=== PATIENT | male | born 1950 | race Caucasian/White ===

== ENCOUNTER 2017-02-26 17:46 | Emergency (ER) | payer MEDICARE, MEDICAID, SELFPAY ==
[2017-02-26 17:47] VITALS: BP 137/77; PULSE 64; RESP 18; TEMP 37.3; O2SAT 95; BMI 20.9
[2017-02-26 18:05] VITALS: BP 155/89; PULSE 78; RESP 18; TEMP 37.6; O2SAT 96; BMI 21.1
[2017-02-26 19:26] VITALS: BP 147/88; PULSE 85; RESP 20; TEMP 37.1; O2SAT 96; BMI 22.2
--- NOTE | 2017-02-26 19:31 | XR_ITS ---
XR chest 2V Ordering Physician: Cristhian Thacker Patient Age: 66 years: Male HISTORY: ITS.REASON: CHEST CONGESTIONcough 2 days. Smoker TECHNIQUE: PA and lateral chest COMPARISON :Previous PA and lateral chest 02/21/2016 FINDINGS A suspect there is a subtle patchy infiltrate towards the left base on today's study involving the left lower lobe. There are some chronic changes which is been seen here previously but the density in this region is more pronounced than on previous studies. Upper normal markings at the right infrahilar region. Upper lung marin appear stable. The heart annie and mediastinal structures unchanged. Postsurgical changes lower C-spine. T-spine appears unchanged again noting the mild inferior endplate irregularity inferior L1 vertebral IMPRESSION: ------- Low-density patchy left lower lobe pneumonia.
[2017-02-26 19:48] LABS: UTC Influenza A Antigen Negative (Negative); UTC Influenza B Antigen Negative (Negative)
--- NOTE | 2017-02-26 20:44 | PC.NURSE ---
Just went in to see pt. C/o cough x 1 week that has progressed to dizziness, diaphoresis, weakness, no appetite, SOA last 2-3 days. CXR final before I saw pt and indicates LLL PNA. Discussed with PCP and ER MD, Dr. Vance. Aware I feel pt would benefit from full PNA workup given symptoms. Dr. Vance agreeable to transfer to ER. Pt taken over in w/c by DENISSE Boucher.
--- NOTE | 2017-02-26 23:40 | HMH.EDSOB ---
ED Disposition Clinical Impression: CAP (community acquired pneumonia) Qualifiers: Laterality: right Lung location: lower lobe of lung Qualified Code(s): J18.1 - Lobar pneumonia, unspecified organism Disposition: Home, Self-Care Condition on Discharge: Good Instructions: Pneumonia-Adult Additional Instructions: fluids and use meds and see pcp for follow up Prescriptions: Azithromycin [Zithromax 250mg tab] 250 mg PO DIRECTED #6 tab Benzonatate [Tessalon Perle 100mg Cap] 100 mg PO TID #30 cap predniSONE [Prednisone 20mg Tab] 20 mg PO DAILY #10 tab Referrals: John Vance MD [Primary Care Provider] - - Critical Care Critical Care Time: No Attestation: On 02/26/17, the high probability of a clinically significant, sudden or life threatening deterioration of the following system(s) required my full and direct attention, intervention and personal management. The time I documented below is in addition to time spent performing reported procedures but includes the following listed in this critical care notation. Medical Decision Making - Medical Records Medical records reviewed: Yes: I reviewed the patient's medical records. Vital Signs: 02/26/17 17:47 02/26/17 18:05 02/26/17 19:26 Temperature 99.1 F 99.6 F 98.7 F Temperature Source Oral Oral Temporal Artery Scan Pulse Rate [Right Brachial] 64 78 85 Respiratory Rate 18 18 20 Blood Pressure [Right Arm] 137/77 155/89 147/88 Blood Pressure Mean [Right Arm] 97 111 107 Blood Pressure Source [Right Arm] Automatic Cuff Automatic Cuff Blood Pressure Position [Right Arm] Sitting Sitting 02 Sat by Pulse Oximetry 95 96 96 Oxygen Delivery Method Room Air Room Air - Lab Data Lab results reviewed: Yes: I reviewed the patient's lab results. Lab Results 02/26/17 19:29: Influenza Type A Ag Negative, Influenza Type B Ag Negative 02/26/17 23:20: WBC 11.2 H, RBC 4.87, Hgb 14.0 L, Hct 42.0, MCV 86.3, MCH 28.8, MCHC 33.4, RDW 12.3, Plt Count 327, MPV 7.1 L, Neut % (Auto) 76.0, Lymph % (Auto) 18.4, Clinch % (Auto) 4.1, Eos % (Auto) 1.2, Baso % (Auto) 0.3, Neut # (Auto) 8.5 H, Lymph # (Auto) 2.1, Clinch # (Auto) 0.5, Eos # (Auto) 0.1, Baso # (Auto) 0.0 02/26/17 23:20: Sodium 135 L, Potassium 3.9, Chloride 99, Carbon Dioxide 30, Anion Gap 9.9, BUN 18, Creatinine 0.94, Estimated Creat Clear 65, Estimated GFR 81, Est GFR ( Amer) 97, Glucose 99, Calcium 9.0, Total Bilirubin 0.4, AST 12 L, ALT 12, Alkaline Phosphatase 72, Total Protein 7.3, Albumin 2.9 L, Globulin 4.4 H, Albumin/Globulin Ratio 0.7 L 02/26/17 23:20: Lactic Acid 0.9 Result diagrams: 02/26/17 23:20 02/26/17 23:20 Orders (Tests/Meds): ED MEDICATIONS Discontinued Medications Generic Name Dose Route Start Last Admin Trade Name Benjaminq PRN Reason Stop Dose Admin Methylprednisolone Sodium Succinate 125 mg 02/26/17 23:51 02/26/17 23:59 Solu-Medrol 125mg/2ml Vial IV 02/26/17 23:52 125 mg ONCE ONE Administration ORDERS Category Date Time Status Upper Respiratory Panel, PCR Stat Lab 02/26/17 23:40 Received Blood Culture Stat Micro 02/26/17 23:20 Received - Radiology Data #1 Image(s): Chest Image Reviewed: Yes I reviewed the patient's radiology image Preliminary Findings: Abnormal (lll changes) - Salvador Inquiry Pt receiving controlled substance: No Resp/SOB HPI - General Chief Complaint: Upper Respiratory Infection Stated Complaint: weak, headache, body aches Time Seen by Provider: 02/26/17 23:40 Mode of Arrival: Ambulatory Source of Information: Patient Limitations: No Limitations Description of Symptoms (Recalled from ER Triage Doc. by RN): FEELS LIKE I HAVE THE FLU. SICK FOR 1 WEEK - History of Present Illness pt with sob and prod cough w/o hemoptysis over the last week - MD Complaint: shortness of breath, cough Onset (ago): day(s) Severity: moderate Exacerbating factors: coughing Treatment prior to arrival: none - Related Data Home oxyge
[2017-02-26 23:51] LABS: Basophils % 0.3 % (0.1-2.0); Eosinophils # 0.1 K/mm3 (0.0-0.4); Eosinophils % 1.2 % (0.1-12.0); Lymphocytes # 2.1 K/mm3 (0.7-4.5); Lymphocytes % 18.4 K/mm3 (10-50); Mean Corpuscular HGB Conc 33.4 g/dL (31.8-35.4); Mean Corpuscular Hemoglobin 28.8 pg (27.0-31.2); Mean Corpuscular Volume 86.3 fl (80-94); Mean Platelet Volume 7.1 fl (7.4-10.4); Monocytes # 0.5 K/mm3 (0.1-1.0); Monocytes % 4.1 % (1.7-9.3); Neutrophils # 8.5 K/mm3 (1.8-7.8); Platelet Count 327 K/mm3 (142-424); Red Blood Count 4.87 M/mm3 (4.60-6.20); Red Cell Distribution Width 12.3 % (11.5-17.5); White Blood Count 11.2 K/mm3 (4.8-10.8)
[2017-02-26 23:56] LABS: Adenovirus,PCR Not Detected (NotDetected); Bordetella Pertussis Not Detected (NotDetected); Chlamydophila Pneumoniae, PCR Not Detected (NotDetected); Coronavirus 229E Not Detected (NotDetected); Coronavirus NL63 Not Detected (NotDetected); Coronavirus OC43 Not Detected (NotDetected); Coronovirus HKU1,PCR Not Detected (NotDetected); Human Metapneumovirus Not Detected (NotDetected); Influenza A, PCR Not Detected (NotDetected); Influenza AH1, 2009 Not Detected (NotDetected); Influenza AH1, PCR Not Detected (NotDetected); Influenza AH3,PCR Not Detected (NotDetected); Influenza B, PCR Not Detected (NotDetected); Mycoplasma Pneumoniae, PCR Not Detected (NotDected); Parainfluenza 1, PCR Not Detected (NotDetected); Parainfluenza 2, PCR Not Detected (NotDetected); Parainfluenza 3, PCR Not Detected (NotDetected); Parainfluenza 4, PCR Not Detected (NotDetected); Respiratory Syncytial Virus Not Detected (NotDetected); Rhinovirus/Enterovirus Not Detected (NotDetected)
[2017-02-27 00:03] LABS: Lactic Acid 0.9 mmol/L (0.4-2.0)
[2017-02-27 00:05] LABS: Alanine Aminotransferase 12 U/L (12-78); Albumin Level 2.9 gm/dL (3.4-5.0); Albumin/Globulin Ratio 0.7 (1.1-1.8); Alkaline Phosphatase 72 U/L (46-116); Anion Gap 9.9 mEq/L (5-15); Aspartate Amino Transferase 12 U/L (15-37); Bilirubin,Total 0.4 mg/dL (0.2-1.0); Blood Urea Nitrogen 18 mg/dL (7-18); Carbon Dioxide 30 mmol/L (21.0-32.0); Chloride 99 mmol/L (98-107); Creatinine Clearance Estimated 65 mL/min (0-300); Creatinine,Serum 0.94 mg/dL (0.70-1.30); Estimated Glomerular Filt Rate 81 ml/min (>60); GFR (African American) 97 ML/MIN (>60); Globulin 4.4 gm/dl (1.3-3.2); Glucose 99 mg/dL (74-106); Potassium 3.9 mmoL/L (3.5-5.1); Sodium 135 mmol/L (136-145); Total Protein,Serum 7.3 gm/dL (6.4-8.2)
== END 2017-02-27 01:39 | disposition home or self-care (01) ==
LOC: UTC 19:08 → ER 20:46
PROVIDERS: Emergency Provider Nurse Practitioner Family; PCP Emergency Medicine
DX: J18.9 Pneumonia, unspecified organism (principal); Z79.891 Long term (current) use of opiate analgesic; Z79.899 Other long term (current) drug therapy; F17.210 Nicotine dependence, cigarettes, uncomplicated
CPT/HCPCS: 71046; 80053; 83605; 85025; 87040; 87486; 87581; 87633; 87798; 87804; 99283

== ENCOUNTER → 2017-03-23 08:48 | Outpatient (CLI) | payer MEDICARE, MEDICAID, SELFPAY ==
--- NOTE | 2017-03-23 09:06 | MR_ITS ---
MR lumbar spine wo con, MR 3-d myelogram/MRCP HISTORY: Low back pain with tingling and numbness down both legs ITS.REASON: LUMBAR RADICULOPATHY ORDERING PHYSICIAN: Adali Browne MD PATIENT AGE: 67 years COMPARISON: 07/21/2010 TECHNIQUE: Standard multiplanar multiecho sequences are performed without contrast. 3-D MIP and myelographic images are also rendered and reviewed FINDINGS: Spinal cord ends at the T12-L1 level. T12-L1: Unremarkable. L1-L2: Mild degenerative disc disease with minimal bulging disc with a Schmorl's node along the inferior endplate of L1 anteriorly. Mild facet ligamentum flavum hypertrophy. L2-L3: Mild concentric bulging disc with mild retrolisthesis of L2 of 3 mm. Mild facet ligamentum hypertrophy. Mild left foraminal narrowing. L3-L4: Mild concentric bulging disc along facet ligamentum flavum hypertrophy with mild to moderate bilateral foraminal narrowing. L4-L5: Mild concentric bulging disc with facet and ligamentum hypertrophy with bilateral lateral recess narrowing and [id number] bilateral foraminal narrowing slightly greater on the left. Small T2 hyperintensity is present along the medial aspect of the facet joint and may represent the beginning of a small synovial cyst measuring approximately 3 to 4 mm AP and 15 mm cephalad to caudad causing mild left lateral recess narrowing. Mild narrowing of the canal at L4-L5 L5-S1: Minimal bulging disc. No canal stenosis or extruded herniated disc evident. IMPRESSION: 1. Mild lumbar spondylosis with mild multilevel degenerative disc disease with bulging disc along the facet ligamentum flavum hypertrophy with varying areas of foraminal lateral recess narrowing. Please see above for detailed description at each level. 2. Mild concentric bulging disc with facet and ligamentum hypertrophy with bilateral lateral recess narrowing and [id number] bilateral foraminal narrowing slightly greater on the left. Small T2 hyperintensity is present along the medial aspect of the facet joint and may represent the beginning of a small synovial cyst measuring approximately 3 to 4 mm AP and 15 mm cephalad to caudad causing mild left lateral recess narrowing. Mild narrowing of the canal at L4-L5
--- NOTE | 2017-03-23 09:06 | MR_ITS ---
MR lumbar spine wo con, MR 3-d myelogram/MRCP HISTORY: Low back pain with tingling and numbness down both legs ITS.REASON: LUMBAR RADICULOPATHY ORDERING PHYSICIAN: Adali Browne MD PATIENT AGE: 67 years COMPARISON: 07/21/2010 TECHNIQUE: Standard multiplanar multiecho sequences are performed without contrast. 3-D MIP and myelographic images are also rendered and reviewed FINDINGS: Spinal cord ends at the T12-L1 level. T12-L1: Unremarkable. L1-L2: Mild degenerative disc disease with minimal bulging disc with a Schmorl's node along the inferior endplate of L1 anteriorly. Mild facet ligamentum flavum hypertrophy. L2-L3: Mild concentric bulging disc with mild retrolisthesis of L2 of 3 mm. Mild facet ligamentum hypertrophy. Mild left foraminal narrowing. L3-L4: Mild concentric bulging disc along facet ligamentum flavum hypertrophy with mild to moderate bilateral foraminal narrowing. L4-L5: Mild concentric bulging disc with facet and ligamentum hypertrophy with bilateral lateral recess narrowing and [id number]-rh-[id number] bilateral foraminal narrowing slightly greater on the left. Small T2 hyperintensity is present along the medial aspect of the facet joint and may represent the beginning of a small synovial cyst measuring approximately 3 to 4 mm AP and 15 mm cephalad to caudad causing mild left lateral recess narrowing. Mild narrowing of the canal at L4-L5 L5-S1: Minimal bulging disc. No canal stenosis or extruded herniated disc evident. IMPRESSION: 1. Mild lumbar spondylosis with mild multilevel degenerative disc disease with bulging disc along the facet ligamentum flavum hypertrophy with varying areas of foraminal lateral recess narrowing. Please see above for detailed description at each level. 2. Mild concentric bulging disc with facet and ligamentum hypertrophy with bilateral lateral recess narrowing and [id number] bilateral foraminal narrowing slightly greater on the left. Small T2 hyperintensity is present along the medial aspect of the facet joint and may represent the beginning of a small synovial cyst measuring approximately 3 to 4 mm AP and 15 mm cephalad to caudad causing mild left lateral recess narrowing. Mild narrowing of the canal at L4-L5
== END ==
PROVIDERS: PCP Emergency Medicine; Visit Provider Physical Medicine & Rehabilitation
DX: M54.5 Low back pain (principal)
CPT/HCPCS: 72148; 76376

== ENCOUNTER → 2017-03-30 13:17 | Outpatient (CLI) | payer MEDICARE, MEDICAID, SELFPAY ==
--- NOTE | 2017-03-30 13:27 | MR_ITS ---
MR cervical spine wo/w con, MR 3-d myelogram/MRCP HISTORY: ITS.REASON: CERVICAL POST LAMINECTOMY SYNDROME ORDERING PHYSICIAN: Adali Browne MD PATIENT AGE: 67 years COMPARISON: 06/20/2010 TECHNIQUE: Standard multiplanar multiecho sequences are performed without and with gadolinium enhancement . 3-D MIP and myelographic images are also rendered and reviewed FINDINGS: There has been prior cervical fusion with fusion of the C5-C6 vertebral bodies. Posterior fixator device is present with interpedicular screws at C4, C5, and C6 and C7. The craniocervical junction has an unremarkable appearance. C2-C3: Unremarkable. C3-C4: Extensive artifact is present on axial images. No obvious disc herniation. There is mild narrowing of the canal at 9 mm C4-C5: Degenerative disc disease. Prior laminectomy at C4 with posterior fixation. Extensive artifact noted from interpedicular screws C5-C6: Prior fusion with extensive artifact from interpedicular screws. C6-C7: Degenerative disc disease extensive artifact from interpedicular screws. C7-T1: Unremarkable. No enhancing epidural fibrosis IMPRESSION: Postsurgical changes with extensive artifact as described above and multilevel degenerative disc disease. Interpedicular screws at C4, C5, C6, and C7. Borderline canal stenosis at C3-C4. No enhancing epidural fibrosis No disc herniation evident.
[2017-03-30 13:33] LABS: Blood Urea Nitrogen 16 mg/dL (7-18); Creatinine,Serum 1.13 mg/dL (0.70-1.30); Estimated Glomerular Filt Rate 65 ml/min (>60); GFR (African American) 79 ML/MIN (>60)
== END ==
PROVIDERS: PCP Emergency Medicine; Visit Provider Physical Medicine & Rehabilitation
DX: M96.1 Postlaminectomy syndrome, not elsewhere classified (principal); M54.12 Radiculopathy, cervical region
CPT/HCPCS: 36415; 72156; 76376; 82565; 84520; A9576

== ENCOUNTER → 2017-11-19 14:27 | Outpatient (POV) | payer MEDICARE, MEDICAID, SELFPAY ==
[2017-11-19 14:44] VITALS: BP 160/80; PULSE 88; RESP 18; O2SAT 98
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
== END ==
PROVIDERS: PCP Emergency Medicine; Visit Provider Clinical Nurse Specialist Family Health
DX: M54.41 Lumbago with sciatica, right side (principal); M54.42 Lumbago with sciatica, left side
CPT/HCPCS: 99202

== ENCOUNTER → 2018-01-16 18:13 | Outpatient (CLI) | payer MEDICARE, MEDICAID, SELFPAY ==
[2018-01-16 22:42] LABS: Amphetamine/Metha Screen,Urine Negative ng/mL (<1000); Barbiturates Screen,Urine Negative ng/mL (<200); Benzodiazepines Screen,Urine Negative ng/mL (<200); Cannabinoid Screen,Urine Negative ng/mL (<50); Cocaine Screen,Urine Negative ng/mL (<300); Methadone Screen,Urine Negative ng/mL (<300); Opiate Screen,Urine Negative ng/mL (<300); Phencyclidine Screen,Urine Negative ng/mL (<25)
== END ==
PROVIDERS: Visit Provider Emergency Medicine
DX: M54.2 Cervicalgia (principal)
CPT/HCPCS: 80305

== ENCOUNTER → 2018-12-05 14:41 | Outpatient (CLI) | payer MEDICARE, MEDICAID, SELFPAY ==
--- NOTE | 2018-12-05 14:46 | MR_ITS ---
PROCEDURE: MR CERVICAL SPINE WO CON CLINICAL INDICATION: CERVICAL RADICULOPATHY Bilateral shoulder and arm pain with bilateral hand tingling. Prior neck surgery, COMPARISON: CSWO CT CERVICAL SPINE W/O CONT from 07/11/2012 [facility] MR cervical spine wo/w con from 03/30/2017 TECHNIQUE: Standard multiplanar multiecho sequences are performed without contrast. 3-D MIP and myelographic images are also rendered and reviewed FINDINGS: There is normal alignment. The cranial cervical junction has an unremarkable appearance. C2-C3: Unremarkable. C3-C4: Unremarkable. C4-C5: Degenerate disc disease with minimal anterolisthesis of C4 of 3 mm. Postsurgical change with inter pedicular screws as C4 C5-C6: Prior fusion with extensive artifact. There artifact obscures fine detail. There is good alignment at the fusion. The vertebral bodies are fused. C6-C7: Degenerate disc disease with some mild bulging disc slightly eccentric toward the right with mild right-sided foraminal narrowing. There is some increased T1 and T2 signal along the superior endplate of C7.. Inter pedicular screws are present at C7. The right inter pedicular screws directed downward and extends into the C7-T1 interspace. This is better demonstrated on the CT scan and unchanged from 07/11/2012. Artifact is present at this level. No malalignment. There is mild reversal of the cervical lordosis at the C4-C5 level. There is canal stenosis at C3-C4 a 10 mm but no cord impingement apparent. There is overall no significant change from the previous MRI of 03/30/2017. IMPRESSION: Degenerative changes and postsurgical changes as described above with canal stenosis at C3-C4. Please see above for detailed description at each level. Overall no significant change compared to the previous exam Dictated by: Stewart Nguyen MD 12/06/2018 12:12 Electronically signed by Stewart Nguyen MD in [place] 12/07/2018 10:13
== END ==
PROVIDERS: PCP Emergency Medicine; Visit Provider Anesthesiology Pain Medicine
DX: M54.12 Radiculopathy, cervical region (principal); M47.812 Spondylosis without myelopathy or radiculopathy, cervical region; M96.1 Postlaminectomy syndrome, not elsewhere classified
CPT/HCPCS: 72141; 76376

== ENCOUNTER 2020-03-18 07:56 | Observation (INO) | payer MEDICARE, MEDICAID, SELFPAY ==
[2020-03-18] VITALS (13 sets, daily range): BP systolic 130–178; BP diastolic 66–106; PULSE 62–91; RESP 17–22; TEMP 36.8–37.1; O2SAT 95–99; BMI 21.6
--- NOTE | 2020-03-18 07:53 | ECG_ITS ---
APPROVED REPORT Exam: Resting ECG HR:70 bpm ECG Measurements Heart Rate 70 AXES PA 138 P 79 QRSd 100 QRS 75 QT 386 T 55 QTc 416 Conclusion Normal sinus rhythm with sinus arrhythmia Normal ECG Electronically signed by : Mendez Romano, 03/19/2020 06:39:12
--- NOTE | 2020-03-18 07:59 | XR_ITS ---
PROCEDURE: XR CHEST PORTABLE CLINICAL HISTORY: SOA COMPARISON: CR CXR CHEST(2 VIEWS-NOT PORTABLE) from 02/03/2016 CR CXR CHEST(2 VIEWS-NOT PORTABLE) from 02/21/2016 CR CXR2V XR chest 2V from 02/26/2017 FINDINGS: The cardiomediastinal silhouette and pulmonary vascularity are within normal limits. Vague increased density is present in the right midlung laterally overlying the 4th rib anteriorly and may be related to an area of patchy ground-glass infiltrate versus summation artifact. Follow-up may confirm. Postsurgical changes of the lower cervical spine IMPRESSION: Possible right midlung infiltrate Dictated by: Stewart Nguyen MD 03/18/2020 09:02 Stewart Nguyen MD in [place] 03/18/2020 09:02
--- NOTE | 2020-03-18 08:05 | HMH.EDSOB ---
ED Disposition Clinical Impression: Acute exacerbation of chronic obstructive airways disease, Renal insufficiency CAP (community acquired pneumonia) Qualifiers: Laterality: right Lung location: upper lobe of lung Qualified Code(s): J18.9 - Pneumonia, unspecified organism Disposition: Admitted As Inpatient Condition on Discharge: Good Referrals: PCP,No [Primary Care Provider] - - Critical Care Critical Care Time: No Attestation: On , the high probability of a clinically significant, sudden or life threatening deterioration of the following system(s) required my full and direct attention, intervention and personal management. The time I documented below is in addition to time spent performing reported procedures but includes the following listed in this critical care notation. Medical Decision Making - Medical Records Medical records reviewed: Yes: I reviewed the patient's medical records. - [place] Inquiry Pt receiving controlled substance: No Vital Signs: 03/18/20 08:01 03/18/20 08:40 03/18/20 09:10 Pulse Rate [Right Brachial] 77 64 62 Respiratory Rate 22 Blood Pressure [Right Arm] 178/106 H 154/90 H 146/94 H Blood Pressure Mean [Right Arm] 130 111 111 Blood Pressure Source [Right Arm] Automatic Cuff Automatic Cuff Automatic Cuff Blood Pressure Position [Right Arm] Sitting Sitting Sitting 02 Sat by Pulse Oximetry 97 97 98 Oxygen Delivery Method Room Air Room Air Room Air Oxygen Flow Rate (LPM) 2 - Lab Data Lab results reviewed: Yes: I reviewed the patient's lab results. Lab Results 03/18/20 07:58: WBC 9.1, RBC 4.99, Hgb 14.6, Hct 45.2, MCV 90.7, MCH 29.2, MCHC 32.2, RDW 13.7, Plt Count 248, MPV 7.2 L, Neut % (Auto) 43.2, Lymph % (Auto) 43.8, [place] % (Auto) 4.4, Eos % (Auto) 7.7, Baso % (Auto) 0.9, Neut # (Auto) 3.9, Lymph # (Auto) 4.0, [place] # (Auto) 0.4, Eos # (Auto) 0.7 H, Baso # (Auto) 0.1 03/18/20 07:58: Sodium 139, Potassium 3.9, Chloride 104, Carbon Dioxide 32 H, Anion Gap 6.9, BUN 21 H, Creatinine 1.30 H, Estimated Creat Clear 45, Estimated GFR 55 L, Est GFR ( Amer) 66, Glucose 97, Calcium 9.1, Total Bilirubin 0.3, AST 25, ALT 17, Alkaline Phosphatase 74, Troponin I < 0.01, Total Protein 7.2, Albumin 4.0, Globulin 3.2, Albumin/Globulin Ratio 1.3 03/18/20 07:58: Lactate 1.3 03/18/20 : Specimen Source Right radial, O2 % 2lpm nc, ABG pH 7.39, ABG pCO2 40.2, ABG pO2 177.8 H, ABG HCO3 23.8, ABG Total CO2 25.1, ABG O2 Saturation 99, ABG Base Excess -1.1, Stewart Test Acceptable Result diagrams: 03/18/20 07:58 03/18/20 07:58 Orders (Tests/Meds): ED MEDICATIONS Generic Name Dose Route Start Last Admin Trade Name Freq PRN Reason Stop Dose Admin Sodium Chloride 1,000 mls @ 999 mls/hr 03/18/20 09:30 03/18/20 09:26 Sod Chlor 0.9% 1000ml Bag IV 03/18/20 10:30 999 mls/hr .Q1H1M GERALDO Administration Discontinued Medications Generic Name Dose Route Start Last Admin Trade Name Freq PRN Reason Stop Dose Admin Dexamethasone Sodium Phosphate 10 mg 03/18/20 09:35 03/18/20 09:36 Dexamethasone 4mg/Ml 1ml Vial IV 03/18/20 09:36 10 mg ONCE ONE Administration ORDERS Category Date Time Status Full Resp Panel w/COVID ([facility]) Routine Lab 03/18/20 07:58 Received Troponin I Q3H Lab 03/18/20 11:00 Ordered Troponin I Q3H Lab 03/18/20 14:00 Ordered Blood Culture Stat Micro 03/18/20 07:58 Received - Radiology Data #1 Image(s): Chest Image Reviewed: Yes I reviewed the patient's radiology image Preliminary Findings: Abnormal (possible inflitrate ) - ECG Data Tracing #1 Normal Sinus Rhythm: Yes Ischemic changes: non-specific ST-T wave changes Medical Decision Narrative: acute sob with abn cxr and abg as he wason 100 % in ems - pt will need treatment with abx and steroids and resp treatment and determine covid-19 status Resp/SOB HPI - General Chief Complaint: Shortness of Breath/Dyspnea Stated Complaint: Soa Time Seen by Provider: 03/18/20 08:05 Mod
[2020-03-18 08:07] LABS: ABG Base Excess -1.1 mmol/L (-2.4-2.3); ABG HCO3 23.8 mmhg (22.0-26.0); ABG Oxygen Saturation 99 % (90-100); ABG PCO2 40.2 mmhg (35.0-45.0); ABG PH 7.39 mmol/L (7.35-7.45); ABG PO2 177.8 mmhg (80-100); ABG TCO2 25.1 mmhg (23-27); Allen's Test Acceptable; Oxygen 2LPM NC %; Source Right Radial
[2020-03-18 08:14] LABS: Basophils # 0.1 K/mm3 (0-0.2); Basophils % 0.9 % (0.1-2.0); Eosinophils # 0.7 K/mm3 (0.0-0.4); Eosinophils % 7.7 % (0.1-12.0); Hematocrit 45.2 % (42.0-52.0); Hemoglobin 14.6 g/dL (14.1-18.0); Lymphocytes % 43.8 % (10-50); Mean Corpuscular HGB Conc 32.2 g/dL (31.8-35.4); Mean Corpuscular Hemoglobin 29.2 pg (27.0-31.2); Mean Corpuscular Volume 90.7 fl (80-94); Mean Platelet Volume 7.2 fl (7.4-10.4); Monocytes # 0.4 K/mm3 (0.1-1.0); Monocytes % 4.4 % (1.7-9.3); Neutrophils # 3.9 K/mm3 (1.8-7.8); Neutrophils % 43.2 % (37.0-80.0); Platelet Count 248 K/mm3 (142-424); Red Blood Count 4.99 M/mm3 (4.60-6.20); Red Cell Distribution Width 13.7 % (11.5-17.5); White Blood Count 9.1 K/mm3 (4.8-10.8)
[2020-03-18 08:17] LABS: Chloride 104 mmol/L (98-107)
[2020-03-18 08:18] LABS: Potassium 3.9 mmoL/L (3.5-5.1); Sodium 139 mmol/L (136-145)
[2020-03-18 08:20] LABS: Alanine Aminotransferase 17 U/L (12-78); Alkaline Phosphatase 74 U/L (38-126); Anion Gap 6.9 mEq/L (5-15); Aspartate Amino Transferase 25 U/L (17-59); Bilirubin,Total 0.3 mg/dl (0.2-1.3); Blood Urea Nitrogen 21 mg/dl (9-20); Carbon Dioxide 32 mmol/L (22.0-30.0); Creatinine Clearance Estimated 45 mL/min (50-200); Estimated Glomerular Filt Rate 55 ml/min (>60); GFR (African American) 66 ML/MIN (>60)
[2020-03-18 08:21] LABS: Albumin/Globulin Ratio 1.3 (1.1-1.8); Calcium 9.1 mg/dl (8.4-10.2); Globulin 3.2 g/dL (1.3-3.2); Glucose 97 mg/dl (74-100); Total Protein,Serum 7.2 g/dl (6.3-8.2)
[2020-03-18 08:24] LABS: Lactic Acid 1.3 mmol/L (0.7-2.1)
[2020-03-18 08:39] LABS: Troponin I < 0.01 ng/ml (0.00-0.034)
[2020-03-18 09:46] LABS: Adenovirus,PCR Not Detected (NotDetected); Bordetella Pertussis Not Detected (NotDetected); Chlamydophila Pneumoniae, PCR Not Detected (NotDetected); Coronavirus 19, PCR Not Detected (NotDetected); Coronavirus 229E Not Detected (NotDetected); Coronavirus NL63 Not Detected (NotDetected); Coronavirus OC43 Not Detected (NotDetected); Coronovirus HKU1,PCR Not Detected (NotDetected); Human Metapneumovirus Not Detected (NotDetected); Influenza A, PCR Not Detected (NotDetected); Influenza AH1, 2009 Not Detected (NotDetected); Influenza AH1, PCR Not Detected (NotDetected); Influenza AH3,PCR Not Detected (NotDetected); Influenza B, PCR Not Detected (NotDetected); Mycoplasma Pneumoniae, PCR Not Detected (NotDetected); Parainfluenza 1, PCR Not Detected (NotDetected); Parainfluenza 2, PCR Not Detected (NotDetected); Parainfluenza 3, PCR Not Detected (NotDetected); Parainfluenza 4, PCR Not Detected (NotDetected); Respiratory Syncytial Virus Not Detected (NotDetected); Rhinovirus/Enterovirus Not Detected (NotDetected)
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
--- NOTE | 2020-03-18 10:39 | CA_ITS ---
APPROVED REPORT EXAM: Comprehensive 2D, Doppler, and color-flow Echocardiogram [employer] Sales: Joycelyn Villaseñor RCS, RVS Ht: 5 ft 5 in Wt: 130lbs BSA: 1.65 BP: 151/89 mmHg Indications: COPD, SMOKER, CAD-w/coronary stent/s, SOB, Murmur, HTN 2D Dimensions LA Volume 34.40 mL LA Volume Index 20.80 mL/m2 (M/F) 16-34 M-Mode Dimensions RVDd 3.79 cm (0.9-2.6) LA Diam 3.44 cm (1.9-4.0) LVDd 3.79 cm (3.5-5.7) Ao Diam 3.05 cm (2.0-3.7) LVDs 2.59 cm (3.5-5.7) IVSd 1.11 cm (0.6-1.1) PWd 0.82 cm (0.6-1.1) EF (Teich) 49.30% EPSs 0.32 cm FS 24.30% EDV (Teich) 48.10 mL TAPSE 1.88 (<1.7) ESV (Teich) 24.40 mL LV Diastology E Decel Time 233.00 (160-240 msec) E/A Ratio 1.07 MED E' 7.50 (< 7 cm/sec) MED A' 11.20 cm/s E'/MED E' Ratio 10.13 (>14) LAT E' 10.00 (<10 cm/sec) LAT A' 8.90 cm/s E/LAT E' Ratio 7.60 (>14) Pulm Vein s 40.00 cm/sec Pulm Vein d 30.00 cm/sec Ar-A Duration 177.00 msec Aortic Valve LVOT Max 96.00 (70-110 cm/s) LVOT VTI 19.38 cm AO Peak GR. 4.20 mmHg Mitral Valve MV A Velocity 71.00 (40-130 cm/s) E/A Ratio 1.07 MV Decel. Time 233.00 (160-240 ms) Pulmonary Valve PV Peak Velocity 65.00 (50-150 cm/s) Tricuspid Valve TR P. Velocity 231.00 cm/s RAP Estimate 10.00 mmHg RVSP 31.30 mmHg Left Ventricle Left atrium is mildly enlarged, left ventricle is normal size, mild concentric left ventricular hypertrophy, visually estimated ejection fraction 50%, there is marked hypokinesis involving the inferior basal and posterolateral wall. Grade 1 diastolic dysfunction seen without tissue Doppler evidence of raise left atrial pressure. Right Ventricle Right atrium and right ventricle are mildly enlarged with normal contractility. Aortic Valve Aortic valve is minimally thickened and fibrosed, there is no aortic stenosis or aortic insufficiency. Mitral Valve Mitral valve is grossly normal, there is mild mitral regurgitation. Tricuspid Valve Tricuspid valve is grossly normal, there is mild tricuspid regurgitation, tricuspid regurgitation jet velocity is inadequate for calculation of the right ventricular systolic pressure. Pulmonic Valve Pulmonic valve is poorly visualized. Great Vessels Aortic root is normal size. Pericardium No significant pericardial effusion noted. Conclusion 1. Mild biatrial enlargement, normal left ventricular size, mild concentric left ventricular hypertrophy, visually estimated ejection fraction 50% with segmental wall motion abnormality described above, grade 1 diastolic dysfunction seen without tissue Doppler evidence of raise left atrial pressure. 2. Mildly enlarged right ventricle with normal contractility. 3. Mild mitral and tricuspid regurgitation. 4. No significant pericardial effusion noted. Electronically signed by : Sj Adkins, 03/19/2020 13:18:19
--- NOTE | 2020-03-18 10:47 | PC.NURSE ---
Per Ashli in lab swab has about 15 minutes left
[2020-03-18 11:25] LABS: Troponin I < 0.01 ng/ml (0.00-0.034)
--- NOTE | 2020-03-18 11:53 | PC.NURSE ---
This nurse went down @ 1120 to get pt. Echo @ bedside, pt not brought up to floor d/t this. Left message for ED staff to call when pt ready for transport.
--- NOTE | 2020-03-18 12:27 | PC.NURSE ---
patient came to floor by stretcher
--- NOTE | 2020-03-18 13:47 | PC.NURSE ---
pt given cup and instructed on cough. Given treatment with no results at this time.
[2020-03-18 14:42] LABS: Troponin I < 0.01 ng/ml (0.00-0.034)
--- NOTE | 2020-03-18 15:15 | PC.NURSE ---
Room air sat @ admission = 97%
--- NOTE | 2020-03-18 18:57 | PC.NURSE ---
Pt on 2 L O2 per nasal cannula for SOA. Medicated per MAR for chronic neck/back pain. Is independent w/ ADL's. Pt did get up and shower w/o issue, tolerated activity well. VSS. No needs voiced.
--- NOTE | 2020-03-18 21:51 | HMH.PHAVTE ---
[facility] Pharmacy VTE Monitoring - Patient Demographics Admission date: 03/18/20 Report Date: 03/18/20 Time: 21:51 Allergies/Adverse Reactions: Patient Allergies acetaminophen [From Tylenol-Codeine #3] Allergy (Verified 03/18/20 08:07) codeine [From Tylenol-Codeine #3] Allergy (Verified 03/18/20 08:07) gabapentin Allergy (Verified 03/18/20 08:07) Height: 1.73 m Weight: 59.874 kg Patient Problems: Current Active Problems Acute exacerbation of chronic obstructive airways disease (Acute) Renal insufficiency (Acute) CAP (community acquired pneumonia) (Acute) - VTE Risk Labs: VTE Related Lab Results Hgb 14.6 g/dL (14.1-18.0) 03/18/20 07:58 Hct 45.2 % (42.0-52.0) 03/18/20 07:58 Plt Count 248 K/mm3 (142-424) 03/18/20 07:58 BUN 21 mg/dl (9-20) H 03/18/20 07:58 Creatinine 1.30 mg/dl (0.66-1.25) H 03/18/20 07:58 Estimated Creat Clear 45 mL/min (50-200) 03/18/20 07:58 Was VTE Risk Assessment Performed: Yes VTE Score: 5 VTE Risk Level: Low Risk Clinical Trial Participant: No - Prophylaxis VTE Prophylaxis Ordered?: Yes Types of VTE Prophylaxis: TEDS Knee High
[2020-03-19] VITALS (8 sets, daily range): BP systolic 124–142; BP diastolic 65–78; PULSE 66–81; RESP 18–19; TEMP 36.7–36.8; O2SAT 95–98
--- NOTE | 2020-03-19 04:58 | PC.NURSE ---
Pt has been pleasant and cooperative this shift. A&O X4. Pt has had frequent complaints of pain and has received Oxycodone per MAR with favorable results. No complaints of SOA. Room air saturation noted to be 97%. O2 in place @ 1 LPM via NC per pt request for comfort. Lung sounds reveal wheezing. Skin is C/D/I with no edema noted. Pt ambulates independently to/from the bathroom and throughout the room. 20 G peripheral IV in the LT AC is patent and infusing NS @ 75 ML/HR. VSS. Call light within reach. Will continue to monitor.
--- NOTE | 2020-03-19 07:24 | HMH.PHAINT ---
MEDICATION RECONCILIATION COMPLETED ON PATIENT USING EXTERNAL FILL HISTORY FROM PHARMACY AND PATIENT INTERVIEW.
[2020-03-19 07:38] LABS: Eosinophils % 0.2 % (0.1-12.0); Monocytes # 0.3 K/mm3 (0.1-1.0); Monocytes % 1.9 % (1.7-9.3); Neutrophils # 12.2 K/mm3 (1.8-7.8); White Blood Count 13.8 K/mm3 (4.8-10.8)
[2020-03-19 07:41] LABS: Chloride 103 mmol/L (98-107); Potassium 4.1 mmoL/L (3.5-5.1); Sodium 133 mmol/L (136-145)
[2020-03-19 07:44] LABS: Anion Gap 11.1 mEq/L (5-15); Blood Urea Nitrogen 22 mg/dl (9-20); Calcium 8.7 mg/dl (8.4-10.2); Carbon Dioxide 23 mmol/L (22.0-30.0); Creatinine Clearance Estimated 60 mL/min (50-200); Estimated Glomerular Filt Rate 74 ml/min (>60); GFR (African American) 90 ML/MIN (>60); Glucose 202 mg/dl (74-100)
[2020-03-19 07:45] LABS: Magnesium 1.8 mg/dl (1.6-2.3)
[2020-03-19 07:51] LABS: Basophils % 0.1 % (0.1-2.0); Hematocrit 38.9 % (42.0-52.0); Lymphocytes # 1.3 K/mm3 (0.7-4.5); Lymphocytes % 9.6 % (10-50); Mean Corpuscular HGB Conc 33.1 g/dL (31.8-35.4); Mean Corpuscular Hemoglobin 29.2 pg (27.0-31.2); Mean Corpuscular Volume 88.1 fl (80-94); Mean Platelet Volume 7.8 fl (7.4-10.4); Neutrophils % 88.2 % (37.0-80.0); Platelet Count 238 K/mm3 (142-424); Red Blood Count 4.41 M/mm3 (4.60-6.20); Red Cell Distribution Width 13.8 % (11.5-17.5)
[2020-03-19 07:59] LABS: Hemoglobin 12.9 g/dL (14.1-18.0)
[2020-03-19 08:01] LABS: MANUAL DIFFERENTIAL MANUAL DIFFERENTIAL (MANUAL DIFF)
[2020-03-19 09:28] LABS: Lymphocytes % 9 % (10-50); Monocytes % 2 % (2-9); Neutrophils % 89 % (42-76); RBC Morphology Normal; Total Cells Counted 100
[2020-03-19 09:29] LABS: Platelet Estimate Normal
--- NOTE | 2020-03-19 09:55 | HMH.ACPN2 ---
Internal Medicine - PN: Subj *Date: 03/19/20 *Time: 08:15 Interval history: pt sitting up in bed states he is doing better, o2 in place. pt states he does not wear o2 at home, Exam Vital signs and Labs for Last 24 Hours: Temp Pulse Resp BP Pulse Ox 98.3 F 72 18 142/78 H 95 03/19/20 08:00 03/19/20 08:00 03/19/20 08:00 03/19/20 08:00 03/19/20 08:00 Laboratory Results - last 24 hr 03/18/20 07:58: Chlamy pneumoniae PCR Not detected, Adenovirus (PCR) Not detected, B. pertussis DNA (PCR) Not detected, Coronavirus OC43 (PCR) Not detected, Coronavirus HKU1 (PCR) Not detected, Coronavirus 229E (PCR) Not detected, SARS-CoV-2 (PCR) Not detected, Coronavirus NL63 (PCR) Not detected, Human Metapneumovir PCR Not detected, Influenza A (H1) PCR Not detected, Influ A (H1N1/09) PCR Not detected, Influenza A (H3) PCR Not detected, Influenza Type A (PCR) Not detected, Influenza Type B (PCR) Not detected, M. pneumoniae (PCR) Not detected, Parainfluenza 1 (PCR) Not detected, Parainfluenza 2 (PCR) Not detected, Parainfluenza 3 (PCR) Not detected, Parainfluenza 4 (PCR) Not detected, RSV (PCR) Not detected, Entero/Rhino (PCR) Not detected 03/18/20 10:56: Troponin I < 0.01 03/18/20 14:00: Troponin I < 0.01 03/19/20 07:20: WBC 13.8 H D, RBC 4.41 L, Hgb 12.9 L D, Hct 38.9 L, MCV 88.1, MCH 29.2, MCHC 33.1, RDW 13.8, Plt Count 238, MPV 7.8, Neut % (Auto) 88.2 H, Lymph % (Auto) 9.6 L, [place] % (Auto) 1.9, Eos % (Auto) 0.2, Baso % (Auto) 0.1, Neut # (Auto) 12.2 H, Lymph # (Auto) 1.3, [place] # (Auto) 0.3, Eos # (Auto) 0.0, Baso # (Auto) 0.0, Total Counted 100, Neutrophils % (Manual) 89 H, Lymphocytes % (Manual) 9 L, Monocytes % (Manual) 2, Platelet Estimate Normal, RBC Morphology Normal 03/19/20 07:20: Sodium 133 L, Potassium 4.1, Chloride 103, Carbon Dioxide 23 D, Anion Gap 11.1, BUN 22 H, Creatinine 1.00 D, Estimated Creat Clear 60, Estimated GFR 74, Est GFR ( Amer) 90 D, Glucose 202 H D, Calcium 8.7, Magnesium 1.8 I & O for Last 24 hours: Intake & Output 03/16/20 03/17/20 03/18/20 03/19/20 11:59 11:59 11:59 11:59 Intake Total 2174 / 2174 Output Total 1450 / 1450 Balance 724 / 724 Weight 132 lb 132 lb Microbiology Reports for the Last 24 Hours: Microbiology 03/18/20 14:00 Sputum - Expectorated Sputum Gram Stain - Final 03/18/20 14:00 Sputum - Expectorated Sputum Sputum Culture - Preliminary - Constitutional no acute distress - *Routine HEENT Exam Head: Present: normocephalic Eye: Present: PERRL ENT: Present: mucous membranes moist - *Routine Neck Exam Present: supple. Absent: lymphadenopathy - *Routine Respiratory Exam Present: wheezes, diminished air movement - *Routine Cardiovascular Exam Present: RRR - *Routine Abdominal Exam Present: soft, normoactive bowel sounds. Absent: tenderness - *Routine Extremities Exam Present: normal capillary refill. Absent: cyanosis, clubbing, edema - *Routine Skin Exam Present: warm. Absent: rash - *Routine Neurological Exam Present: alert, oriented X3 - Routine Psychiatric Exam Present: normal affect Assessment and Plan (1) HTN (hypertension) Status: Acute Qualifiers: Hypertension type: essential hypertension Qualified Code(s): I10 - Essential (primary) hypertension Category: Medical Code(s): I10 - Essential (primary) hypertension (2) Acute exacerbation of chronic obstructive airways disease Status: Acute Category: Medical Code(s): J44.1 - Chronic obstructive pulmonary disease with (acute) exacerbation (3) CAP (community acquired pneumonia) Status: Acute Qualifiers: Laterality: right Lung location: upper lobe of lung Qualified Code(s): J18.9 - Pneumonia, unspecified organism Category: Medical Code(s): J18.9 - Pneumonia, unspecified organism (4) Renal insufficiency Status: Acute Category: Medical Code(s): N28.9 - Disorder of kidney and ureter, unspecified (5) COPD (chronic obstructive pu
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
--- NOTE | 2020-03-19 12:00 | SW/DCPLANNER ---
This patient does not qualify for home O2: per nursing (Deb) patients RA is 95-96%. This patient could discharge home later today.
--- NOTE | 2020-03-19 17:34 | PC.NURSE ---
PATIENT IS A&O X4, LUNGS ARE DIMINISHED, PULSES EQUAL. PATIENT HAS BEEN ON RA STATING AT 94-96%. PATIENT AMBULATES IN ROOM, STEADY GAIT. PATIENT TOLERATES MEALS. NO CONCERNS.
[2020-03-20 04:00] VITALS: BP 122/74; PULSE 75; RESP 18; TEMP 36.6; O2SAT 95
--- NOTE | 2020-03-20 06:00 | PC.NURSE ---
PT HAS RESTED WELL TONIGHT,AUDIBLE WHEEZING NOTED,NON PRODUCTIVE COUGH,DENIES ANY SOB,SAT.LEVEL THIS MORNING 95% ON RA,AFIBRILE MEDICATED A COUPLE TIMES FOR CHRONIC NECK PAIN,IV PATENT AND INFUSING NS AT 75ML/HR,WILL CONTINUE TO MONITOR
[2020-03-20 06:54] VITALS: PULSE 74; O2SAT 95
[2020-03-20 06:54] LABS: Hematocrit 36.1 % (42.0-52.0); Lymphocytes # 1.4 K/mm3 (0.7-4.5); Lymphocytes % 8.4 % (10-50); Mean Corpuscular HGB Conc 33.3 g/dL (31.8-35.4); Mean Corpuscular Hemoglobin 29.6 pg (27.0-31.2); Mean Corpuscular Volume 88.7 fl (80-94); Mean Platelet Volume 7.4 fl (7.4-10.4); Monocytes # 0.5 K/mm3 (0.1-1.0); Monocytes % 2.9 % (1.7-9.3); Neutrophils # 14.4 K/mm3 (1.8-7.8); Neutrophils % 88.7 % (37.0-80.0); Platelet Count 245 K/mm3 (142-424); Red Blood Count 4.06 M/mm3 (4.60-6.20); White Blood Count 16.3 K/mm3 (4.8-10.8)
[2020-03-20 06:59] LABS: Chloride 107 mmol/L (98-107); MANUAL DIFFERENTIAL MANUAL DIFFERENTIAL (MANUAL DIFF); Sodium 137 mmol/L (136-145)
[2020-03-20 07:02] LABS: Blood Urea Nitrogen 22 mg/dl (9-20); Creatinine Clearance Estimated 59 mL/min (50-200); Estimated Glomerular Filt Rate 74 ml/min (>60); GFR (African American) 90 ML/MIN (>60)
[2020-03-20 07:03] LABS: Calcium 8.4 mg/dl (8.4-10.2); Carbon Dioxide 26 mmol/L (22.0-30.0); Glucose 140 mg/dl (74-100)
[2020-03-20 07:17] LABS: Lymphocytes % 13 % (10-50); Monocytes % 1 % (2-9); Neutrophils % 86 % (42-76); Platelet Estimate Normal; RBC Morphology Normal; Total Cells Counted 100
[2020-03-20 08:00] VITALS: BP 149/74; PULSE 84; RESP 20; TEMP 36.6; O2SAT 94
--- NOTE | 2020-03-20 11:54 | HMH.DCSUM ---
General - General Admission date:: 03/18/20 Discharge date: 03/20/20 HPI HPI: this pt presented to the ed per ems with acute sob with hx of copd-pt was seen in the ed with abn cxr and was admitted for eval and treatment - pt with increased resp rate and requiring o2 - Hospital Course Hospital Course: Admitted for cough/dyspnea/excessive sputum production. Placed on azithromycin, ceftriaxone, solumedrol, and duoneb. Upward clinical trajectory with uptitration of steroids. Initially required 02, weaned to room air and maintained good saturations. BC negative Sputum culture grew out respiratory sh[place]ana. CXR showed process in right midlung. Echo showed ef 50 percent with grade 1 diastolic dysfunction. Pulmonary consult obtained while in house. Initial creatinine elevated at 1.30 yielding lower than normal gfr. Renal function improved via subsequent serial measurements. Objective Vital signs: Temp Pulse Resp BP Pulse Ox 97.9 F 84 20 149/74 H 94 L 03/20/20 08:00 03/20/20 08:00 03/20/20 08:00 03/20/20 08:00 03/20/20 08:00 no acute distress, average body habitus, cooperative - *Routine HEENT Exam Head: Present: normocephalic Eye: Present: EOMI, PERRL ENT: Present: mucous membranes moist - *Routine Neck Exam Present: supple - *Routine Respiratory Exam Present: rhonchi. Absent: accessory muscle use, respiratory distress, wheezes - *Routine Cardiovascular Exam Present: RRR - *Routine Abdominal Exam Present: soft, normoactive bowel sounds. Absent: tenderness - *Routine Extremities Exam Absent: cyanosis, clubbing, edema - *Routine Skin Exam Present: warm. Absent: rash Results Labs on day of discharge: Labs from last 24 hours 03/20/20 03/20/20 06:30 06:30 WBC 16.3 H RBC 4.06 L Hgb 12.0 L Hct 36.1 L MCV 88.7 MCH 29.6 MCHC 33.3 RDW 14.0 Plt Count 245 MPV 7.4 Neut % (Auto) 88.7 H Lymph % (Auto) 8.4 L [place] % (Auto) 2.9 Eos % (Auto) 0.0 L Baso % (Auto) 0.0 L Neut # (Auto) 14.4 H Lymph # (Auto) 1.4 [place] # (Auto) 0.5 Eos # (Auto) 0.0 Baso # (Auto) 0.0 Total Counted 100 Neutrophils % (Manual) 86 H Lymphocytes % (Manual) 13 Monocytes % (Manual) 1 L Platelet Estimate Normal RBC Morphology Normal Sodium 137 Potassium 4.0 Chloride 107 Carbon Dioxide 26 Anion Gap 8.0 BUN 22 H Creatinine 1.00 Estimated Creat Clear 59 Estimated GFR 74 Est GFR ( Amer) 90 Glucose 140 H D Calcium 8.4 Preliminary micro results at discharge 03/18/20 07:58 Blood Culture - Preliminary Blood NO GROWTH AFTER 48 HOURS 03/18/20 07:58 Blood Culture - Preliminary Blood NO GROWTH AFTER 48 HOURS DS: Diagnosis - Discharge Diagnosis (1) Acute exacerbation of chronic obstructive airways disease Status: Acute (2) CAP (community acquired pneumonia) Status: Acute (3) Renal insufficiency Status: Resolved (4) COPD (chronic obstructive pulmonary disease) Status: Acute (5) HTN (hypertension) Status: Acute Discharge Plan - Patient Discharge Instructions ACTIVITY: Continue current activity, Ambulate as tolerated DIET: continue same diet - Follow up Plan Follow up with: Ana Rollins MD [Physician] - 05/04/20 10:30 am John Vance MD [Emergency Provider] - 1 week Disposition: Home, Self-Residential Medications: Home Medications Medication Instructions Recorded Confirmed Type Albuterol Sulfate [Proventil Hfa] 1 puff IH Q6HP PRN 03/18/20 03/19/20 History Budesonide/Formoterol Fumarate 1 puff IH BID 03/18/20 03/19/20 History [Symbicort] Oxycodone HCl 10 mg PO TID 03/18/20 03/18/20 History Lidocaine [Lidoderm 5% transdermal 1 each TD DAILY 03/19/20 03/19/20 History patch] Meloxicam [Mobic 7.5mg Tab] 7.5 mg PO BID 03/19/20 03/19/20 History levoFLOXacin [Levaquin 500mg 500 mg PO DAILY #7 tab 03/20/20 Rx tab] predniSONE [Prednisone
--- NOTE | 2020-03-20 13:34 | PC.NURSE ---
THIS RN PROVIDED D/C TEACHING IN REGARDS TO COPD BREATHING, DIET AND WHEN TO CALL THE MD. THIS RN NOTIFIED PATIENT THAT HE WILL HAVE AN OUTPATIENT PFT. PATIENT AND DAUGHTER VERBALIZED AN UNDERSTANDING. THIS RN WALKED INTO ROOM AND PATIENT ALONG WITH HIS DAUGHTER WERE VAPING. THIS RN EXPLAINED THAT WE DO NOT ALLOW SMOKING IN THE FACILITY. PATIENT AND DAUGHTER VERBALIZED AN UNDERSTANDING.
== END 2020-03-20 13:32 | disposition home or self-care (01) ==
LOC: ER 09:54 → 2ND 11:05
PROVIDERS: Nurse Practitioner Family; Admitting Provider Emergency Medicine; Emergency Provider Emergency Medicine; Visit Provider Emergency Medicine
DX: J44.1 Chronic obstructive pulmonary disease with (acute) exacerbation (principal); J18.9 Pneumonia, unspecified organism; I10 Essential (primary) hypertension; Z95.0 Presence of cardiac pacemaker; Z72.0 Tobacco use; N28.9 Disorder of kidney and ureter, unspecified; Z88.8 Allergy status to other drugs, medicaments and biological substances; Z88.5 Allergy status to narcotic agent; Z79.51 Long term (current) use of inhaled steroids; Z79.899 Other long term (current) drug therapy
CPT/HCPCS: 36415; 71045; 80048; 80053; 82803; 83605; 83735; 84484; 85007; 85025; 87040; 87070; 87205; 87581; 87633; 87798; 93005; 93306; 94640; 96365; 96366; 96375; 99284; G0378; J0456

== ENCOUNTER → 2020-04-27 16:43 | Outpatient (CLI) | payer MEDICARE, MEDICAID, SELFPAY ==
--- NOTE | 2020-04-27 16:48 | XR_ITS ---
PROCEDURE: XR CHEST 2V CLINICAL HISTORY: shortness of breath Shortness of air, COPD COMPARISON: CR CXR CHEST(2 VIEWS-NOT PORTABLE) from 02/21/2016 CR CXR2V XR chest 2V from 02/26/2017 CR XR CHEST PORTABLE from 03/18/2020 FINDINGS: The cardiomediastinal silhouette and pulmonary vascularity are within normal limits. COPD changes. No lobar consolidation or collapse. There is some faint increased density in the anterior clear space not readily apparent previously and may be related to a faint area of infiltrate or atelectatic/fibrotic change. Postsurgical changes lower cervical spine. IMPRESSION: COPD. Faint increased density in the anterior clear space suggesting an area of atelectasis or infiltrate or fibrotic change Dictated by: Stewart Nguyen MD 04/27/2020 18:18 Stewart Nguyen MD in [place] 04/27/2020 18:18
[2020-04-27 17:38] LABS: Basophils # 0.1 K/mm3 (0-0.2); Basophils % 0.9 % (0.1-2.0); Eosinophils # 0.2 K/mm3 (0.0-0.4); Eosinophils % 3.1 % (0.1-12.0); Hematocrit 40.4 % (42.0-52.0); Hemoglobin 13.6 g/dL (14.1-18.0); Lymphocytes # 2.1 K/mm3 (0.7-4.5); Mean Corpuscular HGB Conc 33.6 g/dL (31.8-35.4); Mean Corpuscular Hemoglobin 29.6 pg (27.0-31.2); Mean Platelet Volume 7.1 fl (7.4-10.4); Monocytes # 0.3 K/mm3 (0.1-1.0); Monocytes % 4.9 % (1.7-9.3); Neutrophils % 60.2 % (37.0-80.0); Platelet Count 322 K/mm3 (142-424); Red Blood Count 4.59 M/mm3 (4.60-6.20); Red Cell Distribution Width 13.9 % (11.5-17.5); White Blood Count 6.7 K/mm3 (4.8-10.8)
[2020-04-27 18:23] LABS: Alanine Aminotransferase 10 U/L (12-78); Albumin Level 3.9 g/dl (3.5-5.0); Albumin/Globulin Ratio 1.6 (1.1-1.8); Alkaline Phosphatase 81 U/L (38-126); Anion Gap 8.6 mEq/L (5-15); Aspartate Amino Transferase 21 U/L (17-59); Bilirubin,Total 0.2 mg/dl (0.2-1.3); Blood Urea Nitrogen 19 mg/dl (9-20); Calcium 9.2 mg/dl (8.4-10.2); Carbon Dioxide 32 mmol/L (22.0-30.0); Chloride 101 mmol/L (98-107); Chol/HDL Ratio 6.3 (1-3.5); Cholesterol 246 mg/dl (140-200); Estimated Glomerular Filt Rate 66 ml/min (>60); GFR (African American) 80 ML/MIN (>60); Globulin 2.5 g/dL (1.3-3.2); Glucose 111 mg/dl (74-100); HDL Cholesterol 39 mg/dl (40-60); Potassium 4.6 mmoL/L (3.5-5.1); Sodium 137 mmol/L (136-145); Total Protein,Serum 6.4 g/dl (6.3-8.2); Triglycerides 366 mg/dl (30-150); VLDL Cholesterol 73 mg/dL (0-40)
[2020-04-27 18:26] LABS: Erythrocyte Sedimentation Rate 58 mm/hr (0-20)
[2020-04-27 18:34] LABS: NT Pro Brain Natriuretic Pep. 281 pg/mL (0-125)
[2020-04-27 18:35] LABS: Direct LDL Cholesterol 142.56 mg/dL (100-129)
[2020-04-27 18:42] LABS: Free T4 (Free Thyroxine) 1.04 ng/dl (0.78-2.19)
[2020-04-27 18:55] LABS: Thyroid Stimulating Hormone 1.29 uIU/mL (0.465-4.68)
== END ==
PROVIDERS: PCP Emergency Medicine; Visit Provider Emergency Medicine
DX: J44.1 Chronic obstructive pulmonary disease with (acute) exacerbation (principal); J44.9 Chronic obstructive pulmonary disease, unspecified; N28.9 Disorder of kidney and ureter, unspecified; I10 Essential (primary) hypertension; R06.02 Shortness of breath
CPT/HCPCS: 36415; 71046; 80053; 80061; 83880; 84439; 84443; 85025; 85651

== ENCOUNTER 2020-05-09 19:34 | Emergency (ER) | payer MEDICARE, MEDICAID, SELFPAY ==
[2020-05-09 19:36] VITALS: BP 168/95; PULSE 62; RESP 16; TEMP 36.5; O2SAT 95
--- NOTE | 2020-05-09 19:50 | CT_ITS ---
PROCEDURE: CT ABDOMEN PELVIS W CON CLINICAL INDICATION: abd pain Abdominal pain and vomiting COMPARISON: No exams were available for comparison TECHNIQUE: IV Contrast: 75ML Isovue 370 Oral Contrast None Axial images obtained with sagittal and coronal reformats. All CT scans at the facility use one or more dose reduction, viz: automated exposure control, ma/kV adjustment per patient size (including targeted exams where dose is matched to indication, i.e. head), or iterative reconstruction technique. FINDINGS: LOWER THORAX: Mild dependent changes in the lung bases. ABDOMEN & PELVIS: There are several hypoattenuating hepatic lesions the largest in the right hepatic lobe anterior segment measuring 12 mm. These are nonspecific possibly due to hepatic cysts. The spleen, gallbladder, adrenal glands, and pancreas have an unremarkable appearance. There is some fullness of the renal collecting systems left greater than right. No obvious renal or ureteral calculi. No intestinal obstruction or free air. No evidence of appendicitis. There is a mild amount of retained colonic feces. No evidence of diverticulitis. Prostate is slightly enlarged at 5 cm with coarse central calcifications. No pelvic mass. There is mild fusiform dilatation of the infrarenal abdominal aorta measuring up to 2.7 cm with soft and calcific plaque there are mild degenerative changes in the lumbar spine. Postsurgical changes are present involving the anterior abdominal wall. IMPRESSION: 1. No acute finding. 2. Mild fusiform dilatation of the abdominal aorta at 2.7 cm with soft and calcific plaque 3. Multiple hepatic hypodensities which are nonspecific. Dictated by: Stewart Nguyen MD 05/10/2020 06:29 Stewart Nguyen MD in [facility] 05/10/2020 06:29
[2020-05-09 20:09] LABS: Basophils # 0.1 K/mm3 (0-0.2); Basophils % 0.6 % (0.1-2.0); Eosinophils # 0.3 K/mm3 (0.0-0.4); Eosinophils % 3.3 % (0.1-12.0); Hematocrit 41.7 % (42.0-52.0); Hemoglobin 13.5 g/dL (14.1-18.0); Lymphocytes # 2.3 K/mm3 (0.7-4.5); Lymphocytes % 28.2 % (10-50); Mean Corpuscular HGB Conc 32.4 g/dL (31.8-35.4); Mean Corpuscular Hemoglobin 29.1 pg (27.0-31.2); Mean Corpuscular Volume 89.8 fl (80-94); Monocytes # 0.6 K/mm3 (0.1-1.0); Monocytes % 7.1 % (1.7-9.3); Neutrophils # 4.8 K/mm3 (1.8-7.8); Neutrophils % 60.8 % (37.0-80.0); Platelet Count 247 K/mm3 (142-424); Red Blood Count 4.64 M/mm3 (4.60-6.20)
[2020-05-09 20:19] LABS: Alanine Aminotransferase 18 U/L (12-78); Albumin Level 4.2 g/dl (3.5-5.0); Albumin/Globulin Ratio 1.4 (1.1-1.8); Alkaline Phosphatase 68 U/L (38-126); Amylase 121 U/L (30-110); Anion Gap 7.9 mEq/L (5-15); Aspartate Amino Transferase 29 U/L (17-59); Bilirubin,Total 0.4 mg/dl (0.2-1.3); Blood Urea Nitrogen 21 mg/dl (9-20); Calcium 10.3 mg/dl (8.4-10.2); Carbon Dioxide 34 mmol/L (22.0-30.0); Chloride 94 mmol/L (98-107); Creatinine Clearance Estimated 45 mL/min (50-200); Estimated Glomerular Filt Rate 60 ml/min (>60); GFR (African American) 73 ML/MIN (>60); Globulin 2.9 g/dL (1.3-3.2); Glucose 104 mg/dl (74-100); Lipase 50 U/L (23-300); Potassium 3.9 mmoL/L (3.5-5.1); Sodium 132 mmol/L (136-145); Total Protein,Serum 7.1 g/dl (6.3-8.2)
[2020-05-09 20:24] LABS: C-Reactive Protein 7.5 mg/L (0-4)
[2020-05-09 20:36] LABS: Erythrocyte Sedimentation Rate 28 mm/hr (0-20)
[2020-05-09 20:38] LABS: Procalcitonin 0.057 ng/mL (0.0-2.0)
--- NOTE | 2020-05-09 21:21 | HMH.EDNVD ---
ED Disposition Clinical Impression: AAA (abdominal aortic aneurysm) without rupture Abdominal pain Qualifiers: Abdominal location: periumbilical Qualified Code(s): R10.33 - Periumbilical pain Disposition: Home, Self-Care Condition on Discharge: Good Instructions: DI for Acute Abdominal Pain Additional Instructions: see pcp for follow up Referrals: John Vance MD [Primary Care Provider] - - Critical Care Critical Care Time: No Attestation: On 05/09/20, the high probability of a clinically significant, sudden or life threatening deterioration of the following system(s) required my full and direct attention, intervention and personal management. The time I documented below is in addition to time spent performing reported procedures but includes the following listed in this critical care notation. Medical Decision Making - Medical Records Medical records reviewed: Yes: I reviewed the patient's medical records. - [place] Inquiry Pt receiving controlled substance: No Vital Signs: 05/09/20 19:36 Temperature 97.7 F Temperature Source Oral Pulse Rate [Right] 62 Respiratory Rate 16 Blood Pressure [Right Arm] 168/95 H Blood Pressure Mean [Right Arm] 119 02 Sat by Pulse Oximetry 95 - Lab Data Lab results reviewed: Yes: I reviewed the patient's lab results. Lab Results 05/09/20 20:03: WBC 8.0, RBC 4.64, Hgb 13.5 L, Hct 41.7 L, MCV 89.8, MCH 29.1, MCHC 32.4, RDW 14.0, Plt Count 247, MPV 7.0 L, Neut % (Auto) 60.8, Lymph % (Auto) 28.2, [place] % (Auto) 7.1, Eos % (Auto) 3.3, Baso % (Auto) 0.6, Neut # (Auto) 4.8, Lymph # (Auto) 2.3, [place] # (Auto) 0.6, Eos # (Auto) 0.3, Baso # (Auto) 0.1, ESR 28 H 05/09/20 20:03: Sodium 132 L, Potassium 3.9, Chloride 94 L, Carbon Dioxide 34 H, Anion Gap 7.9, BUN 21 H, Creatinine 1.20, Estimated Creat Clear 45, Estimated GFR 60, Est GFR ( Amer) 73, Glucose 104 H, Calcium 10.3 H, Total Bilirubin 0.4, AST 29, ALT 18, Alkaline Phosphatase 68, C-Reactive Protein 7.5 H, Total Protein 7.1, Albumin 4.2, Globulin 2.9, Albumin/Globulin Ratio 1.4, Amylase 121 H, Lipase 50, Procalcitonin 0.057 05/09/20 22:16: Urine Color Yellow, Urine Appearance Clear, Urine pH 6.5, Ur Specific [place] <= 1.005, Urine Protein Negative, Urine Glucose (UA) Negative, Urine Ketones Negative, Urine Blood Trace-i, Urine Nitrate Negative, Urine Bilirubin Negative, Urine Urobilinogen 0.2, Ur Leukocyte Esterase Negative Result diagrams: 05/09/20 20:03 05/09/20 20:03 Orders (Tests/Meds): ED MEDICATIONS Generic Name Dose Route Start Last Admin Trade Name Freq PRN Reason Stop Dose Admin Sodium Chloride 1,000 mls @ 999 mls/hr 05/09/20 20:00 05/09/20 20:09 Sod Chlor 0.9% 1000ml Bag IV 05/09/20 21:00 999 mls/hr .Q1H1M GERALDO Administration Sodium Chloride 8 ml 05/09/20 19:51 Sodium Chloride 0.9% 10ml Vial IV 06/08/20 19:50 NEEDED PRN dilute pepcid Discontinued Medications Generic Name Dose Route Start Last Admin Trade Name Freq PRN Reason Stop Dose Admin Famotidine 20 mg 05/09/20 19:51 05/09/20 20:09 Famotidine 20mg/2ml Vial IV 05/09/20 19:52 20 mg ONCE ONE Administration Iopamidol 75 ml 05/09/20 21:21 05/09/20 21:21 Iopamidol-370 (76%);100ml Bottle IV 05/09/20 21:22 75 ml ONCE ONE Administration Ketorolac Tromethamine 30 mg 05/09/20 19:51 05/09/20 20:09 Ketorolac 30mg/Ml Vial IV 05/09/20 19:52 30 mg ONCE ONE Administration Metoclopramide HCl 10 mg 05/09/20 19:51 05/09/20 20:09 Metoclopramide Hcl 10mg/2ml Vial IVP 05/09/20 19:52 10 mg ONCE ONE Administration Ondansetron HCl 4 mg 05/09/20 19:51 04/04/21 20:09 Ondansetron 4mg/2ml Vial IV 05/09/20 19:52 4 mg ONCE ONE Administration Sodium Chloride 10 ml 05/09/20 21:21 05/09/20 21:21 Sodium Chloride 0.9% 10ml Syr (Rad Only) IV 05/09/20 21:22 10 ml ONCE ONE Administration ORDERS Category Date Time Status CT abdomen pelvis w con Stat Cat Scan
[2020-05-09 22:23] LABS: Microscopic, Urine URINE MICROSCOPIC (MICROSCOPIC)
[2020-05-09 22:39] LABS: Appearance,Urine CLEAR (Clear); Bilirubin,Urine Negative (Negative); Blood, Urine TRACE-I (Negative); Color,Urine YELLOW (Yellow); Glucose,Urine (UA) Negative (Negative); Ketones,Urine Negative (Negative); Leukocyte Esterase,Urine Negative (Negative); Nitrate,Urine Negative (Negative); PH,Urine 6.5 (5.0-8.5); Protein,Urine Negative (Negative); Specific Gravity, Urine <= 1.005 (1.005-1.030); Urobilinogen,Urine 0.2 EU/dl (0.2)
[2020-05-09 22:41] LABS: Amorphous Sediment,Urine Trace /lpf; RBC,Urine Occasional #/hpf (0-3)
[2020-05-09 22:45] VITALS: BP 154/74; PULSE 60; RESP 16; TEMP 36.5; O2SAT 97
== END 2020-05-09 22:47 | disposition home or self-care (01) ==
PROVIDERS: Emergency Provider Emergency Medicine; PCP Emergency Medicine
DX: I71.4 Abdominal aortic aneurysm, without rupture (principal); R10.33 Periumbilical pain; J44.9 Chronic obstructive pulmonary disease, unspecified; I10 Essential (primary) hypertension; Z95.0 Presence of cardiac pacemaker; F17.210 Nicotine dependence, cigarettes, uncomplicated; Z79.899 Other long term (current) drug therapy
CPT/HCPCS: 74177; 80053; 81001; 82150; 83690; 84145; 85025; 85651; 86140; 96375; 99282; J2405; Q9967

== ENCOUNTER → 2020-05-31 15:17 | Outpatient (CLI) | payer MEDICARE, OTHER, SELFPAY ==
--- NOTE | 2020-05-31 15:25 | CT_ITS ---
PROCEDURE: CT LUNG SCREENING CLINICAL INDICATION: lung cancer screening Current smoker 75 pack year smoking history COMPARISON: CT CT ABDOMEN PELVIS W CON from 05/09/2020 TECHNIQUE: The exam was performed on a GE Light Speed [address] scanner using 2.90 mGy CTDI. A low dose helical CT CHEST was performed on a multi-detector scanner. All CT scans at the facility use one or more dose reduction, viz: automated exposure control, ma/kV adjustment per patient size (including targeted exams where dose is matched to indication, i.e. head), or iterative reconstruction technique. The LDCT was performed in a facility that meets the criteria for the screening program. Data regarding this exam was submitted to ACR which is an approved registry. The order for this exam indicates that it came as a result of a lung cancer screening counseling shard decision-making visit that included all the elements required of such a visit including smoking cessation. The radiologist interpreting this exam meets the CMS criteria for the LDCT lung cancer screening program. The exam is reported using the Lung-RADS classification scale and reported to the ACR registry. NOTE: This study was performed for the specific purposes of lung cancer screening and is not an alternative to diagnostic chest CT. RADIATION DOSE: CTDI vol(CT dose Index-volume) = 2.90mG DLP (Dose Length Product) = 113.59 mGcm FINDINGS: COPD with old granulomatous disease and scattered areas of scarring. There are scattered noncalcified pulmonary nodules in the right upper lobe and right lower lobe. The largest noncalcified nodule in the right upper lobe measures approximately 11 mm and contains a small central lucent focus. 6 mm nodules present along the right major fissure. An 8 mm nodule is present in the right lower lobe superior segment. In the right lower lobe medially there is a 14 x 5 mm nodule. This nodule is well-circumscribed and is in the as ago esophageal recess. No suspicious nodules evident on the left. There is mild diffuse bronchial thickening. OTHER FINDINGS: Tortuosity and ectasia noted of the thoracic aorta with the aorta measuring up to 4 cm. Coronary artery calcifications are present. Hypodense hepatic lesions once again noted as described in the CT abdomen report of 05/09/2020. There may be some sludge in the gallbladder. Bony exostosis is present between the left 1st and 2nd rib with suspected old left 1st rib fracture. Degenerative changes of the right shoulder. IMPRESSION: Lung-RADS Category 4A Suspicious Follow-up: There are multiple noncalcified nodules of the right upper and right lower lobe. These may be neoplastic or inflammatory/infectious. Suggest comparison with old exam if available. If no old exams are available then PET CT may provide further evaluation. Dictated by: Stewart Nguyen MD 06/04/2020 12:48 Stewart Nguyen MD in [place] 06/04/2020 12:48
== END ==
PROVIDERS: PCP Emergency Medicine; Visit Provider Emergency Medicine
DX: Z87.891 Personal history of nicotine dependence (principal); Z12.2 Encounter for screening for malignant neoplasm of respiratory organs
CPT/HCPCS: 71271

== ENCOUNTER 2020-09-20 17:42 | Emergency (ER) | payer MEDICARE, OTHER, SELFPAY ==
--- NOTE | 2020-09-20 18:40 | PC.NURSE ---
Went to lobby to talk to pt after confirming with registration that pt was waiting for an ER room, pt not present in the lobby at this time. Bystander states that pt walked out about 10 minutes ago from the lobby. Registration notified if pt was to return to inform ER
[2020-09-20 19:10] VITALS: BP 0/0; PULSE 0; RESP 0; TEMP -17.7; TEMP 0
== END 2020-09-20 21:39 | disposition left against medical advice (07) ==
LOC: ER 21:34
PROVIDERS: Emergency Provider Emergency Medicine; PCP Emergency Medicine
DX: Z53.21 Procedure and treatment not carried out due to patient leaving prior to being seen by health care provider (principal)
CPT/HCPCS: G0463; 99211

== ENCOUNTER 2020-10-29 20:08 | Emergency (ER) | payer MEDICARE, OTHER, SELFPAY ==
[2020-10-29 20:26] VITALS: BP 146/92; PULSE 85; RESP 18; O2SAT 97; BMI 21.8
[2020-10-29 20:50] VITALS: BP 149/86; PULSE 84; RESP 18; TEMP 37.4; O2SAT 100; BMI 23.0
--- NOTE | 2020-10-29 21:32 | HMH.EDUTC ---
[facility] [place] Disposition Clinical Impression: Low back pain Qualifiers: Chronicity: unspecified Back pain laterality: bilateral Sciatica presence: with sciatica Sciatica laterality: sciatica of left side Qualified Code(s): M54.42 - Lumbago with sciatica, left side Disposition: Home, Self-Care Condition on Discharge: Good Instructions: Low Back Pain, DI for Low Back Pain Additional Instructions: Go home and rest. It would be best if you rested tomorrow too. No heavy lifting. No twisting. Take the oral medications as directed. The muscle relaxer (cyclobenzaprine--Flexeril) will make you drowsy, so don't drive or operate heavy machinery after taking it. Don't start the oral steroids (medrol dose pack) until tomorrow, since you had the shots in here today. Follow up with your regular doctor. GO TO THE ER FOR ANY WORSENING SYMPTOMS OR CONCERN, ESPECIALLY BOWEL OR BLADDER ISSUES, SADDLE AREA NUMBNESS, FEVER, ETC Prescriptions: Cyclobenzaprine HCl [Cyclobenzaprine 10mg Tab] 10 mg PO BIDP PRN #20 tab PRN Reason: Muscle Spasm Transmission Status: Received by [facility] methylPREDNISolone [Medrol] 4 mg PO DIRECTED 6 Days #21 packet Transmission Status: Received by [facility] Referrals: John Vance MD [Primary Care Provider] - Time of Disposition: 21:45 Medical Decision Making - Medical Records Medical records reviewed: No: I reviewed the patient's medical records. - [place] Inquiry Pt receiving controlled substance: No Vital Signs: 10/29/20 20:26 10/29/20 20:50 10/29/20 21:50 Temperature 99.4 F 99.4 F Temperature Source Oral Pulse Rate 84 Pulse Rate [Right Brachial] 85 84 Respiratory Rate 18 18 18 Blood Pressure 149/86 H Blood Pressure [Right Arm] 146/92 H 149/86 H Blood Pressure Mean [Right Arm] 110 107 Blood Pressure Source [Right Arm] Automatic Cuff Automatic Cuff Blood Pressure Position [Right Arm] Sitting Sitting 02 Sat by Pulse Oximetry 97 100 Oxygen Delivery Method Room Air Room Air Orders (Tests/Meds): ED MEDICATIONS Discontinued Medications Generic Name Dose Route Start Last Admin Trade Name Freq PRN Reason Stop Dose Admin Ketorolac Tromethamine 30 mg 10/29/20 21:37 10/29/20 21:40 Ketorolac 60mg/2ml Vial IM 10/29/20 21:38 30 mg ONCE ONE Administration Methylprednisolone Sodium Succinate 125 mg 10/29/20 21:37 10/29/20 21:40 Methylprednisolone Sod Succ 125mg Vial IM 10/29/20 21:38 125 mg ONCE ONE Administration [facility] [place] HPI - General Stated complaint: PAIN BACK VOMITING Time Seen by Provider: 10/29/20 21:32 Mode of Arrival: Ambulatory Source of Information: Patient Limitations: No Limitations Description of Symptoms (Recalled from Triage Doc. by RN): PATIENT C/O BACK/NECK PAIN AND NAUSEA HEENT Symptoms (Recalled from RN notes): No Resp Symptoms (Recalled from RN notes): No Skin Symptoms (Recalled from RN notes): No MS Symptoms (Recalled from RN notes): Yes Functional Status (Recalled from RN notes): WNL - History of Present Illness Provider Complaint: He states that for the past 2 days he has had low back pain. He has episodes like this at times. He denies any injury. He denies any chest pain. - Related Data Home Medications Medication Instructions Recorded Confirmed Buprenorphine HCl/Naloxone HCl 2 tab SL DAILY 10/29/20 10/29/20 [Buprenorphine-Nalox 8-2 mg Tab] Previous Rx's Medication Instructions Recorded Cyclobenzaprine HCl 10 mg PO BIDP PRN #20 tab 10/29/20 [Cyclobenzaprine 10mg Tab] methylPREDNISolone [Medrol] 4 mg PO DIRECTED 6 Days #21 10/29/20 packet Allergies Allergy/AdvReac Type Severity Reaction Status Date / Time acetaminophen Allergy Verified 09/21/20 13:12 [From Tylenol-Codeine #3] codeine Allergy Verified 09/21/20 13:12 [From Tylenol-Codeine #3] gabapentin Allergy Verified 09/21/20 13:12 - Worker's Comp Is this a Worker's
[2020-10-29 21:50] VITALS: BP 149/86; PULSE 84; RESP 18; TEMP 37.4; O2SAT 100
== END 2020-10-29 21:54 | disposition home or self-care (01) ==
PROVIDERS: Emergency Provider Nurse Practitioner Family; PCP Emergency Medicine
DX: M54.42 Lumbago with sciatica, left side (principal); J44.9 Chronic obstructive pulmonary disease, unspecified; I25.10 Atherosclerotic heart disease of native coronary artery without angina pectoris; I10 Essential (primary) hypertension; F17.210 Nicotine dependence, cigarettes, uncomplicated
CPT/HCPCS: G0463; 96372; 99202

== ENCOUNTER 2020-11-09 15:57 | Emergency (ER) | payer MEDICARE, OTHER, SELFPAY ==
[2020-11-09 15:59] VITALS: BP 129/87; PULSE 99; RESP 18; TEMP 36.8; O2SAT 97; BMI 20.9
[2020-11-09 16:12] VITALS: BMI 19.8
[2020-11-09 16:22] LABS: Influenza A, PCR Not Detected (NotDetected); Influenza B, PCR Not Detected (NotDetected)
[2020-11-09 16:27] LABS: Chloride 100 mmol/L (98-107)
[2020-11-09 16:28] LABS: Potassium 4.3 mmoL/L (3.5-5.1); Sodium 137 mmol/L (136-145)
[2020-11-09 16:30] LABS: Alanine Aminotransferase 26 U/L (12-78); Alkaline Phosphatase 70 U/L (38-126); Anion Gap 9.3 mEq/L (5-15); Aspartate Amino Transferase 38 U/L (17-59); Basophils % 0.6 % (0.1-2.0); Bilirubin,Total 0.5 mg/dl (0.2-1.3); Blood Urea Nitrogen 24 mg/dl (9-20); Carbon Dioxide 32 mmol/L (22.0-30.0); Creatinine Clearance Estimated 58 mL/min (50-200); Eosinophils % 0.3 % (0.1-12.0); Estimated Glomerular Filt Rate 84 ml/min (>60); GFR (African American) 101 ML/MIN (>60); Hematocrit 47.2 % (42.0-52.0); Hemoglobin 15.6 g/dL (14.1-18.0); Lymphocytes # 1.7 K/mm3 (0.7-4.5); Mean Corpuscular HGB Conc 33.1 g/dL (31.8-35.4); Mean Corpuscular Hemoglobin 29.6 pg (27.0-31.2); Mean Corpuscular Volume 89.5 fl (80-94); Mean Platelet Volume 7.9 fl (7.4-10.4); Monocytes # 0.2 K/mm3 (0.1-1.0); Neutrophils # 4.8 K/mm3 (1.8-7.8); Neutrophils % 71.2 % (37.0-80.0); Platelet Count 264 K/mm3 (142-424); Red Blood Count 5.27 M/mm3 (4.60-6.20); Red Cell Distribution Width 13.8 % (11.5-17.5); White Blood Count 6.8 K/mm3 (4.8-10.8)
[2020-11-09 16:31] LABS: Albumin Level 3.8 g/dl (3.5-5.0); Albumin/Globulin Ratio 1.2 (1.1-1.8); Calcium 9.1 mg/dl (8.4-10.2); Globulin 3.2 g/dL (1.3-3.2); Glucose 155 mg/dl (74-100)
[2020-11-09 16:53] LABS: Coronavirus 19, PCR Detected (NotDetected)
--- NOTE | 2020-11-09 17:15 | HMH.EDGENADL ---
ED Disposition Clinical Impression: COVID-19 Disposition: Home, Self-Care Condition on Discharge: Good Instructions: Coronavirus Disease 2019 Additional Instructions: Return to emergency department chest pain, shortness of breath, nausea with vomiting and inability to stay well-hydrated. Referrals: John Vance MD [Primary Care Provider] - 3 days Time of Disposition: 17:18 - Critical Care Critical Care Time: No Attestation: On 11/09/20, the high probability of a clinically significant, sudden or life threatening deterioration of the following system(s) required my full and direct attention, intervention and personal management. The time I documented below is in addition to time spent performing reported procedures but includes the following listed in this critical care notation. Medical Decision Making - Medical Records Medical records reviewed: Yes: I reviewed the patient's medical records. - [place] Inquiry Pt receiving controlled substance: No Vital Signs: 11/09/20 15:59 Temperature 98.2 F Temperature Source Oral Pulse Rate [Right Radial] 99 H Respiratory Rate 18 Blood Pressure [Right Arm] 129/87 Blood Pressure Mean [Right Arm] 101 Blood Pressure Source [Right Arm] Automatic Cuff Blood Pressure Position [Right Arm] Sitting 02 Sat by Pulse Oximetry 97 Oxygen Delivery Method Room Air - Lab Data Lab results reviewed: Yes: I reviewed the patient's lab results. Lab Results 11/09/20 16:10: WBC 6.8, RBC 5.27, Hgb 15.6, Hct 47.2, MCV 89.5, MCH 29.6, MCHC 33.1, RDW 13.8, Plt Count 264, MPV 7.9, Neut % (Auto) 71.2, Lymph % (Auto) 25.0, [place] % (Auto) 3.0, Eos % (Auto) 0.3, Baso % (Auto) 0.6, Neut # (Auto) 4.8, Lymph # (Auto) 1.7, [place] # (Auto) 0.2, Eos # (Auto) 0.0, Baso # (Auto) 0.0 11/09/20 16:10: Sodium 137, Potassium 4.3, Chloride 100, Carbon Dioxide 32 H, Anion Gap 9.3, BUN 24 H, Creatinine 0.90, Estimated Creat Clear 58, Estimated GFR 84, Est GFR ( Amer) 101, Glucose 155 H, Calcium 9.1, Total Bilirubin 0.5, AST 38, ALT 26, Alkaline Phosphatase 70, Total Protein 7.0, Albumin 3.8, Globulin 3.2, Albumin/Globulin Ratio 1.2 11/09/20 16:12: SARS-CoV-2 (PCR) Detected A, Influenza A Untype (PCR) Not detected, Influenza Type B (PCR) Not detected Result diagrams: 11/09/20 16:10 11/09/20 16:10 Medical Decision Narrative: 70yo M positive for Covid. Vital signs are stable with O2 sat greater than 97% on room air. Patient appropriate stable for discharge home. Will have nursing staff arrange monoclonal antibody infusion as soon as possible. General Adult HPI - General Chief complaint: Weakness Stated complaint: weakness, runny nose, headache Time Seen by Provider: 11/09/20 17:15 Mode of Arrival: Ambulatory Limitations: No Limitations Description of Symptoms (Recalled from ER Triage Doc. by RN): pt reports i feel like i have the flu . Pt states for 4 days has been having body aches, chills, sweats, no appetite. Pt denies cough or SOA - History of Present Illness HPI narrative: 70yo M presents the emergency department secondary to general malaise, runny nose, mild cough. Patient reports he is on day three of illness. States he does not smoke. Patient has a history significant for coronary artery disease with stents. Patient did not receive Covid immunizations. He denies nausea or vomiting. Denies diarrhea. Reports he can still smell and taste. - Related Data Home Medications Medication Instructions Recorded Confirmed Buprenorphine HCl/Naloxone HCl 2 tab SL DAILY 10/29/20 11/09/20 [Buprenorphine-Nalox 8-2 mg Tab] Previous Rx's Medication Instructions Recorded Cyclobenzaprine HCl 10 mg PO BIDP PRN #20 tab 10/29/20 [Cyclobenzaprine 10mg Tab] methylPREDNISolone [Medrol] 4 mg PO DIRECTED 6 Days #21 10/29/20 packet Allergies Allergy/AdvReac Type Severity Reaction Status Date / Time acetaminophen Allergy Verified 09/21/20 13:12 [From Tylenol-Codeine #3] c
[2020-11-09 17:46] VITALS: BP 130/95; PULSE 100; RESP 18; TEMP 37; O2SAT 98
== END 2020-11-09 17:46 | disposition home or self-care (01) ==
PROVIDERS: Emergency Provider Family Medicine; PCP Emergency Medicine
DX: U07.1 COVID-19 (principal); J44.9 Chronic obstructive pulmonary disease, unspecified; I25.10 Atherosclerotic heart disease of native coronary artery without angina pectoris; I10 Essential (primary) hypertension; Z95.0 Presence of cardiac pacemaker; F17.210 Nicotine dependence, cigarettes, uncomplicated
CPT/HCPCS: 80053; 85025; 99283; C9803; U0003; U0005

== ENCOUNTER → 2020-11-12 09:04 | Outpatient (CLI) | payer MEDICARE, OTHER, SELFPAY ==
[2020-11-12] VITALS (7 sets, daily range): BP systolic 140–170; BP diastolic 89–99; PULSE 58–63; RESP 20; TEMP 36.7–36.8; O2SAT 100
== END ==
PROVIDERS: PCP Emergency Medicine; Visit Provider Emergency Medicine
DX: U07.1 COVID-19 (principal)
CPT/HCPCS: 96365

== ENCOUNTER → 2021-05-10 08:51 | Outpatient (CLI) | payer MEDICARE, MEDICAID, SELFPAY ==
--- NOTE | 2021-05-10 08:56 | CT_ITS ---
FINAL REPORT CLINICAL HISTORY: abnormal ct lung screen 05/2020 COMPARISON: May 31, 2020 FINDINGS: Before and after the administration of intravenous contrast, axial images through the chest were performed by computed tomography. This study was performed with techniques to keep radiation doses as low as reasonably achievable, (ALARA). Individualized dose reduction techniques using automated exposure control or adjustment of mA and/or kV according to the patient's size were employed. There is no axillary adenopathy. There is no hilar or mediastinal adenopathy. There is ectasia of the ascending aorta, stable from prior. The heart size is normal. There is no pericardial or pleural effusion. Limited images of the upper abdomen are unremarkable. There are mild changes of emphysema with mild scarring. There are several calcified granulomas. There are multiple nodules. There is a 10 mm nodule in the posterior right upper lobe on image 30, stable from prior. Inferolateral to this is a 6 mm nodule that is stable as well. In the superior segment of the right lower lobe is a 14 mm nodule, previously measured 14 mm. There are other small visually stable nodules. There is no new mass or pulmonary nodule. IMPRESSION: Multiple stable nodules as described. Consider distal follow-up in 12 months. No new mass or nodule. Reviewed, Interpreted and Dictated by Enmanuel Carlos III, MD Transcribed by Demarcus Ontiveros Authenticated by Enmanuel Carlos III, MD on 05/10/2021 02:05:[address] [facility]
[2021-05-10 09:45] LABS: Blood Urea Nitrogen 22 mg/dl (9-20); Estimated Glomerular Filt Rate 60 ml/min (>60); GFR (African American) 72 ML/MIN (>60)
== END ==
PROVIDERS: PCP Physician Assistant; Visit Provider Physician Assistant
DX: R91.8 Other nonspecific abnormal finding of lung field (principal)
CPT/HCPCS: 36415; 71270; 82565; 84520; Q9967

== ENCOUNTER → 2021-05-17 12:00 | Outpatient (POV) | payer MEDICARE, MEDICAID, SELFPAY ==
[2021-05-17 12:25] VITALS: BP 169/123; PULSE 88; RESP 18; TEMP 37.6; O2SAT 95; BMI 18.8
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
== END ==
PROVIDERS: Visit Provider Nurse Anesthetist, Certified Registered
DX: M54.2 Cervicalgia (principal); G89.29 Other chronic pain; Z98.890 Other specified postprocedural states; M47.22 Other spondylosis with radiculopathy, cervical region; Z76.1 Encounter for health supervision and care of foundling
CPT/HCPCS: 99202; G0463

== ENCOUNTER → 2021-06-08 09:29 | Outpatient (CLI) | payer MEDICARE, MEDICAID, SELFPAY ==
--- NOTE | 2021-06-08 09:36 | XR_ITS ---
FINAL REPORT CLINICAL HISTORY: BL shoulder pain. no recent injury FINDINGS: LEFT SHOULDER: 3 views of the left shoulder were obtained. There is no acute fracture or dislocation. There is mild degenerative change of the acromioclavicular joint. There is moderate degenerative change of the glenohumeral joint. There is no soft tissue abnormality. IMPRESSION: Mild and moderate degenerative changes. Reviewed, Interpreted and Dictated by Enmanuel Carlos III, MD Transcribed by Demarcus Ontiveros Authenticated by Enmanuel Carlos III, MD on 06/08/2021 10:34:16 AM [facility]
--- NOTE | 2021-06-08 09:36 | XR_ITS ---
FINAL REPORT CLINICAL HISTORY: bl shoulder pain. no recent injury FINDINGS: RIGHT SHOULDER: 3 views of the right shoulder were obtained. There is no acute fracture or dislocation. There is mild degenerative change of the acromioclavicular joint. There is moderate degenerative change of the glenohumeral joint. There is no soft tissue abnormality. IMPRESSION: Mild and moderate degenerative changes. Reviewed, Interpreted and Dictated by Enmanuel Carlos III, MD Transcribed by Demarcus Ontiveros Authenticated by Enmanuel Carlos III, MD on 06/08/2021 10:34:[address] [facility]
== END ==
PROVIDERS: PCP Emergency Medicine; Visit Provider Orthopaedic Surgery
DX: M25.511 Pain in right shoulder (principal); M25.512 Pain in left shoulder
CPT/HCPCS: 73030

== ENCOUNTER 2021-06-13 13:49 | Emergency (ER) | payer MEDICARE, MEDICAID, SELFPAY ==
[2021-06-13 14:15] VITALS: BP 178/92; PULSE 78; RESP 19; TEMP 37; O2SAT 97; BMI 22.6
--- NOTE | 2021-06-13 14:17 | XR_ITS ---
FINAL REPORT CLINICAL HISTORY: PAIN; no known injury FINDINGS: LEFT HIP 2 views of the left hip are obtained. There is no acute fracture or dislocation. Visualized joint spaces are normally aligned. There is no acute soft tissue abnormality. IMPRESSION: No acute bony abnormality. Reviewed, Interpreted and Dictated by Enmanuel Carlos III, MD Transcribed by Kassidy Lino Authenticated by Enmanuel Carlos III, MD on 06/13/2021 04:36:46 PM [facility]
--- NOTE | 2021-06-13 14:35 | HMH.EDUTC ---
[facility] [place] Disposition Clinical Impression: Sciatica of left side Disposition: Home, Self-Care Condition on Discharge: Good Instructions: DI for Hip Pain, Help for Hip Pain, DI for Sciatica, Methylprednisolone Additional Instructions: Warm soaks in warm water with epson salt may help with pain Follow up with your Family Doctor and/or Pain Clinic for further treatment and evaluation Return if needed Straight to ER if any life threatening symptoms Prescriptions: methylPREDNISolone [Medrol 4mg tab] 4 mg PO DIRECTED #21 tab Transmission Status: Pending to [facility] Referrals: Provider,Referral, [Primary Care Provider] - As needed Medical Decision Making - Salvador Inquiry Pt receiving controlled substance: No Salvador was queried for this patient: No Vital Signs: 06/13/21 14:15 Temperature 98.6 F Temperature Source Oral Pulse Rate [Right Brachial] 78 Respiratory Rate 19 Blood Pressure [Right Arm] 178/92 H Blood Pressure Mean [Right Arm] 120 Blood Pressure Source [Right Arm] Automatic Cuff Blood Pressure Position [Right Arm] Sitting 02 Sat by Pulse Oximetry 97 Oxygen Delivery Method Room Air - Radiology Data #1 Image(s): Hip Image Reviewed: Yes I have reviewed radiologist's interpretation IMPRESSION: No acute bony abnormality. Medical Decision Narrative: Patient refused Solumedrol injection in [facility] today [facility] [place] HPI - General Stated complaint: lt hip/leg pain Time Seen by Provider: 06/13/21 14:35 Mode of Arrival: Ambulatory Source of Information: Patient Limitations: No Limitations Description of Symptoms (Recalled from Triage Doc. by RN): PATIENT C/O LEFT HIP PAIN RADIATING DOWN LEFT X 1 WEEK HEENT Symptoms (Recalled from RN notes): No Resp Symptoms (Recalled from RN notes): No Skin Symptoms (Recalled from RN notes): No MS Symptoms (Recalled from RN notes): Yes Functional Status (Recalled from RN notes): WNL - History of Present Illness Provider Complaint: Patient state that he has been having pain in his left hip that radiates down his upper thigh for about a week Denies known injury Denies pain in back at this time and reports pain his buttock area without known injury States that pain has continued and today he was still hurting so he came in to get it checked - Related Data Home Medications Medication Instructions Recorded Confirmed Albuterol Sulfate [Albuterol 2 inh INHALATION Q4-6H 05/17/21 05/17/21 Sulfate Hfa] Fluticasone/Vilanterol [Breo 1 inh INHALATION DAILY 05/17/21 05/17/21 Ellipta] Guaifenesin/Dextromethorphan 1 tab PO Q12H 05/17/21 05/17/21 [Guaifenesin-Dm ER 1,200-60 mg] Nicotine [Nicotine Patch 1 patch TRANSDERMA DAILY 05/17/21 05/17/21 21mg/24hrs] levoFLOXacin [Levofloxacin] 500 mg PO Q24H 05/17/21 05/17/21 predniSONE [Deltasone 20mg 20 mg PO DAILY 05/17/21 05/17/21 tablet] Previous Rx's Medication Instructions Recorded Diclofenac Sodium [Diclofenac 75mg 75 mg PO BID #60 tab 05/17/21 Tab] Gabapentin [Neurontin 300mg 300 mg PO HS 30 Days #30 cap 05/17/21 capsule] methylPREDNISolone [Medrol 4mg 4 mg PO DIRECTED #21 tab 06/13/21 tab] Allergies Allergy/AdvReac Type Severity Reaction Status Date / Time acetaminophen Allergy Verified 05/06/21 13:19 [From Tylenol-Codeine #3] codeine Allergy Verified 05/06/21 13:19 [From Tylenol-Codeine #3] gabapentin Allergy Verified 05/06/21 13:19 - Worker's Comp Is this a Worker's Comp case?: No [facility] History - Hepatitis A Screen Attestation statement:: This patient has been screened for Hepatitis A risk factors. I have reviewed the patient's past medical history: Yes Medical History: Reports:: Chronic Obstructive Pulmonary Disease (COPD), Coronary Artery Disease, Hyperlipidemia, Hypertension, Internal Pacemaker Denies:: Cancer, Diabetes Mellitus Type 1, Diabetes Mellitus Type 2, MRSA Other Surgeries: Yes: Appendectomy, Cardiac Cathete
[2021-06-13 16:52] VITALS: BP 178/92; PULSE 78; RESP 19; TEMP 37; O2SAT 97
== END 2021-06-13 16:55 | disposition home or self-care (01) ==
PROVIDERS: Emergency Provider Nurse Practitioner
DX: M54.32 Sciatica, left side (principal); I10 Essential (primary) hypertension; E78.5 Hyperlipidemia, unspecified; J44.9 Chronic obstructive pulmonary disease, unspecified; F17.210 Nicotine dependence, cigarettes, uncomplicated; Z79.899 Other long term (current) drug therapy
CPT/HCPCS: 73502; 99213; G0463

== ENCOUNTER → 2021-06-16 14:33 | Outpatient (POV) | payer MEDICARE, MEDICAID, SELFPAY ==
--- NOTE | 2021-06-16 14:54 | HMH.PAINSOAP ---
[facility] Pain Management SOAP Note Subjective:: Patient is a pleasant 71-year-old male who presents today as a follow-up. Patient is currently being treated for degenerative disc disease of the cervical spine with cervical radiculopathy symptoms, history of cervical fusion, bilateral shoulder pain, low back pain. Patient recently established with us on May 17, 2021. When he was in our clinic, he states that he has had a 3 level posterior cervical fusion, has tried multiple injections in the past at different pain clinics. He was also established at a pain clinic previously but he was discharged from there because he failed a drug screen. When we saw this patient, we discussed with him that he is a good candidate for a spinal cord stimulator. He was interested in looking it over. We also started him on gabapentin 300 mg at bedtime. He states that this medication is somewhat helping his pain. Today, patient presents with worsening left upper buttock pain that radiates to left leg. He went to the ER 1 to 2 days ago. They started him on a steroid pack. He says that he takes anti-inflammatory medications all the time. He rates his pain today as 8 out of 10. Salvador [phone] with an active morphine equivalent of 0. Review of Systems: General: No recent weight changes, no fever, no sleep disturbances Respiratory: No cough, no shortness of air, no recurring pulmonary infections Cardiovascular/peripheral vascular: No chest pain, no palpitations, no edema, no shortness of breath Gastrointestinal: No new onset incontinence, normal bowel movements reported Genitourinary: No new onset incontinence Musculoskeletal: Neck pain, low back pain, shoulder pain Psychiatric: [Normal mood/affect] Neurological: [Denies weakness in extremities], [denies balance issues] Objective:: Physical Exam: General: Alert and oriented x3, no acute distress, pleasant and cooperative Lungs: Respirations even and unlabored, symmetrical chest expansion Eyes: PERRL Musculoskeletal: Flexion and extension of cervical and lumbar [spine] somewhat guarded secondary to pain, [antalgic gait noted]; left SI is positive for KELLI, Baylee's, Belmont's, Gaenslen's, compression, and distraction. Patient is tender to palpation around the left greater trochanteric bursa. Neurological: Speech clear, no gross sensory deficit Assessment:: Degenerative disc disease of the cervical spine with cervical radiculopathy symptoms, left-sided sacroiliitis, left-sided greater trochanteric bursitis, Shoulder pain Plan:: Patient presents today with worsening left upper buttock pain that radiates down to her left leg. Patient recently went to the ER for this pain. He was started on a Medrol Dosepak. Patient says that this is not helping his pain. At presentation, patient is positive for sacroiliitis and left greater trochanteric bursitis. Discussed with the patient that we can do left SI injection and left greater trochanteric bursa injection. Patient is not interested in these procedures. He says that he will seek a different pain clinic. Will follow with this patient as needed. If the patient does come back to our clinic, we will continue to manage this patient with non-opiate interventions. Patient has been instructed to contact the clinic with any concerns before the next appointment. Dr. Langston has reviewed this note and agrees with this plan of care. This note was dictated using voice recognition software and make contain errors or omissions. [facility] History Medical History: Reports:: Chronic Obstructive Pulmonary Disease (COPD), Coronary Artery Disease, Hyperlipidemia, Hypertension, Internal Pacemaker Denies:: Cancer, Diabetes Mellitus Type 1, Diabetes Mellitus Type 2, MRSA *Have you ever received a pneumonia vaccine?: No *Have you received a flu vaccine this season?: No Other Surgeries: Yes: Appendectomy, Cardiac Catheterization, Colonoscopy, Coronary Stent, Pacemaker, Other ([facility]
[2021-06-16 15:09] VITALS: BP 208/111; PULSE 92; RESP 20; TEMP 36.9; O2SAT 95; BMI 21.9
== END ==
PROVIDERS: Visit Provider Student in an Organized Health Care Education/Training Program
DX: M50.10 Cervical disc disorder with radiculopathy, unspecified cervical region (principal); M46.1 Sacroiliitis, not elsewhere classified; M70.62 Trochanteric bursitis, left hip; M25.519 Pain in unspecified shoulder
CPT/HCPCS: 99212; G0463

== ENCOUNTER 2021-06-23 13:14 | Emergency (ER) | payer MEDICARE, MEDICAID, SELFPAY ==
[2021-06-23 13:15] VITALS: BP 181/102; PULSE 89; RESP 18; TEMP 36.9; O2SAT 97; BMI 21.4
--- NOTE | 2021-06-23 13:22 | PC.NURSE ---
ED MD at
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
--- NOTE | 2021-06-23 13:33 | PC.NURSE ---
Spoke with ALLIE in Orthopaedics and set up appointment for patient to see Dr. Osorio on 07/06/21 @ 09:00. Patient given information
[2021-06-23 13:44] VITALS: BP 181/102; PULSE 89; RESP 18; TEMP 36.9; O2SAT 97
== END 2021-06-23 13:56 | disposition home or self-care (01) ==
PROVIDERS: Emergency Provider Emergency Medicine
DX: M54.42 Lumbago with sciatica, left side (principal); M25.552 Pain in left hip; I10 Essential (primary) hypertension; I25.10 Atherosclerotic heart disease of native coronary artery without angina pectoris; E78.5 Hyperlipidemia, unspecified; J44.9 Chronic obstructive pulmonary disease, unspecified; F17.210 Nicotine dependence, cigarettes, uncomplicated; Z79.51 Long term (current) use of inhaled steroids; Z79.899 Other long term (current) drug therapy; Z88.5 Allergy status to narcotic agent; Z88.6 Allergy status to analgesic agent; Z88.8 Allergy status to other drugs, medicaments and biological substances; Z82.49 Family history of ischemic heart disease and other diseases of the circulatory system; Z80.9 Family history of malignant neoplasm, unspecified
CPT/HCPCS: 96372; 99284

== ENCOUNTER 2021-07-12 20:57 | Emergency (ER) | payer MEDICARE, MEDICAID, SELFPAY ==
[2021-07-12 20:58] VITALS: BP 184/100; PULSE 80; RESP 16; TEMP 37.2; O2SAT 98; BMI 21.2
[2021-07-12 21:57] LABS: Microscopic, Urine URINE MICROSCOPIC (MICROSCOPIC)
[2021-07-12 22:01] LABS: Appearance,Urine CLEAR (Clear); Basophils # 0.1 K/mm3 (0-0.2); Basophils % 2.3 % (0.1-2.0); Bilirubin,Urine Negative (Negative); Blood, Urine 1+ (Negative); Chloride 100 mmol/L (98-107); Color,Urine YELLOW (Yellow); Eosinophils # 0.3 K/mm3 (0.0-0.4); Eosinophils % 5.2 % (0.1-12.0); Glucose,Urine (UA) Negative (Negative); Hematocrit 42.9 % (42.0-52.0); Hemoglobin 13.8 g/dL (14.1-18.0); Ketones,Urine Negative (Negative); Leukocyte Esterase,Urine Negative (Negative); Lymphocytes # 2.2 K/mm3 (0.7-4.5); Lymphocytes % 40.4 % (10-50); Mean Corpuscular HGB Conc 32.1 g/dL (31.8-35.4); Mean Corpuscular Hemoglobin 32.8 pg (27.0-31.2); Mean Corpuscular Volume 102.4 fl (80-94); Mean Platelet Volume 7.6 fl (7.4-10.4); Monocytes # 0.3 K/mm3 (0.1-1.0); Monocytes % 6.2 % (1.7-9.3); Neutrophils # 2.5 K/mm3 (1.8-7.8); Neutrophils % 45.9 % (37.0-80.0); Nitrate,Urine Negative (Negative); Platelet Count 301 K/mm3 (142-424); Potassium 4.1 mmoL/L (3.5-5.1); Protein,Urine Negative (Negative); Red Blood Count 4.19 M/mm3 (4.60-6.20); Red Cell Distribution Width 16.6 % (11.5-17.5); Sodium 136 mmol/L (136-145); Specific Gravity, Urine >= 1.030 (1.005-1.030); Urobilinogen,Urine 0.2 EU/dl (0.2); White Blood Count 5.5 K/mm3 (4.8-10.8)
[2021-07-12 22:03] LABS: Blood Urea Nitrogen 25 mg/dl (9-20); Creatinine Clearance Estimated 44 mL/min (50-200); Estimated Glomerular Filt Rate 60 ml/min (>60); GFR (African American) 72 ML/MIN (>60)
[2021-07-12 22:04] LABS: Alanine Aminotransferase 16 U/L (12-78); Albumin/Globulin Ratio 1.4 (1.1-1.8); Alkaline Phosphatase 88 U/L (38-126); Anion Gap 10.1 mEq/L (5-15); Aspartate Amino Transferase 28 U/L (17-59); Bilirubin,Total 0.2 mg/dl (0.2-1.3); Calcium 9.1 mg/dl (8.4-10.2); Carbon Dioxide 30 mmol/L (22.0-30.0); Globulin 2.9 g/dL (1.3-3.2); Glucose 105 mg/dl (74-100); Total Protein,Serum 6.9 g/dl (6.3-8.2)
[2021-07-12 22:10] LABS: C-Reactive Protein 4.8 mg/L (0-4)
[2021-07-12 22:25] LABS: WBC,Urine Occasional #/hpf (0-3)
[2021-07-12 22:37] LABS: Erythrocyte Sedimentation Rate 26 mm/hr (0-20)
--- NOTE | 2021-07-12 23:00 | PC.NURSE ---
warm blankets provided at this time
--- NOTE | 2021-07-12 23:02 | HMH.EDBACK ---
ED Disposition Clinical Impression: Lumbar radiculopathy Disposition: Home, Self-Care Condition on Discharge: Good Instructions: DI for Low Back Pain Additional Instructions: see pcp for follow up Referrals: John Vance MD [Primary Care Provider] - - Critical Care Critical Care Time: No Attestation: On 07/12/21, the high probability of a clinically significant, sudden or life threatening deterioration of the following system(s) required my full and direct attention, intervention and personal management. The time I documented below is in addition to time spent performing reported procedures but includes the following listed in this critical care notation. Medical Decision Making - Medical Records Medical records reviewed: Yes: I reviewed the patient's medical records. - Salvador Inquiry Pt receiving controlled substance: No Vital Signs: 07/12/21 20:58 Temperature 98.9 F Temperature Source Oral Pulse Rate [Left Radial] 80 Respiratory Rate 16 Blood Pressure [Right Arm] 184/100 H Blood Pressure Mean [Right Arm] 128 02 Sat by Pulse Oximetry 98 Oxygen Delivery Method Room Air - Lab Data Lab results reviewed: Yes: I reviewed the patient's lab results. Lab Results 07/12/21 21:45: Urine Color Yellow, Urine Appearance Clear, Urine pH 6.0, Ur Specific [place] >= 1.030, Urine Protein Negative, Urine Glucose (UA) Negative, Urine Ketones Negative, Urine Blood 1+, Urine Nitrate Negative, Urine Bilirubin Negative, Urine Urobilinogen 0.2, Ur Leukocyte Esterase Negative, Urine RBC 3-5, Urine WBC Occasional, Ur Squamous Epith Cells None, Urine Bacteria None 07/12/21 21:45: WBC 5.5, RBC 4.19 L, Hgb 13.8 L, Hct 42.9, MCV 102.4 H, MCH 32.8 H, MCHC 32.1, RDW 16.6, Plt Count 301, MPV 7.6, Neut % (Auto) 45.9, Lymph % (Auto) 40.4, Metcalfe % (Auto) 6.2, Eos % (Auto) 5.2, Baso % (Auto) 2.3 H, Neut # (Auto) 2.5, Lymph # (Auto) 2.2, Metcalfe # (Auto) 0.3, Eos # (Auto) 0.3, Baso # (Auto) 0.1, ESR 26 H 07/12/21 21:45: Sodium 136, Potassium 4.1, Chloride 100, Carbon Dioxide 30, Anion Gap 10.1, BUN 25 H, Creatinine 1.20, Estimated Creat Clear 44, Estimated GFR 60, Est GFR ( Amer) 72, Glucose 105 H, Calcium 9.1, Total Bilirubin 0.2, AST 28, ALT 16, Alkaline Phosphatase 88, C-Reactive Protein 4.8 H, Total Protein 6.9, Albumin 4.0, Globulin 2.9, Albumin/Globulin Ratio 1.4 07/12/21 21:45: Urine Opiates Screen Negative, Urine Methadone Screen Negative, Ur Barbituates Screen Negative, Ur Phencyclidine Scrn Negative, Ur Amphetamines Screen Negative, U Benzodiazepines Scrn Negative, Urine Cocaine Screen Negative, U Marijuana (THC) Screen Negative Result diagrams: 07/12/21 21:45 07/12/21 21:45 Orders (Tests/Meds): ED MEDICATIONS Generic Name Dose Route Start Last Admin Trade Name Freq PRN Reason Stop Dose Admin Sodium Chloride 1,000 mls @ 999 mls/hr 07/12/21 21:45 07/12/21 22:24 Sod Chlor 0.9% 1000ml Bag IV 07/12/21 22:45 999 mls/hr .Q1H1M GERALDO Administration Discontinued Medications Generic Name Dose Route Start Last Admin Trade Name Freq PRN Reason Stop Dose Admin Ketorolac Tromethamine 15 mg 07/12/21 21:36 07/12/21 22:23 Ketorolac 30mg/Ml Vial IV 07/12/21 21:37 15 mg ONCE ONE Administration Methylprednisolone Sodium Succinate 125 mg 07/12/21 21:36 07/12/21 22:23 Methylprednisolone Sod Succ 125mg Vial IV 07/12/21 21:37 125 mg ONCE ONE Administration - Radiology Data #1 Image(s): L-Spine Image Reviewed: Yes I have reviewed radiologist's interpretation Preliminary Findings: Abnormal (see report ) Medical Decision Narrative: pt with lumbar dis and stable exam and will need to see pcp for follow up Back Pain HPI - General Chief Complaint: Back Pain/Injury Stated Complaint: hip pain Time Seen by Provider: 07/12/21 23:02 Mode of Arrival: Ambulatory Source of Information: Patient, Relative, Medical Record Limitations: No Limitations Description of Symptoms (Recalled from ER T
--- NOTE | 2021-07-12 23:16 | XR_ITS ---
PROCEDURE INFORMATION: Exam: XR Lumbosacral Spine Exam date and time: 07/12/2021 11:17 PM Age: 71 years old Clinical indication: Low back pain; Patient HX: Left leg weakness TECHNIQUE: Imaging protocol: XR of the lumbosacral spine. Views: 4 or 5 views. COMPARISON: SPLUMBWO MR lumbar spine wo con 03/23/2017 9:08 AM FINDINGS: Bones/joints: There are 5 lumbar type vertebrae. Vertebral body heights are normal throughout. There is multilevel degenerative disc disease with anterior osteophyte formation. Minimal lower lumbar facet arthropathy is most prominent at L4-5 and L5-S1. No significant neural foraminal stenosis appreciated. Spinal stenosis is not excluded on plain film. Normal symmetric sacroiliac joints. Soft tissues: Unremarkable. IMPRESSION: Multilevel degenerative disc disease with minimal facet arthropathy. Given patient's left lower extremity weakness, further investigation is warranted. MR would be the most sensitive and specific imaging modality but if not available, CT may be helpful to evaluate for large disc protrusion.
[2021-07-12 23:46] LABS: Amphetamine/Metha Screen,Urine Negative ng/ml (<1000)
[2021-07-12 23:47] LABS: Barbiturates Screen,Urine Negative ng/ml (<200); Benzodiazepines Screen,Urine Negative ng/ml (<200)
[2021-07-12 23:48] LABS: Cannabinoid Screen,Urine Negative ng/ml (<50)
[2021-07-12 23:49] LABS: Cocaine Screen,Urine Negative ng/ml (<300); Methadone Screen,Urine Negative ng/ml (<300)
[2021-07-12 23:50] LABS: Opiate Screen,Urine Negative ng/ml (<300); Phencyclidine Screen,Urine Negative ng/ml (<25)
--- NOTE | 2021-07-13 00:20 | PC.NURSE ---
rounded on pt and updated on POC
[2021-07-13 00:56] VITALS: BP 188/102; PULSE 78; RESP 16; TEMP 36.7; O2SAT 98
== END 2021-07-13 00:59 | disposition home or self-care (01) ==
PROVIDERS: Emergency Provider Emergency Medicine; PCP Emergency Medicine
DX: M54.16 Radiculopathy, lumbar region (principal); Z79.899 Other long term (current) drug therapy; J44.9 Chronic obstructive pulmonary disease, unspecified; I25.10 Atherosclerotic heart disease of native coronary artery without angina pectoris; E78.5 Hyperlipidemia, unspecified; I10 Essential (primary) hypertension; Z95.0 Presence of cardiac pacemaker; Z72.0 Tobacco use; Z88.6 Allergy status to analgesic agent
CPT/HCPCS: 72110; 80053; 80305; 81001; 85025; 85651; 86140; 96365; 96375; 99284

== ENCOUNTER 2021-08-25 13:06 | Emergency (ER) | payer MEDICARE, MEDICAID, SELFPAY ==
[2021-08-25] VITALS (9 sets, daily range): BP systolic 137–182; BP diastolic 74–96; PULSE 87–104; RESP 16–22; TEMP 36.6–37.7; O2SAT 95–98; BMI 25.8
--- NOTE | 2021-08-25 13:12 | ECG_ITS ---
APPROVED REPORT Exam: Resting ECG HR:103 bpm ECG Measurements Heart Rate 103 AXES IA 127 P 82 QRSd 97 QRS 82 QT 313 T 64 QTc 373 Conclusion SINUS TACHYCARDIA ABNORMAL RHYTHM ECG UNCONFIRMED REPORT Electronically signed by : Mendez Romano MD 08/26/2021 15:36:14
--- NOTE | 2021-08-25 13:14 | PC.NURSE ---
EKG obtained and given to ER MD; DAVID Nance at for triage, patient hooked to monitor.
--- NOTE | 2021-08-25 13:23 | XR_ITS ---
FINAL REPORT CLINICAL HISTORY: SOB, smoker COMPARISON: 09/27/2020 FINDINGS: A single portable view of the chest was obtained. The heart size and pulmonary vascularity are within normal limits. The mediastinum is within normal limits. No acute pulmonary abnormality is identified. There is degenerative change in the shoulders. There is postoperative change in the lower cervical spine. IMPRESSION: No active cardiopulmonary disease. Reviewed, Interpreted and Dictated by Enmanuel Carlos III, MD Transcribed by Rosa Borja Authenticated and [facility]
--- NOTE | 2021-08-25 13:50 | PC.NURSE ---
Called and spoke with Elisabeth in [place], she is aware of DUONEB and will be down to start on patient
--- NOTE | 2021-08-25 14:00 | PC.NURSE ---
RT at BS
[2021-08-25 14:09] LABS: Basophils % 0.5 % (0.1-2.0); Eosinophils # 0.1 K/mm3 (0.0-0.4); Eosinophils % 0.9 % (0.1-12.0); Hemoglobin 13.7 g/dL (14.1-18.0); Lymphocytes # 1.1 K/mm3 (0.7-4.5); Lymphocytes % 12.9 % (10-50); Mean Corpuscular HGB Conc 33.5 g/dL (31.8-35.4); Mean Corpuscular Hemoglobin 31.2 pg (27.0-31.2); Mean Corpuscular Volume 93.2 fl (80-94); Monocytes # 0.4 K/mm3 (0.1-1.0); Monocytes % 4.6 % (1.7-9.3); Neutrophils # 6.6 K/mm3 (1.8-7.8); Neutrophils % 81.1 % (37.0-80.0); Platelet Count 274 K/mm3 (142-424); Red Cell Distribution Width 14.1 % (11.5-17.5); White Blood Count 8.2 K/mm3 (4.8-10.8)
[2021-08-25 14:12] LABS: Chloride 98 mmol/L (98-107); Potassium 4.2 mmoL/L (3.5-5.1); Sodium 130 mmol/L (136-145)
[2021-08-25 14:15] LABS: Alanine Aminotransferase 17 U/L (12-78); Albumin/Globulin Ratio 1.3 (1.1-1.8); Alkaline Phosphatase 65 U/L (38-126); Anion Gap 10.2 mEq/L (5-15); Aspartate Amino Transferase 28 U/L (17-59); Bilirubin,Total 0.4 mg/dl (0.2-1.3); Blood Urea Nitrogen 21 mg/dl (9-20); Carbon Dioxide 26 mmol/L (22.0-30.0); Creatinine Clearance Estimated 73 mL/min (50-200); Estimated Glomerular Filt Rate 74 ml/min (>60); GFR (African American) 89 ML/MIN (>60); Globulin 3.2 g/dL (1.3-3.2); Total Protein,Serum 7.2 g/dl (6.3-8.2)
[2021-08-25 14:16] LABS: Calcium 9.1 mg/dl (8.4-10.2); Glucose 117 mg/dl (74-100)
--- NOTE | 2021-08-25 14:24 | PC.NURSE ---
covid swab sent to the lab. pt given ordered pain medication at this time
[2021-08-25 14:27] LABS: Influenza A, PCR Not Detected (NotDetected); Influenza B, PCR Not Detected (NotDetected)
[2021-08-25 14:27] LABS: Troponin I < 0.01 ng/ml (0.00-0.034)
--- NOTE | 2021-08-25 14:55 | HMH.EDGENADL ---
ED Disposition Clinical Impression: COVID-19 Disposition: Home, Self-Care Condition on Discharge: Good Instructions: Coronavirus Disease 2019 Prescriptions: methylPREDNISolone [Medrol 4mg tab] 4 mg PO DIRECTED #21 tab Transmission Status: Pending to [facility] Referrals: Provider,Referral, [Primary Care Provider] - - Critical Care Critical Care Time: No Attestation: On 08/25/21, the high probability of a clinically significant, sudden or life threatening deterioration of the following system(s) required my full and direct attention, intervention and personal management. The time I documented below is in addition to time spent performing reported procedures but includes the following listed in this critical care notation. Medical Decision Making - Medical Records Medical records reviewed: Yes: I reviewed the patient's medical records. - Salvador Inquiry Pt receiving controlled substance: Yes Salvador was queried for this patient: Yes Reference #:: [id number] Risks and benefits of using a controlled substance: were discussed with pt by me Vital Signs: 08/25/21 13:07 08/25/21 13:30 08/25/21 14:00 Temperature 99.8 F H Temperature Source Oral Pulse Rate 97 H 98 H Pulse Rate [Radial] 104 H Respiratory Rate 22 Blood Pressure 163/96 H 137/81 Blood Pressure [Right Arm] 157/94 H Blood Pressure Mean 123 99 Blood Pressure Mean [Right Arm] 115 Blood Pressure Position [Right Arm] Sitting 02 Sat by Pulse Oximetry 98 98 95 Oxygen Delivery Method Room Air 08/25/21 14:03 08/25/21 14:30 08/25/21 15:00 Temperature Temperature Source Pulse Rate 90 97 H 98 H Pulse Rate [Radial] Respiratory Rate Blood Pressure 174/93 H 182/95 H Blood Pressure [Right Arm] Blood Pressure Mean 120 119 Blood Pressure Mean [Right Arm] Blood Pressure Position [Right Arm] 02 Sat by Pulse Oximetry 95 96 Oxygen Delivery Method 08/25/21 15:30 08/25/21 16:00 Temperature Temperature Source Pulse Rate 96 H 97 H Pulse Rate [Radial] Respiratory Rate 18 18 Blood Pressure 165/96 H 150/88 H Blood Pressure [Right Arm] Blood Pressure Mean 114 105 Blood Pressure Mean [Right Arm] Blood Pressure Position [Right Arm] 02 Sat by Pulse Oximetry 95 95 Oxygen Delivery Method - Lab Data Lab Results 08/25/21 13:55: WBC 8.2, RBC 4.40 L, Hgb 13.7 L, Hct 41.0 L, MCV 93.2, MCH 31.2, MCHC 33.5, RDW 14.1, Plt Count 274, MPV 7.0 L, Neut % (Auto) 81.1 H, Lymph % (Auto) 12.9, [place] % (Auto) 4.6, Eos % (Auto) 0.9, Baso % (Auto) 0.5, Neut # (Auto) 6.6, Lymph # (Auto) 1.1, [place] # (Auto) 0.4, Eos # (Auto) 0.1, Baso # (Auto) 0.0 08/25/21 13:55: Sodium 130 L, Potassium 4.2, Chloride 98, Carbon Dioxide 26, Anion Gap 10.2, BUN 21 H, Creatinine 1.00, Estimated Creat Clear 73, Estimated GFR 74, Est GFR ( Amer) 89, Glucose 117 H, Calcium 9.1, Total Bilirubin 0.4, AST 28, ALT 17, Alkaline Phosphatase 65, Troponin I < 0.01, Total Protein 7.2, Albumin 4.0, Globulin 3.2, Albumin/Globulin Ratio 1.3 08/25/21 14:17: SARS-CoV-2 (PCR) Detected A, Influenza A Untype (PCR) Not detected, Influenza Type B (PCR) Not detected Result diagrams: 08/25/21 13:55 08/25/21 13:55 Orders (Tests/Meds): ED MEDICATIONS Discontinued Medications Generic Name Dose Route Start Last Admin Trade Name Freq PRN Reason Stop Dose Admin Albuterol/Ipratropium 3 ml 08/25/21 13:37 08/25/21 14:02 Ipratropium/Albuterol 3 Ml Neb 08/25/21 13:38 3 ml ONCE ONE Administration Morphine Sulfate 4 mg 08/25/21 14:24 08/25/21 14:28 Morphine 4mg/Ml Syringe IV 08/25/21 14:25 4 mg ONCE ONE Administration Ondansetron HCl 4 mg 08/25/21 14:24 08/25/21 14:28 Ondansetron 4mg/2ml Vial IV 08/25/21 14:25 4 mg ONCE ONE Administration ORDERS Category Date Time Status Troponin I Q3H Lab 08/25/21 19:30 Ordered - Radiology Data #1 Image(s): Chest Image Reviewed: Yes I revi
--- NOTE | 2021-08-25 15:05 | PC.NURSE ---
FAMILY AT BEDSIDE UPDATED ON PLAN OF CARE
--- NOTE | 2021-08-25 15:18 | PC.NURSE ---
rounded on pt at this time. pt and visitor requesting beverage. approved. drinks provided to pt and visitor at this time
[2021-08-25 15:31] LABS: Coronavirus 19, PCR Detected (NotDetected)
--- NOTE | 2021-08-25 15:51 | PC.NURSE ---
FAMILY AT BEDSIDE, CALL LIGHT WITH IN REACH, SIDE RAILS UP X 2
== END 2021-08-25 17:16 | disposition home or self-care (01) ==
PROVIDERS: Emergency Provider Emergency Medicine
DX: U07.1 COVID-19 (principal)
CPT/HCPCS: 71045; 80053; 84484; 85025; 93005; 96374; 96375; 99284; C9803; J2405; U0003; U0005

== ENCOUNTER 2021-09-28 02:25 | Emergency (ER) | payer MEDICARE, MEDICAID, SELFPAY ==
--- NOTE | 2021-09-28 02:17 | ECG_ITS ---
APPROVED REPORT Exam: Resting ECG HR:68 bpm ECG Measurements Heart Rate 68 AXES CA 143 P 56 QRSd 95 QRS 51 QT 384 T 34 QTc 401 Conclusion SINUS RHYTHM LEFT ATRIAL ENLARGEMENT [-0.15mV P-WAVE IN V1/V2] ABNORMAL ECG UNCONFIRMED REPORT Electronically signed by : Mendez Romano MD 10/01/2021 08:12:55
[2021-09-28 02:22] VITALS: BP 171/95; PULSE 69; RESP 16; TEMP 36.8; O2SAT 98; BMI 25.8
--- NOTE | 2021-09-28 02:41 | XR_ITS ---
PROCEDURE INFORMATION: Exam: XR Left Hip Exam date and time: 09/28/2021 2:40 AM Age: 71 years (approx. age) old Clinical indication: Patient HX: Chronic left hip pain TECHNIQUE: Imaging protocol: Radiologic exam of the Left hip. Views: 2 or 3 views hip with pelvis when performed. COMPARISON: No relevant prior studies available. FINDINGS: Bones/joints: Unremarkable. No acute fracture. Soft tissues: Unremarkable. IMPRESSION: No acute findings.
--- NOTE | 2021-09-28 02:44 | XR_ITS ---
PROCEDURE INFORMATION: Exam: XR Chest Exam date and time: 09/28/2021 2:42 AM Age: 71 years (approx. age) old Clinical indication: Shortness of breath; Patient HX: SOA, leg pain; Additional info: HX smoker TECHNIQUE: Imaging protocol: Radiologic exam of the chest. Views: 1 view. COMPARISON: No relevant prior studies available. FINDINGS: Lungs: Unremarkable. No consolidation. Pleural spaces: Unremarkable. No pleural effusion. No pneumothorax. Heart/Mediastinum: Unremarkable. No cardiomegaly. Bones/joints: There is surgical fusion hardware in the lower cervical spine. Degenerative changes at both shoulders and in the spine. IMPRESSION: No acute cardiopulmonary abnormality.
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
[2021-09-28 04:49] VITALS: BP 154/74; PULSE 78; RESP 16; TEMP 36.6; O2SAT 98
[2021-09-28 10:41] LABS: Alanine Aminotransferase 12 U/L (12-78); Albumin Level 3.9 g/dl (3.5-5.0); Albumin/Globulin Ratio 1.3 (1.1-1.8); Alkaline Phosphatase 98 U/L (38-126); Anion Gap 7.3 mEq/L (5-15); Aspartate Amino Transferase 23 U/L (17-59); Blood Urea Nitrogen 20 mg/dl (9-20); Calcium 9.3 mg/dl (8.4-10.2); Carbon Dioxide 34 mmol/L (22.0-30.0); Chloride 98 mmol/L (98-107); Creatinine Clearance Estimated 75 mL/min (50-200); Estimated Glomerular Filt Rate 74 ml/min (>60); GFR (African American) 89 ML/MIN (>60); Globulin 3.1 g/dL (1.3-3.2); Glucose 114 mg/dl (74-100); Lactic Acid 0.8 mmol/L (0.7-2.1); Lipase 175 U/L (23-300); Potassium 4.3 mmoL/L (3.5-5.1); Procalcitonin 0.551 ng/mL (0.0-2.0); Sodium 135 mmol/L (136-145)
[2021-09-28 10:42] LABS: Bilirubin,Total < 0.1 mg/dl (0.2-1.3)
[2021-09-28 10:46] LABS: Hematocrit 40.5 % (42.0-52.0); Hemoglobin 13.8 g/dL (14.1-18.0); Mean Corpuscular Hemoglobin 31.5 pg (27.0-31.2); Mean Corpuscular Volume 92.3 fl (80-94); Red Blood Count 4.39 M/mm3 (4.60-6.20); White Blood Count 6.2 K/mm3 (4.8-10.8)
[2021-09-28 10:47] LABS: Eosinophils % 3.3 % (0.1-12.0); Lymphocytes % 44.2 % (10-50); Mean Corpuscular HGB Conc 34.1 g/dL (31.8-35.4); Mean Platelet Volume 7.1 fl (7.4-10.4); Monocytes % 6.3 % (1.7-9.3); Neutrophils # 2.8 K/mm3 (1.8-7.8); Neutrophils % 45.3 % (37.0-80.0); Platelet Count 303 K/mm3 (142-424); Red Cell Distribution Width 14.7 % (11.5-17.5)
[2021-09-28 10:48] LABS: Basophils # 0.1 K/mm3 (0-0.2); Eosinophils # 0.2 K/mm3 (0.0-0.4); Erythrocyte Sedimentation Rate 24 mm/hr (0-20); Lymphocytes # 2.8 K/mm3 (0.7-4.5); Monocytes # 0.4 K/mm3 (0.1-1.0)
[2021-09-28 11:12] LABS: Troponin I < 0.01 ng/ml (0.00-0.034)
--- NOTE | 2021-09-28 12:49 | PC.NURSE ---
notes entered from downtime documentation: 0300- pts daughter at , updated on POC. she became upset and yelled and cussed. feed inspection supervisor notified and MD notified of family's outburst. She elected to leave the premises. (starr,RN) 0312- pt c/o pain. MD reviewed xrays. v/o for solumedrol 125 mg IVP x1 and Toradol 30 mg IVP x1 (katty,RN) 0435- MD discussing results. Okayed tramadol take home pack order (starr,RN) 0437- family called for update. Pt gave permission to disclose information to daughter. We explained to daughter that pt will be discharged and he is stable with no acute findings on his evaluation and he is to follow up with PCP. Asked daughter to please make her way to the hospital if she is his ride. 0439- pt given a tramadol 50 mg take home pack per MD order. Pt educated on proper dosing. 0444- IV removed 044- pt assisted to wheelchair and discharged to lobby to wait for family.
== END 2021-09-28 04:49 | disposition home or self-care (01) ==
PROVIDERS: Emergency Provider Emergency Medicine; PCP Emergency Medicine
DX: M79.605 Pain in left leg (principal); M25.552 Pain in left hip
CPT/HCPCS: 71045; 73502; 80053; 83605; 83690; 84145; 84484; 85025; 85651; 86140; 87040; 93005; 96374; 96375; 99284

== ENCOUNTER → 2022-02-22 13:37 | Outpatient (CLI) | payer MEDICARE, MEDICAID, SELFPAY ==
--- NOTE | 2022-02-22 13:43 | MR_ITS ---
FINAL REPORT TECHNIQUE: Multiplanar and multisequence imaging of the lumbar spine was obtained without contrast. CLINICAL HISTORY: LOW BACK AND left HIP PAIN FINDINGS: There is normal alignment of the lumbar vertebral bodies. Vertebral body height is preserved. The spinal cord ends at the level of L1. There is normal signal intensity within the substance of the distal spinal cord. Bone marrow signal intensity is normal. No acute paraspinal abnormality is identified. L1-2: An annular disc bulge is present. No central canal stenosis or neural foraminal narrowing. L2-3: An annular disc bulge is present. There is mild central canal stenosis. There is mild right and moderate left neural foraminal narrowing. L3-4: An annular disc bulge is present with degenerative endplate change and facet osteoarthropathy. There is mild to moderate central canal stenosis. There is severe, left greater than right neural foraminal narrowing. L4-5: An annular disc bulge is present with degenerative endplate changes and facet osteoarthropathy. There is mild to moderate central canal stenosis. There is severe left and moderate right neural foraminal narrowing. L5-S1: There is no focal disc herniation. There is mild right and moderate left neural foraminal narrowing related to facet osteoarthropathy. IMPRESSION: Multilevel degenerative disc disease as detailed above for each level. Reviewed, Interpreted and Dictated by Susan Hayden MD Transcribed by Rosa Borja Authenticated and [facility]
== END ==
PROVIDERS: PCP Nurse Practitioner Family; Visit Provider Nurse Practitioner Family
DX: M54.50 Low back pain, unspecified (principal); M25.552 Pain in left hip
CPT/HCPCS: 72148; 76376

== ENCOUNTER 2022-05-17 14:37 | Observation (INO) | payer MEDICARE, MEDICAID, SELFPAY ==
[2022-05-17] VITALS (13 sets, daily range): BP systolic 152–172; BP diastolic 83–108; PULSE 63–114; RESP 16–20; TEMP 36.6; O2SAT 95–100; BMI 20.3; BMI 21.7
--- NOTE | 2022-05-17 14:59 | ECG_ITS ---
APPROVED REPORT Exam: Resting ECG HR:76 bpm ECG Measurements Heart Rate 76 AXES MN 145 P 79 QRSd 103 QRS 70 QT 356 T 94 QTc 387 Conclusion SINUS RHYTHM NORMAL ECG UNCONFIRMED REPORT Electronically signed by : Mendez Romano MD 05/19/2022 09:35:05
--- NOTE | 2022-05-17 15:15 | XR_ITS ---
FINAL REPORT CLINICAL HISTORY: soa COMPARISON: 09/28/2021 FINDINGS: SINGLE-VIEW CHEST The heart size is normal. The mediastinum is normal. The lungs are clear. There is no pneumothorax. There is postoperative change in the lower cervical spine. IMPRESSION: No acute cardiopulmonary process. Reviewed, Interpreted and Dictated by Enmanuel Carlos III, MD Transcribed by Lee Ann Alfaro Authenticated and . [facility]
[2022-05-17 15:31] LABS: Basophils # 0.1 K/mm3 (0-0.2); Eosinophils # 0.3 K/mm3 (0.0-0.4); Eosinophils % 3.9 % (0.1-12.0); Hemoglobin 14.6 g/dL (14.1-18.0); Lymphocytes # 2.5 K/mm3 (0.7-4.5); Lymphocytes % 35.1 % (10-50); Mean Corpuscular HGB Conc 32.5 g/dL (31.8-35.4); Mean Corpuscular Volume 92.3 fl (80-94); Mean Platelet Volume 7.9 fl (7.4-10.4); Monocytes # 0.5 K/mm3 (0.1-1.0); Monocytes % 6.5 % (1.7-9.3); Neutrophils # 3.8 K/mm3 (1.8-7.8); Neutrophils % 53.5 % (37.0-80.0); Platelet Count 279 K/mm3 (142-424); Red Blood Count 4.88 M/mm3 (4.60-6.20); Red Cell Distribution Width 14.1 % (11.5-17.5); White Blood Count 7.1 K/mm3 (4.8-10.8)
[2022-05-17 16:14] LABS: Chloride 97 mmol/L (98-107); Potassium 4.2 mmoL/L (3.5-5.1); Sodium 136 mmol/L (136-145)
[2022-05-17 16:17] LABS: Blood Urea Nitrogen 27 mg/dl (9-20); Creatinine Clearance Estimated 40 mL/min (50-200); Estimated Glomerular Filt Rate 50 ml/min (>60); GFR (African American) 60 ML/MIN (>60)
[2022-05-17 16:18] LABS: Anion Gap 12.2 mEq/L (5-15); Calcium 8.8 mg/dl (8.4-10.2); Carbon Dioxide 31 mmol/L (22.0-30.0); Glucose 95 mg/dl (74-100)
[2022-05-17 16:37] LABS: Troponin I < 0.01 ng/ml (0.00-0.034)
--- NOTE | 2022-05-17 17:31 | HMH.EDGENADL ---
Discharge Plan Disposition Patient Disposition: Admitted As Inpatient Chief Complaint: Dizziness Prescriptions Prescriptions: No Action albuterol sulfate [ProAir HFA] 90 mcg/actuation HFA aerosol inhaler 2 inh inhalation PRN budesonide-formoterol [Symbicort] 160-4.5 mcg/actuation HFA aerosol inhaler 1 puff inhalation DAILY rosuvastatin 20 mg tablet 20 mg PO DAILY duloxetine 30 mg capsule,delayed release(DR/EC) 30 mg PO DAILY montelukast 10 mg tablet 10 mg PO DAILY irbesartan 300 mg tablet 300 mg PO DAILY Referrals Follow up/Referrals: Lynette Tripathi APRN [Primary Care Provider] - See instructions Clinical Impressions Clinical Impression: Acute exacerbation of chronic obstructive pulmonary disease, Pre-syncope, Creatinine elevation Discharge ED Provider: Rajinder Long General Adult HPI General Chief complaint: Dizziness Stated complaint: phy ref,passed out,high blood pressure, SOA Time Seen by Provider: 05/17/22 17:10 Mode of Arrival: Ambulatory Source of Information: Patient and Relative Limitations: No Limitations Description of Symptoms (Recalled from ER Triage Doc. by RN): pt sent over from pcp office for further evaluation. pts was seen by pcp for shortness of air and cough ongoing for two weeks. when pt was being seen in pcp office, high blood pressure was noted (156/112; according to daughter). pt also reports approx 1.5 weeks ago, he fainted at home while peeling eggs. History of Present Illness HPI narrative: Patient is a 72-year-old male with past medical history of COPD not on home oxygen, previous coronary artery stents who presents to the emergency department for evaluation of shortness of breath and cough. Onset was subacute, 2 weeks ago. Patient has had worsening cough and associated presyncope. Patient lives alone at home and due to worsening symptoms presents here for continued evaluation. Related Data Home Medications Medication Instructions Recorded Confirmed albuterol sulfate 90 mcg/actuation 2 inh inhalation PRN 03/22/22 03/22/22 aerosol inhaler (ProAir HFA) budesonide-formoterol HFA 160 1 puff inhalation DAILY 03/22/22 03/22/22 mcg-4.5 mcg/actuation aerosol inhaler (Symbicort) duloxetine 30 mg capsule,delayed 30 mg PO DAILY 03/22/22 03/22/22 release irbesartan 300 mg tablet 300 mg PO DAILY 03/22/22 03/22/22 montelukast 10 mg tablet 10 mg PO DAILY 03/22/22 03/22/22 rosuvastatin 20 mg tablet 20 mg PO DAILY 03/22/22 03/22/22 Allergies Allergy/AdvReac Type Severity Reaction Status Date / Time acetaminophen Allergy Verified 03/22/22 14:12 [From Tylenol-Codeine #3] codeine Allergy Verified 03/22/22 14:12 [From Tylenol-Codeine #3] gabapentin Allergy Verified 03/22/22 14:12 [facility] Disclaimer: The information contained in this section may have been updated after the patient was seen, as this information can be updated by other users. Social History Smoking Status: Current every day smoker tobacco type: cigarettes packs per day: 1 second hand exposure: No alcohol intake: never substance use type: denies use current occupational status: retired and other Travel in the last 8 weeks: None household members: none housing: apartment current occupational exposures/hazards: No caffeine: Yes ROS Obtained: Yes Systems reviewed as appropriate & no additional complaints except as documented Physical Exam General General appearance: alert and in no apparent distress Head Head exam: atraumatic and normocephalic Eye Eye exam: Present PERRL and EOMI ENT ENT exam: Present mucous membranes moist Neck Neck exam: Present normal inspection Chest Chest inspection: Present normal inspection and symmetric chest wall rise Respiratory Respiratory exam: Present wheezes and prolonged expiratory phase; Absent respiratory distress Cardiovascular Cardiovascular exam: Present regular rate and normal rhythm
--- NOTE | 2022-05-17 17:33 | CT_ITS ---
PROCEDURE INFORMATION: Exam: CT Cervical Spine Without Contrast Exam date and time: 05/17/2022 6:55 PM Age: 72 years old Clinical indication: Injury or trauma; Fall TECHNIQUE: Imaging protocol: Computed tomography of the cervical spine without contrast. Radiation optimization: All CT scans at this facility use at least one of these dose optimization techniques: automated exposure control; mA and/or kV adjustment per patient size (includes targeted exams where dose is matched to clinical indication); or iterative reconstruction. REPORTING DATA: Count of CT and Cardiac NM exams in prior 12 months: This patient has received [address] and 0 known cardiac nuclear medicine studies in the 12 months prior to the current study. COMPARISON: MR CERVICAL SPINE WO CON 12/05/2018 3:00 PM FINDINGS: Bones/joints: There has been prior laminectomy and posterior orthopedic fusion of the C4, C5 and C6 levels. This includes partial osseous fusion at the intervening disc levels. There is minimal grade 1 anterolisthesis of C4. Moderate multilevel degenerative disc changes and facet arthropathy noted. No evidence of hardware failure or loosening. No acute fracture evident. Mild rightward convexity of the cervical spine noted. Lungs: Lung apices are normal. Soft tissues: Unremarkable. IMPRESSION: No evidence of acute injury. Chronic findings as noted.
--- NOTE | 2022-05-17 17:33 | CT_ITS ---
PROCEDURE INFORMATION: Exam: CT Head Without Contrast Exam date and time: 05/17/2022 6:52 PM Age: 72 years old Clinical indication: Injury or trauma; Fall; Additional info: Fall, syncope TECHNIQUE: Imaging protocol: Computed tomography of the head without contrast. Radiation optimization: All CT scans at this facility use at least one of these dose optimization techniques: automated exposure control; mA and/or kV adjustment per patient size (includes targeted exams where dose is matched to clinical indication); or iterative reconstruction. REPORTING DATA: Count of CT and Cardiac NM exams in prior 12 months: This patient has received [address] and 0 known cardiac nuclear medicine studies in the 12 months prior to the current study. COMPARISON: MR CERVICAL SPINE WO CON 12/05/2018 3:00 PM FINDINGS: Brain: There is mild generalized cerebral atrophy. Scattered periventricular white matter hypoattenuation compatible with chronic microvascular ischemic changes. No intracranial mass, hemorrhage or evidence of acute infarcts. Cerebral ventricles: No ventriculomegaly. Paranasal sinuses: Visualized sinuses are unremarkable. No fluid levels. Mastoid air cells: Visualized mastoid air cells are well aerated. Bones/joints: Unremarkable. No acute fracture. Soft tissues: Unremarkable. IMPRESSION: No acute intracranial abnormality
--- NOTE | 2022-05-17 17:49 | PC.NURSE ---
called to notify respiratory about ABG. pt stood at side of bed to use urinal. pt back in bed resting.
[2022-05-17 18:01] LABS: Adenovirus,PCR Not Detected (NotDetected); Bordetella Pertussis Not Detected (NotDetected); Chlamydophila Pneumoniae, PCR Not Detected (NotDetected); Coronavirus 19, PCR Not Detected (NotDetected); Coronavirus 229E Not Detected (NotDetected); Coronavirus NL63 Not Detected (NotDetected); Coronavirus OC43 Not Detected (NotDetected); Coronovirus HKU1,PCR Not Detected (NotDetected); Human Metapneumovirus Not Detected (NotDetected); Influenza A, PCR Not Detected (NotDetected); Influenza AH1, 2009 Not Detected (NotDetected); Influenza AH1, PCR Not Detected (NotDetected); Influenza AH3,PCR Not Detected (NotDetected); Influenza B, PCR Not Detected (NotDetected); Mycoplasma Pneumoniae, PCR Not Detected (NotDetected); Parainfluenza 1, PCR Not Detected (NotDetected); Parainfluenza 2, PCR Not Detected (NotDetected); Parainfluenza 3, PCR Not Detected (NotDetected); Parainfluenza 4, PCR Not Detected (NotDetected); Respiratory Syncytial Virus Not Detected (NotDetected); Rhinovirus/Enterovirus Not Detected (NotDetected)
[2022-05-17 18:09] LABS: ABG Base Excess 0.2 mmol/L (-2.4-2.3); ABG HCO3 24.3 mmhg (22.0-26.0); ABG Oxygen Saturation 97 % (90-100); ABG PCO2 36.5 mmhg (35.0-45.0); ABG PH 7.44 mmol/L (7.35-7.45); ABG PO2 81.9 mmhg (80-100); ABG TCO2 25.4 mmhg (23-27); Allen's Test Acceptable; Oxygen 21 %; Source Left Radial
--- NOTE | 2022-05-17 20:18 | EXP.HP ---
History of Present Illness *Admission Date: 05/17/22 *Reason for visit:: Cough, pre-syncope *History of present illness: Mr. Crocker is a 72-year-old male with a past medical istory of COPD, not on home oxygen, chronic tobacco abuse with 85.5 year pack history, HTN, Hyperlipidemia and CAD. He presents to [facility] due to a 2-week history of cough to the point of passing out. He reports that he saw his PCP and was given medications that he cannot recall the name of that he took with no relief. In the ER the patient underwent a CT of the head that showed no acute intracranial abnormalities. CT of the cervical spine showed no acute findings. Cxray showed no acute cardiopulmonary findings. ABG was unremarkable. CBC was unremarkable. CMP showed an elevated creatinine at 1.40. The patient was admitted with Acute Exacerbation of COPD. In the ER the patient received Methylprednisolone, Azithromycin and Duonebs. [facility] Disclaimer: The information contained in this section may have been updated after the patient was seen, as this information can be updated by other users. Medical History CAD (coronary artery disease) COPD (chronic obstructive pulmonary disease) Hyperlipidemia Hypertension Family History (Updated 05/17/22 @ 21:59 by Mary Velazquez RN) Other Family history of diabetes mellitus Social History (Updated 05/17/22 @ 22:02 by Mary Velazquez RN) Smoking Status: Current every day smoker tobacco type: cigarettes packs per day: 1 years smoked: 57 quit status: considering quitting second hand exposure: No Tobacco counseling given: patient declined alcohol intake: never substance use type: denies use current occupational status: retired and other Travel in the last 8 weeks: None household members: none housing: apartment lives independently: Yes marital status: legally education level: elementary school current occupational exposures/hazards: No caffeine: Yes physical activity: none Review of Systems Review of Systems Review of systems:: pertinent systems reviewed and negative unless documented below Constitutional Constitutional: Reports system reviewed and no additional complaints, except as documented Eyes Eyes: Reports system reviewed and no additional complaints, except as documented ENT Ears, Nose, Mouth, and Throat: Reports system reviewed and no additional complaints, except as documented and Reports vertigo *Cardiovascular Cardiovascular: Reports system reviewed and no additional complaints, except as documented and Reports syncope *Respiratory Respiratory: Reports cough *Gastrointestinal Gastrointestinal: Reports system reviewed and no additional complaints, except as documented *Genitourinary Genitourinary: Reports system reviewed and no additional complaints, except as documented *Musculoskeletal Musculoskeletal: Reports system reviewed and no additional complaints, except as documented Integumentary/Breasts Skin/Breast: Reports system reviewed and no additional complaints, except as documented *Neurologic Neurologic: Reports syncope and Reports vertigo Psychiatric Psychiatric: Reports system reviewed and no additional complaints, except as documented Endocrine Endocrine: Reports system reviewed and no additional complaints, except as documented Hematologic/Lymphatic Hematologic/Lymphatic: Reports system reviewed and no additional complaints, except as documented Allergic/Immunologic Allergic/Immunologic: Reports system reviewed and no additional complaints, except as documented Meds Home Medications and Allergies Home Medications Medication Instructions Recorded Confirmed Type albuterol sulfate 90 mcg/actuation 2 inh inhalation Q6HP PRN 03/22/22 05/18/22 History aerosol inhaler (ProAir HFA) Shortness Of Breath duloxetine 30 mg capsule,delayed 30 mg PO JAIRO
--- NOTE | 2022-05-18 03:10 | PC.NURSE ---
2299 jen velasco aprn was made aware of pt listed allergy to acetaminophen, however pt states he is only allergic to the tylenol with codeine in it, pt states he can take tylenol.
[2022-05-18 04:00] VITALS: BP 138/89; PULSE 69; RESP 18; TEMP 36.5; O2SAT 96; BMI 22.1
[2022-05-18 05:48] VITALS: PULSE 88; O2SAT 94
--- NOTE | 2022-05-18 06:37 | PC.NURSE ---
nasal swab specimen obtained and sent to lab for testing as ordered
--- NOTE | 2022-05-18 06:39 | PC.NURSE ---
pt admitted this shift, no acute distress, vss, pt is alert and oriented x4, lung sounds diminished bilaterally, 02 sats 94-96 on room air
[2022-05-18 08:00] VITALS: BP 135/84; PULSE 81; RESP 16; TEMP 36.5; O2SAT 96
--- NOTE | 2022-05-18 08:28 | HMH.PHAINT1 ---
Pharmacy Intervention Comments: Reconciled patient's home medications using pharmacy fill history.
[2022-05-18 08:44] LABS: Chloride 99 mmol/L (98-107); Potassium 4.3 mmoL/L (3.5-5.1); Sodium 134 mmol/L (136-145)
[2022-05-18 08:47] LABS: Alanine Aminotransferase 30 U/L (12-78); Albumin Level 3.8 g/dl (3.5-5.0); Albumin/Globulin Ratio 1.5 (1.1-1.8); Alkaline Phosphatase 60 U/L (38-126); Anion Gap 14.3 mEq/L (5-15); Aspartate Amino Transferase 28 U/L (17-59); Bilirubin,Total 0.2 mg/dl (0.2-1.3); Blood Urea Nitrogen 27 mg/dl (9-20); Carbon Dioxide 25 mmol/L (22.0-30.0); Creatinine Clearance Estimated 51 mL/min (50-200); Estimated Glomerular Filt Rate 60 ml/min (>60); GFR (African American) 72 ML/MIN (>60); Globulin 2.6 g/dL (1.3-3.2); Total Protein,Serum 6.4 g/dl (6.3-8.2)
[2022-05-18 08:48] LABS: Calcium 8.4 mg/dl (8.4-10.2); Glucose 199 mg/dl (74-100)
[2022-05-18 10:14] VITALS: PULSE 92; PULSE 95; O2SAT 97
--- NOTE | 2022-05-18 11:34 | EXP.DC.SUM ---
General Admission date:: 05/17/22 HPI HPI HPI: Mr. Crocker is a 72-year-old male with a past medical istory of COPD, not on home oxygen, chronic tobacco abuse with 85.5 year pack history, HTN, Hyperlipidemia and CAD. He presents to [facility] due to a 2-week history of cough to the point of passing out. He reports that he saw his PCP and was given medications that he cannot recall the name of that he took with no relief. In the ER the patient underwent a CT of the head that showed no acute intracranial abnormalities. CT of the cervical spine showed no acute findings. Cxray showed no acute cardiopulmonary findings. ABG was unremarkable. CBC was unremarkable. CMP showed an elevated creatinine at 1.40. The patient was admitted with Acute Exacerbation of COPD. In the ER the patient received Methylprednisolone, Azithromycin and Duonebs. Hospital Course Hospital Course Hospital Course: Patient is 72-year-old male admitted for COPD exacerbation and SHELBY. Patient was given a little bit of fluids with improvement of his creatinine. He also had significant improvement of his respiratory status function. Did not require oxygen. On discussion patient was wanting to go home given his improvement. He was given p.o. antibiotics, inhalers and discharged with PCP follow-up. Exam Data for Last 24 hours Vital signs and Labs for Last 24 Hours: Temp Pulse Resp BP Pulse Ox 97.7 F 95 H 16 135/84 97 05/18/22 08:00 05/18/22 10:14 05/18/22 08:00 05/18/22 08:00 05/18/22 10:14 Laboratory Results - last 24 hr 05/17/22 15:02: WBC 7.1, RBC 4.88, Hgb 14.6, Hct 45.0, MCV 92.3, MCH 30.0, MCHC 32.5, RDW 14.1, Plt Count 279, MPV 7.9, Neut % (Auto) 53.5, Lymph % (Auto) 35.1, Major % (Auto) 6.5, Eos % (Auto) 3.9, Baso % (Auto) 1.0, Neut # (Auto) 3.8, Lymph # (Auto) 2.5, Major # (Auto) 0.5, Eos # (Auto) 0.3, Baso # (Auto) 0.1 05/17/22 15:02: Sodium 136, Potassium 4.2, Chloride 97 L, Carbon Dioxide 31 H, Anion Gap 12.2, BUN 27 H, Creatinine 1.40 H, Estimated Creat Clear 40, Estimated GFR 50 L, Est GFR ( Amer) 60, Glucose 95, Calcium 8.8, Troponin I < 0.01 05/17/22 17:30: Specimen Source Left radial, O2 % 21, ABG pH 7.44, ABG pCO2 36.5, ABG pO2 81.9, ABG HCO3 24.3, ABG Total CO2 25.4, ABG O2 Saturation 97, ABG Base Excess 0.2, Stewart Test Acceptable 05/17/22 17:43: Chlamy pneumoniae PCR Not detected, Adenovirus (PCR) Not detected, B. pertussis DNA (PCR) Not detected, Coronavirus OC43 (PCR) Not detected, Coronavirus HKU1 (PCR) Not detected, Coronavirus 229E (PCR) Not detected, SARS-CoV-2 (PCR) Not detected, Coronavirus NL63 (PCR) Not detected, Human Metapneumovir PCR Not detected, Influenza A (H1) PCR Not detected, Influ A (H1N1/09) PCR Not detected, Influenza A (H3) PCR Not detected, Influenza Type A (PCR) Not detected, Influenza Type B (PCR) Not detected, M. pneumoniae (PCR) Not detected, Parainfluenza 1 (PCR) Not detected, Parainfluenza 2 (PCR) Not detected, Parainfluenza 3 (PCR) Not detected, Parainfluenza 4 (PCR) Not detected, RSV (PCR) Not detected, Entero/Rhino (PCR) Not detected 05/18/22 08:25: Sodium 134 L, Potassium 4.3, Chloride 99, Carbon Dioxide 25, Anion Gap 14.3, BUN 27 H, Creatinine 1.20, Estimated Creat Clear 51, Estimated GFR 60, Est GFR ( Amer) 72, Glucose 199 H D, Calcium 8.4, Total Bilirubin 0.2, AST 28, ALT 30, Alkaline Phosphatase 60, Total Protein 6.4, Albumin 3.8, Globulin 2.6, Albumin/Globulin Ratio 1.5 I & O for Last 24 hours: Intake & Output 05/15/22 05/16/22 05/17/22 05/18/22 23:59 23:59 23:59 23:59 Intake Total 913 / 913 Output Total 250 / 250 225 / 225 Balance -250 / -250 688 / 688 Weight 62.7 kg 63.9 kg Constitutional Constitutional: no acute distress *Routine HEENT Exam Head: Present normocephalic Eye: Present EOMI and PERRL ENT: Present mucous membranes moist *Routine Neck Exam Neck: Present supple; Absent lymphadenopathy *Routine Respiratory Exam Respiratory: Present
--- NOTE | 2022-05-18 11:49 | HMH.PHAINT1 ---
Pharmacy Intervention Comments: Counseled patient on new medicine doxycycline to START. Patient expressed understanding of medication indication, dose, route, frequency, and potential side effects.
--- NOTE | 2022-05-18 12:45 | CARE MANAGER ---
Addendum entered by Meghan Cam RN 05/18/22 13:19: Referral faxed to [facility] in [place], and [facility] [employer] [facility] will start tomorrow (per phone conversation with [facility]). Original Note: Spoke with patient for discharge planning, patient has daughters in the room with him who state that one of us is with him all the time. They are interested in some home health and prefer an agency in [place]. They have also asked about meals on wheels, this will be set up for patient. No further needs at this time.
--- NOTE | 2022-05-18 13:06 | PC.NURSE ---
patient rang out stating he had puked. upon assessment patient stated he had ate his pork chop and then started coughing hard, this then caused him to puke. did notify md order for zofran 4mg iv once done at this time.
--- NOTE | 2022-05-18 13:49 | PC.NURSE ---
educated patient and family on discharge instructions, including medications during stay. patient family asked about a nebulizer, and dr mcdonough stated he would order this for the patient.
[2022-05-18 13:52] VITALS: PULSE 104; PULSE 105; O2SAT 93
[2022-05-29 02:43] LABS: Bordetella pertussis DNA Negative
[2022-05-29 02:44] LABS: Bordetella parapertussis DNA Negative
== END 2022-05-18 13:49 | disposition home or self-care (01) ==
LOC: ER 19:53 → 2ND 20:22
PROVIDERS: Nurse Practitioner Family; Admitting Provider Student in an Organized Health Care Education/Training Program; Emergency Provider Emergency Medicine; PCP Nurse Practitioner Family; Visit Provider Student in an Organized Health Care Education/Training Program
DX: J44.1 Chronic obstructive pulmonary disease with (acute) exacerbation (principal); R55 Syncope and collapse; I10 Essential (primary) hypertension; I25.10 Atherosclerotic heart disease of native coronary artery without angina pectoris; F17.210 Nicotine dependence, cigarettes, uncomplicated; Z20.822 Contact with and (suspected) exposure to COVID-19; Z79.899 Other long term (current) drug therapy
CPT/HCPCS: G0378; 36415; 70450; 71045; 72125; 80048; 80053; 82803; 84484; 85025; 87581; 87632; 87798; 93005; 94640; 99285; C9803; J0456; J2405; U0003; U0005

== ENCOUNTER → 2022-11-21 10:10 | Outpatient (CLI) | payer MEDICARE, MEDICAID, SELFPAY ==
--- NOTE | 2022-11-21 10:14 | CT_ITS ---
FINAL REPORT CLINICAL HISTORY: H/O TOBACCO USE CURRENT SMOKER 1PPD [id number] COMPARISON: The May 2021 FINDINGS: Low-Dose Chest CT CTDI vol (mGy): 2.90 DLP (mGy-cm): 110.46 Axial images were obtained from the lung apex to the mid abdomen by computed tomography. Low-dose protocol was utilized. FINDINGS: CHEST: There is no axillary adenopathy. There is no hilar or mediastinal adenopathy. There is ectasia of the ascending aorta up to 39 mm. There is moderate coronary artery calcification. The heart is proper size. There is no pericardial or pleural effusion. Limited images of the upper abdomen are unremarkable. Lung window images demonstrate mild changes of emphysema with mild scarring. There are multiple bilateral pulmonary nodules. A posterior right upper lobe nodule measuring 7 mm on image 30 previously measured 7 mm. On image 33 in the lateral right upper lobe is a 6 mm nodule that previously measured 6 mm. Other smaller pulmonary nodules are visually stable. A calcified granuloma is seen in the right middle lobe. There is an 11 mm oval nodule in or adjacent to the superior segment of the right major fissure that previously measured 13 mm may reflect an intrafissural lymph node. IMPRESSION: Lung RADS category 2. Recommend 12 month follow-up low-dose chest CT. Reviewed, Interpreted and Dictated by Enmanuel Carlos III, MD Transcribed by Demarcus Ontiveros Authenticated and . [facility]
== END ==
PROVIDERS: PCP Nurse Practitioner Family; Visit Provider Nurse Practitioner Family
DX: Z87.891 Personal history of nicotine dependence (principal); J44.1 Chronic obstructive pulmonary disease with (acute) exacerbation
CPT/HCPCS: 71271

== ENCOUNTER → 2022-12-20 12:57 | Outpatient (POV) | payer MEDICARE, MEDICAID, SELFPAY ==
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
== END ==
PROVIDERS: Visit Provider Nurse Practitioner Family
DX: M51.36 Other intervertebral disc degeneration, lumbar region; M25.511 Pain in right shoulder; G89.4 Chronic pain syndrome; M47.819 Spondylosis without myelopathy or radiculopathy, site unspecified; M48.02 Spinal stenosis, cervical region; M50.10 Cervical disc disorder with radiculopathy, unspecified cervical region
CPT/HCPCS: 99202; G0463

== ENCOUNTER → 2023-01-03 13:25 | Outpatient (POV) | payer MEDICARE, MEDICAID, SELFPAY ==
--- NOTE | 2023-01-03 13:35 | EXP.PAIN.SOA ---
[facility] Pain Management SOAP Note Subjective:: Patient is a pleasant 72-year-old male who presents today for 2-week follow-up. We are currently treating the patient for degenerative disc disease of cervical and lumbar spine with cervical radiculopathy symptoms, right shoulder pain, chronic pain syndrome. Today he rates his pain a 6 out of 10. Patient denies any new trauma or injury. Patient denies any change location or type of pain he experiences at our last visit we did discuss that he may benefit from injection therapy however the patient states he is still not interested in this option. He states he has had these in the past and they did not provide any additional relief. We also had discussed possibly the spinal cord stimulator or pain pump trial however the patient and his daughter are still unsure whether or not they want to proceed forward with this option. Patient is requesting pain medication at today's visit. His Salvador has been reviewed and is appropriate. Review of Systems: General: No recent weight changes, no fever, no sleep disturbances Respiratory: No cough, no shortness of air, no recurring pulmonary infections Cardiovascular/peripheral vascular: No chest pain, no palpitations, no edema, no shortness of breath Gastrointestinal: No new onset incontinence, normal bowel movements reported Genitourinary: No new onset incontinence Musculoskeletal: Neck pain, low back pain Psychiatric: [Normal mood/affect] Neurological: [Denies weakness in extremities], [denies balance issues] Objective:: Physical Exam: General: Alert and oriented x3, no acute distress, pleasant and cooperative Lungs: Respirations even and unlabored, symmetrical chest expansion Eyes: PERRL Musculoskeletal: Flexion and extension of lumbar [spine] somewhat guarded secondary to pain, [antalgic gait noted] Neurological: Speech clear, no gross sensory deficit Assessment:: degenerative disc disease of cervical and lumbar spine with cervical radiculopathy symptoms, right shoulder pain, chronic pain syndrome Plan:: Patient continues to have significant pain at multiple locations. I have discussed with the patient that I do believe he would benefit from additional injection therapy and/or possible pain pump trial however the patient is not interested in these options. I have explained to the patient that we do not write scheduled medications for new patients and that in future we may do something however at this time we will not that we are more interventional. Patient stated they were requesting oral medications for pain or even possible gabapentin. I have counseled the patient that they are more than welcome to make a additional follow-up if they decide they would like to proceed forward with one of the options we have discussed however they are stating that they will go to a different pain management for meds. Patient has been instructed to contact the clinic with any concerns before the next appointment. Dr. Langston has reviewed this note and agrees with this plan of care. This note was dictated using voice recognition software and make contain errors or omissions. [facility] Disclaimer: The information contained in this section may have been updated after the patient was seen, as this information can be updated by other users. Medical History (Updated 12/20/22 @ 13:43 by Anh Diaz APRN) CAD (coronary artery disease) COPD (chronic obstructive pulmonary disease) Hyperlipidemia Hypertension Family History (Updated 05/17/22 @ 21:59 by Mary Velazquez RN) Other Family history of diabetes mellitus Social History (Updated 05/17/22 @ 22:02 by Mary Velazquez RN) Smoking Status: Current every day smoker tobacco type: cigarettes packs per day: 1 years smoked: 57 quit status: considering quitting second hand exposure: No alcohol intake: never substance use type: denies use current occupational status: retired and other Travel in the last 8 weeks
[2023-01-03 13:38] VITALS: BP 143/95; PULSE 93; RESP 18; O2SAT 97; BMI 21.9
== END ==
PROVIDERS: Visit Provider Nurse Practitioner Family
DX: M50.10 Cervical disc disorder with radiculopathy, unspecified cervical region (principal); M51.36 Other intervertebral disc degeneration, lumbar region; M25.511 Pain in right shoulder; G89.29 Other chronic pain
CPT/HCPCS: 99212; G0463

== ENCOUNTER 2024-02-05 12:43 | Emergency (ER) | payer MEDICARE, MEDICAID, SELFPAY ==
[2024-02-05] VITALS (9 sets, daily range): BP systolic 119–159; BP diastolic 81–90; PULSE 67–85; RESP 16–23; TEMP 36.5–36.8; O2SAT 96–99; BMI 25.0
--- NOTE | 2024-02-05 12:55 | ECG_ITS ---
APPROVED REPORT Exam: Resting ECG HR:82 bpm ECG Measurements Heart Rate 82 AXES [place] 141 P 58 QRSd 104 QRS 46 QT 360 T 74 QTc 398 Conclusion SINUS RHYTHM NORMAL ECG No STEMI Electronically signed by : WILLIAM MARK, 02/06/2024 06:06:43
--- NOTE | 2024-02-05 12:58 | XR_ITS ---
FINAL REPORT CLINICAL HISTORY: sob COMPARISON: 05/17/2022 FINDINGS: A portable view of the chest was obtained. Cardiac and mediastinal silhouettes are within normal limits. The lungs are clear. There is no pleural effusion or pneumothorax. IMPRESSION: No acute process on this portable exam. Reviewed, Interpreted and Dictated by Susan Hayden MD Transcribed by Elaine Torres Authenticated and [facility]
--- NOTE | 2024-02-05 13:07 | CT_ITS ---
FINAL REPORT TECHNIQUE: Axial imaging of the chest is obtained after the administration of contrast. 3-D MIP reformatted images were also obtained and reviewed per PE protocol. This study was performed with techniques to keep radiation doses as low as reasonably achievable, (ALARA). Individualized dose reduction techniques using automated exposure control or adjustment of mA and/or kV according to the patient's size were employed. CLINICAL HISTORY: SOB assymnetric leg swelling COMPARISON: CT low-dose 11/21/2022 FINDINGS: The pulmonary arteries are well filled. There is no evidence of pulmonary embolus. There is no aortic dissection. There is ulcerated plaque disease in the thoracic aorta. Heart size is normal. There is no mediastinal, hilar, or axillary lymphadenopathy. There are multiple noncalcified right lung nodules. A posterior right upper lobe nodule on image 50 of series 5 measures 11 mm and previously measured 7 mm. Other nodules appears stable. There is no consolidation. There is no pleural or pericardial effusion. Limited evaluation of the upper abdomen demonstrate hypodense lesion in the right lobe of the liver which is unchanged and may represent a cyst. There is no acute finding in the upper abdomen. No acute osseous abnormality. IMPRESSION: No evidence of pulmonary embolism or aortic dissection. Ulcerated plaque as described in the thoracic aorta. Multiple lung nodules, 1 increased in size in the right upper lobe. Consider PET-CT in a nonemergent setting. Reviewed, Interpreted and Dictated by Susan Hayden MD Transcribed by Elaine Torres Authenticated and [facility]
--- NOTE | 2024-02-05 13:09 | ED_ITS ---
Discharge Plan Disposition Chief Complaint: Weakness Prescriptions Prescriptions: No Action albuterol sulfate [ProAir HFA] 90 mcg/actuation HFA aerosol inhaler 2 inh inhalation Q6HP PRN (Reason: Shortness Of Breath) rosuvastatin 20 mg tablet 20 mg PO DAILY duloxetine 30 mg capsule,delayed release(DR/EC) 60 mg PO DAILY montelukast 10 mg tablet 10 mg PO DAILY irbesartan 300 mg tablet 75 mg PO DAILY ipratropium-albuterol 0.5 mg-3 mg(2.5 mg base)/3 mL Solution For Nebulization 3 ml inhalation Q4RT 14 Days Qty: 1 0RF meloxicam 7.5 mg tablet 7.5 mg PO DAILY nifedipine 60 mg tablet extended release 24hr 60 mg PO DAILY fluoxetine 20 mg capsule 20 mg PO DAILY varenicline tartrate 0.5 mg (11)- 1 mg (42) tablets,dose pack 1 tab PO DAILY Referrals Follow up/Referrals: Lynette Tripathi APRN [Primary Care Provider] - See instructions Print Language Print Language: Albanian Discharge ED Provider: Rajinder Long [facility] General Chief Complaint: Weakness Stated Complaint: feet/hand/arm swelling and pain Time Seen by Provider: 02/05/24 12:53 History of Present Illness HPI narrative: Patient is a 73-year-old male with past medical history of previous ACS status post stenting, hypertension who presents emergency department for evaluation of leg swelling and shortness of breath. Onset was acute over the last 1 to 2 weeks. Patient has noted swelling on his lower legs however is worse on the left. No sick contacts. No chest pain. No abdominal pain. No other acute complaints at this time. No trauma. Please note that above description of symptoms, in this electronic medical record under categorization of recalled from ER triage doctor by RN are reflective of an initial nursing assessment, however, is not reflective of my full history and physical exam that was personally taken and clarified. Consequentially, this preceding description of symptoms, which may include the patient's categorized chief complaint in the EMR, do not reflect my personal clinical impression, and the ultimate description of history of present illness and patient stated complaints should be deferred to this section of the note. Unless stated otherwise or congruent with this section of the note, additional signs, symptoms, or incongruence should be interpreted as inaccurate with my clinical impression. Related Data Home Medications ?Medication ?Instructions ?Recorded ?Confirmed albuterol sulfate 90 mcg/actuation 2 inh inhalation Q6HP PRN 03/22/22 02/05/24 aerosol inhaler (ProAir HFA) Shortness Of Breath duloxetine 30 mg capsule,delayed 60 mg PO DAILY Pain 03/22/22 02/05/24 release irbesartan 300 mg tablet 75 mg PO DAILY High blood pressure 03/22/22 02/05/24 montelukast 10 mg tablet 10 mg PO DAILY Allergy symptoms 03/22/22 02/05/24 rosuvastatin 20 mg tablet 20 mg PO DAILY Cholesterol 03/22/22 02/05/24 fluoxetine 20 mg capsule 20 mg PO DAILY 02/05/24 02/05/24 meloxicam 7.5 mg tablet 7.5 mg PO DAILY 02/05/24 02/05/24 nifedipine 60 mg tablet,extended 60 mg PO DAILY 02/05/24 02/05/24 release 24 hr varenicline tartrate 0.5 mg (11)-1 1 tab PO DAILY 02/05/24 02/05/24 mg (42) tablets in a dose pack Previous Rx's ?Medication ?Instructions ?Recorded ipratropium 0.5 mg-albuterol 3 mg 3 ml inhalation Q4RT 14 days #1 mL 05/18/22 (2.5 mg base)/3 mL nebulization soln Allergies Allergy/AdvReac Type Severity Reaction Status Date / Time acetaminophen (From Allergy Rash Verified 02/05/24 13:05 Tylenol-Codeine #3) codeine (From Allergy Rash Verified 02/05/24 13:05 Tylenol-Codeine #3) gabapentin Allergy Rash Verified 02/05/24 13:05 PFSH [facility] Disclaimer: The information contained in this section may have been updated after the patient was seen, as this information can be updated by other users. Medical History (Updated 12/20/22 @ 13:43 by Anh Diaz APRN) Hyperlipidemia Hypertension CAD (coronary artery disease) COPD (chronic obstructive pulmonary disease) Family History (Updated 05/17/22 @ 21:59 by Mary Velazquez RN) Other Family history of diabetes mellitus Social History (Updated 05/17/22 @ 22:02 by Mary Velazquez RN) Smoking Status: Current every day smoker tobacco type: cigarettes packs per day: 1 years smoked: 57 quit status: considering quitting second hand exposure: No alcohol intake: never substance use type: denies use current occupational status: retired Travel in the last 8 weeks: None household members: none housing: apartment lives independently: Yes marital status: legally education level: elementary school current occupational exposures/hazards: No caffeine: Yes physical activity: none Have you lived/traveled outside US in past 30 days?: No Contact w/someone who lives/traveled outside US past 30 days?: No Exposure to someone with infectious disease in past 14 days?: No Do you have a fever (greater than 100.4 F or 38 C)?: No Have you tested positive for COVID-19: No Exposed to someone with COVID-19 in past 14 days?: No Do you have a sore throat?: No Do you have a cough?: No Do you have any weakness?: No Do you have any diarrhea?: No Are you experiencing any unusual bleeding?: No Do you have any muscle aches/pain?: No Do you have any abdominal pain?: No Are you experiencing loss of taste or smell?: No Other Medical History Have you received the Flu Vaccine for this season: No Have you received the Pneumonia Vaccine: No ROS Obtained: Yes Systems reviewed as appropriate & no additional complaints except as documented Physical Exam General General appearance: alert and in no apparent distress Head Head exam: atraumatic and normocephalic Eye Eye exam: Present PERRL ENT ENT exam: Present mucous membranes moist Neck Neck exam: Present normal inspection Chest Chest inspection: Present normal inspection and symmetric chest wall rise Respiratory Respiratory exam: Present normal lung sounds bilaterally; Absent respiratory distress Cardiovascular Cardiovascular exam: Present regular rate and normal rhythm Abdominal Exam Abdominal exam: Present soft; Absent tenderness Extremities Exam Extremities exam: Present other (Asymmetric swelling of the lower extremities left greater than right with pitting edema on the left. Palpable dorsal pedal pulses bilaterally) Neurological Exam Neurological exam: Present alert and CN II-XII intact Psychiatric Psychiatric exam: Present normal affect Skin Skin exam: Present warm and dry HEART Score HEART Score HEART Score assessment performed?: Yes History (anamnesis): Slightly suspicious ECG: Normal Age: >65 years Risk factors: Atherosclerosis history Troponin: </= normal limit HEART Score: 4 Critical Care Critical Care Time Critical Care Time: No Medical Decision Making [place] Inquiry Pt receiving controlled substance: No Vital Signs Vital Signs: 02/05/24 13:05 02/05/24 13:40 02/05/24 14:00 Temperature 98.2 F Temperature Source Oral Pulse Rate 76 73 Pulse Rate [Right Brachial] 85 Respiratory Rate 20 20 19 Blood Pressure 136/81 138/90 Blood Pressure [Right Arm] 119/87 Blood Pressure Mean [Right Arm] 97 Blood Pressure Source [Right Arm] Automatic Cuff Blood Pressure Position [Right Arm] Sitting 02 Sat by Pulse Oximetry 97 97 96 Oxygen Delivery Method Room Air Room Air Room Air 02/05/24 14:31 Temperature Temperature Source Pulse Rate Pulse Rate [Right Brachial] Respiratory Rate 23 Blood Pressure 139/85 Blood Pressure [Right Arm] Blood Pressure Mean [Right Arm] Blood Pressure Source [Right Arm] Blood Pressure Position [Right Arm] 02 Sat by Pulse Oximetry 99 Oxygen Delivery Method Room Air Lab Data Labs: Lab Results 02/05/24 13:00: WBC 8.6, RBC 4.37 L, Hgb 13.1 L, Hct 37.7 L, MCV 86.3, MCH 30.0, MCHC 34.7, RDW 13.5, Plt Count 271, MPV 9.1, Neut % (Auto) 54.9, Lymph % (Auto) 31.0, Sabine % (Auto) 7.8, Eos % (Auto) 5.2, Baso % (Auto) 0.9, Neut # (Auto) 4.7, Lymph # (Auto) 2.7, Sabine # (Auto) 0.7, Eos # (Auto) 0.5 H, Baso # (Auto) 0.1, D- Dimer 1.23 H, Sodium 133 L, Potassium 3.8, Chloride 98, Carbon Dioxide 26, Anion Gap 12.8, BUN 28 H, Creatinine 1.90 H, Estimated Creat Clear 36, Estimated GFR 35 L, Est GFR ( Amer) 42 L, Glucose 95, Calcium 9.4, Total Bilirubin 0.6, AST 29, ALT 18, Alkaline Phosphatase 66, Troponin I < 0.01, NT-Pro-B Natriuret Pep 53.2, Total Protein 6.6, Albumin 4.1, Globulin 2.5, Albumin/Globulin Ratio 1.6, HIV Ag/Ab Combo Qual Negative 02/05/24 13:02: SARS-CoV-2 (PCR) Not detected, Influenza A Untype (PCR) Not detected, Influenza Type B (PCR) Not detected 02/05/24 13:10: VBG pH 7.36, VBG pCO2 45.3, VBG pO2 49.7 H, VBG HCO3 24.8, VBG Total CO2 26.2, VBG O2 Saturation 86.8 H, VBG Base Excess -0.7, VBG Lactic Acid 2.4 H 02/05/24 13:00 02/05/24 13:00 Response Orders (Tests/Meds): ED MEDICATIONS Discontinued Medications Generic Name Dose Route Start Last Admin Trade Name Freq PRN Reason Stop Dose Admin Lactated Ringer's 1,000 mls @ 999 mls/hr 02/05/24 13:58 02/05/24 14:03 Lactated Ringer's 1000 Ml Bag IV 02/05/24 14:58 999 mls/hr .Q1H1M ONE Administration Iopamidol 80 ml 02/05/24 13:27 02/05/24 13:30 Iopamidol-370 (76%);100ml Bottle IV 02/05/24 13:28 80 ml ONCE ONE Administration Sodium Chloride 50 ml 02/05/24 13:27 02/05/24 13:30 0.9 % Sodium Chloride 50 Ml Vial IV 02/05/24 13:28 50 ml ONCE ONE Administration Sodium Chloride 10 ml 02/05/24 13:27 02/05/24 13:30 Sodium Chloride 0.9% 10ml Syr (Rad Only) IV 02/05/24 13:28 10 ml ONCE ONE Administration ORDERS Category Date Time Status CT angio chest PE protocol Stat Cat Scan 02/05/24 13:07 Completed POCUS Point of Care (ER Only) Stat Exams 02/05/24 12:58 Completed XR chest portable Stat Exams 02/05/24 12:58 Completed BNP [NT Pro Brain Natriuretic Pep.] Stat Lab 02/05/24 13:00 Completed CBC w/Auto Diff [Complete Blood Count Auto Diff] Stat Lab 02/05/24 13:00 Completed CMP [Comprehensive Metabolic Panel] Stat Lab 02/05/24 13:00 Completed D-Dimer Stat Lab 02/05/24 13:00 Completed HIV Combo Stat Lab 02/05/24 13:00 Completed Hep C Ab with Reflex to RNA Stat Lab 02/05/24 13:00 Received Rapid PCR Covid and Flu A/B Stat Lab 02/05/24 13:02 Completed Trop I [Troponin I] Stat Lab 02/05/24 13:00 Completed Troponin I Q3H Lab 02/05/24 16:15 Ordered Troponin I Q3H Lab 02/05/24 19:15 Ordered VBG [Venous Blood Gas] Stat RT 02/05/24 13:10 Completed CA venous doppler LE LT Stat Y 02/05/24 13:58 Completed ECG Data Tracing #1: ECG Narrative: Independently interpreted by me rate is 82, rhythm is regular, axis is normal, no ST elevation in anatomical contiguous leads, QTc 398 MDM Narrative Medical Decision Narrative: In summary patient is a 73-year-old male with past medical history described above who presents emergency department for evaluation of asymmetric lower extremity swelling and shortness of breath. My concern for pulmonary embolism is high patient will immediately go to CT scanner for CT angio pulmonary embolism protocol. Differential also includes heart failure, asymmetric venous stasis, among others. Workup will be conducted with hematologic labs, CT angio chest, EKG, troponins, VBG, viral swab. Initial workup reviewed by me, hematologic labs have no significant leukocytosis, D-dimer 1.23 CT pulmonary embolism protocol already obtained. Compensated acid-base status on my interpretation, there is SHELBY, viral swab negative. Limited [id number] ultrasound shows suboptimal views however patient has grossly normal ejection fraction no large pericardial effusion and there are no B-lines in the lungs. Given SHELBY and no evidence of volume overload in the lungs it may be that his legs are swollen secondary to medication side effect with his amlodipine or DVT. Crystalloid resuscitation will be undertaken with [address] angio pulmonary embolism protocol informally visualized by me, no large proximal pulmonary embolism. Duplex ultrasound left lower extremity will be obtained. Formal CT read of the chest shows no evidence of pulmonary embolism or aortic dissection, ulcerated plaque in the thoracic aorta with multiple lung nodules consider outpatient PET scan. Preliminary duplex Doppler negative. Images will be pushed to [facility] and expert consultation will be undertaken. This was pending at time of transfer of care to the oncoming physician, Dr. Burgess.
[2024-02-05 13:11] LABS: Coronavirus 19, PCR Not Detected (NotDetected); Influenza A, PCR Not Detected (NotDetected); Influenza B, PCR Not Detected (NotDetected)
[2024-02-05 13:17] LABS: VBG Base Excess -0.7 mmol/L (-2.4-2.3); VBG HCO3 24.8 mmol/L (23-30); VBG Oxygen Saturation 86.8 % (50-70); VBG PCO2 45.3 mmol/L (35-51); VBG PH 7.36 mmol/L (7.31-7.41); VBG PO2 49.7 mmol/L (28-40); VBG Total CO2 26.2 mmol/L (23-27)
[2024-02-05 13:18] LABS: Lactate Venous 2.4 mmol/L (0.4-2.0)
[2024-02-05 13:22] LABS: Basophils # 0.1 K/mm3 (0-0.2); Basophils % 0.9 % (0.1-2.0); Eosinophils # 0.5 K/mm3 (0.0-0.4); Eosinophils % 5.2 % (0.1-12.0); Hematocrit 37.7 % (42.0-52.0); Hemoglobin 13.1 g/dL (14.1-18.0); Lymphocytes # 2.7 K/mm3 (0.7-4.5); Mean Corpuscular HGB Conc 34.7 g/dL (31.8-35.4); Mean Corpuscular Volume 86.3 fl (80-94); Mean Platelet Volume 9.1 fl (7.4-10.4); Monocytes # 0.7 K/mm3 (0.1-1.0); Monocytes % 7.8 % (1.7-9.3); Neutrophils # 4.7 K/mm3 (1.8-7.8); Neutrophils % 54.9 % (37.0-80.0); Platelet Count 271 K/mm3 (142-424); Red Blood Count 4.37 M/mm3 (4.60-6.20); Red Cell Distribution Width 13.5 % (11.5-17.5); White Blood Count 8.6 K/mm3 (4.8-10.8)
[2024-02-05 13:24] LABS: Alanine Aminotransferase 18 U/L (12-78); Albumin Level 4.1 g/dl (3.5-5.0); Albumin/Globulin Ratio 1.6 (1.1-1.8); Alkaline Phosphatase 66 U/L (38-126); Anion Gap 12.8 mEq/L (5-15); Aspartate Amino Transferase 29 U/L (17-59); Bilirubin,Total 0.6 mg/dl (0.2-1.3); Blood Urea Nitrogen 28 mg/dl (9-20); Calcium 9.4 mg/dl (8.4-10.2); Carbon Dioxide 26 mmol/L (22.0-30.0); Chloride 98 mmol/L (98-107); Creatinine Clearance Estimated 36 mL/min (50-200); Estimated Glomerular Filt Rate 35 ml/min (>60); GFR (African American) 42 ML/MIN (>60); Globulin 2.5 g/dL (1.3-3.2); Glucose 95 mg/dl (74-100); Potassium 3.8 mmoL/L (3.5-5.1); Sodium 133 mmol/L (136-145); Total Protein,Serum 6.6 g/dl (6.3-8.2)
[2024-02-05 13:30] LABS: D-Dimer 1.23 ug/mL (0.0-0.5)
[2024-02-05] MEDS: 0.9 % SODIUM CHLORIDE 50 ML VIAL IV (13:30)
[2024-02-05] MEDS: SODIUM CHLORIDE 0.9% 10ML SYR (RAD ONLY) 10 ML IV (13:30)
[2024-02-05] MEDS: IOPAMIDOL-370 (76%);100ML BOTTLE 80 ML IV (13:30)
[2024-02-05 13:33] LABS: NT Pro Brain Natriuretic Pep. 53.2 pg/mL (0-125)
--- NOTE | 2024-02-05 13:58 | CA_ITS ---
FINAL REPORT CLINICAL HISTORY: HTN, HLD, CAD, COPD, smoker. Patient states he has LLE edema x 1-2 weeks. Denies trauma. FINDINGS: DUPLEX VENOUS SONOGRAPHY OF THE LEFT LOWER EXTREMITY Multiple transverse and longitudinal scans were performed of the femoropopliteal deep venous system, with augmentation and compression maneuvers. HISTORY: Edema FINDINGS: Normal phasic flow was noted in the visualized deep venous system. No intraluminal increased echogenicity is noted to suggest thrombus. There is normal compression and augmentation of the venous structures. No abnormal venous collaterals are seen. IMPRESSION: No evidence of deep venous thrombosis of the left lower extremity. Reviewed, Interpreted and Dictated by Susan Hayden MD Transcribed by Karina Pak Authenticated and [facility]
[2024-02-05] MEDS: LACTATED RINGERS 1000ML 1,000 ML 999 ML IV (14:03)
[2024-02-05 14:08] LABS: Troponin I < 0.01 ng/ml (0.00-0.034)
[2024-02-05 14:26] LABS: HIV Combo NEGATIVE (Negative)
--- NOTE | 2024-02-05 15:03 | PC.NURSE ---
Called [facility] per Dr. Long for poss transfer for ulcerated plaque in the aorta. stated that they would give us a call back.
[2024-02-05] MEDS: ASPIRIN 81MG CHEWABLE TABLET 81 MG PO (16:36)
[2024-02-05 17:18] LABS: Reflex Lactic Add Lactic Reflex
[2024-02-08 05:53] LABS: HCV Ab Non Reactive (Non Reactive)
== END 2024-02-05 17:10 | disposition home or self-care (01) ==
PROVIDERS: Emergency Medicine; Emergency Provider Emergency Medicine; PCP Nurse Practitioner Family
DX: I70.0 Atherosclerosis of aorta (principal); N17.9 Acute kidney failure, unspecified; M79.89 Other specified soft tissue disorders; R22.43 Localized swelling, mass and lump, lower limb, bilateral; R06.02 Shortness of breath
CPT/HCPCS: 71045; 71275; 80053; 82803; 83880; 84484; 85025; 85378; 86803; 87389; 87636; 93005; 93971; 96360; 99285; J7120; Q9967

== ENCOUNTER 2024-05-08 02:03 | Emergency (ER) | payer MEDICARE, MEDICAID, SELFPAY ==
[2024-05-08] VITALS (16 sets, daily range): BP systolic 107–175; BP diastolic 66–103; PULSE 71–97; RESP 14–18; TEMP 36.4–36.7; O2SAT 94–100; BMI 22.1
--- NOTE | 2024-05-08 02:05 | CT_ITS ---
PROCEDURE INFORMATION: Exam: CT Lumbar Spine Without Contrast Exam date and time: 05/08/2024 2:35 AM Age: 74 years old Clinical indication: Injury or trauma; Additional info: Trauma, critical injury suspected TECHNIQUE: Imaging protocol: Computed tomography of the lumbar spine without contrast. Radiation optimization: All CT scans at this facility use at least one of these dose optimization techniques: automated exposure control; mA and/or kV adjustment per patient size (includes targeted exams where dose is matched to clinical indication); or iterative reconstruction. COMPARISON: MR LUMBAR SPINE WO CON 02/22/2022 1:43 PM FINDINGS: Bones/joints: No acute fracture. Normal alignment. No vertebral compression fracture. No dislocation. Mild diffuse degenerative disc change greatest at L4-L5-S1 where disc bulges are evident. Degenerative endplate change and sclerosis superior margin L5, and to a lesser extent inferior margin L4 new since the study of 02/22/2022. Vasculature: Infrarenal abdominal aortic aneurysm, incompletely imaged, measuring at least 3.5 cm in diameter. Soft tissues: Unremarkable. IMPRESSION: 1. No evidence of acute traumatic injury. 2. Destructive changes and sclerosis about the L4-L5 level. This is not seen on prior MRI. Correlate with laboratory values and MRI as necessary to exclude inflammatory process such as diskitis.
--- NOTE | 2024-05-08 02:05 | CT_ITS ---
PROCEDURE INFORMATION: Exam: CTA Chest With Contrast Exam date and time: 05/08/2024 2:44 AM Age: 74 years old Clinical indication: Injury or trauma; Additional info: Trauma, critical injury suspected TECHNIQUE: Imaging protocol: Computed tomographic angiography of the chest with contrast. Exam focused on the arteries. 3D rendering (Not supervised by radiologist): MIP and/or 3D reconstructed images were created by the technologist. Radiation optimization: All CT scans at this facility use at least one of these dose optimization techniques: automated exposure control; mA and/or kV adjustment per patient size (includes targeted exams where dose is matched to clinical indication); or iterative reconstruction. Contrast material: ISOVUE; Contrast volume: 80 ml; Contrast route: INTRAVENOUS (IV); COMPARISON: CT ANGIO CHEST PE PROTOCOL 02/05/2024 1:25 PM FINDINGS: Pulmonary arteries: Normal. No pulmonary emboli. Aorta: 41 mm ascending aortic aneurysm. Lungs: Unremarkable. No consolidation. No masses. Pleural spaces: Unremarkable. No pneumothorax. No pleural effusion. Heart: Unremarkable. No cardiomegaly. No pericardial effusion. Esophagus: Thickened dilated and patulous esophagus. Lymph nodes: Unremarkable. No enlarged lymph nodes. Bones/joints: Unremarkable. No acute fracture. Soft tissues: Unremarkable. IMPRESSION: No acute traumatic injury. Ascending aortic aneurysm recommend annual follow-up. Thickened dilated and patulous esophagus, consider esophagitis.
--- NOTE | 2024-05-08 02:05 | CT_ITS ---
PROCEDURE INFORMATION: Exam: CT Cervical Spine Without Contrast Exam date and time: 05/08/2024 2:28 AM Age: 74 years old Clinical indication: Injury or trauma; Additional info: Trauma, critical injury suspected TECHNIQUE: Imaging protocol: Computed tomography of the cervical spine without contrast. Radiation optimization: All CT scans at this facility use at least one of these dose optimization techniques: automated exposure control; mA and/or kV adjustment per patient size (includes targeted exams where dose is matched to clinical indication); or iterative reconstruction. COMPARISON: CT CERVICAL SPINE WO CON 05/17/2022 6:55 PM FINDINGS: Vertebrae: No acute fracture. Stable alignment. Facet osteoarthrosis within cervical spine. Degenerative changes of atlantodental articulation. Laminectomies at C4, C5, C6 levels. Posterior rods and pedicle screws from C4 to C7 levels, stable in appearance. Fusion across C4-C5, C5-C6 levels. Moderate to severe degenerative disc disease at C6-C7 level. Lungs: Unremarkable as visualized. Vasculature: Mild atherosclerotic disease. Soft tissues: Unremarkable. IMPRESSION: No fracture.
--- NOTE | 2024-05-08 02:05 | CT_ITS ---
PROCEDURE INFORMATION: Exam: CT Thoracic Spine Without Contrast Exam date and time: 05/08/2024 2:33 AM Age: 74 years old Clinical indication: Injury or trauma; Additional info: Trauma, critical injury suspected TECHNIQUE: Imaging protocol: Computed tomography of the thoracic spine without contrast. Radiation optimization: All CT scans at this facility use at least one of these dose optimization techniques: automated exposure control; mA and/or kV adjustment per patient size (includes targeted exams where dose is matched to clinical indication); or iterative reconstruction. COMPARISON: CT CERVICAL SPINE WO CON 05/08/2024 2:28 AM FINDINGS: Bones/joints: No acute fracture. Normal alignment. No significant disc bulge or herniation. No severe spinal canal stenosis. No significant neural foraminal narrowing. Cervical hardware, see dedicated cervical spine CT. Soft tissues: Unremarkable. Lungs: patchy ground-glass opacity right lung apex. IMPRESSION: No acute traumatic injury seen involving the thoracic spine.
--- NOTE | 2024-05-08 02:05 | CT_ITS ---
PROCEDURE INFORMATION: Exam: CTA Neck With Contrast Exam date and time: 05/08/2024 2:38 AM Age: 74 years old Clinical indication: Injury or trauma; Additional info: Trauma, critical injury suspected TECHNIQUE: Imaging protocol: Computed tomographic angiography of the neck with contrast. Exam focused on the cervical segments of the vasculature. 3D rendering (Not supervised by radiologist): MIP and/or 3D reconstructed images were created by the technologist. Radiation optimization: All CT scans at this facility use at least one of these dose optimization techniques: automated exposure control; mA and/or kV adjustment per patient size (includes targeted exams where dose is matched to clinical indication); or iterative reconstruction. Contrast material: ISOVUE; Contrast volume: 80 ml; Contrast route: INTRAVENOUS (IV); COMPARISON: CT CERVICAL SPINE WO CON 05/08/2024 2:28 AM FINDINGS: Right common carotid artery: No stenosis. No dissection or occlusion. Right internal carotid artery: No stenosis of the extracranial segment. No dissection or occlusion. Right external carotid artery: No occlusion or stenosis of the origin. Left common carotid artery: See Aorta finding. Left internal carotid artery: Mild atherosclerosis of the left ICA. Left external carotid artery: No occlusion or stenosis of the origin. Right vertebral artery: No stenosis. No dissection or occlusion. Left vertebral artery: No stenosis. No dissection or occlusion. Aorta: Moderate atherosclerosis of the aortic arch.Mild atherosclerotic changes of the left carotid bulb. Soft tissues: Normal. No significant soft tissue swelling. Bones/joints: DJD. Posterior cervical fixation hardware. Status post multilevel posterior decompression. Lungs: Emphysematous changes of the upper lung marin. IMPRESSION: No acute findings. Atherosclerotic disease without significant stenosis. REFERENCES: NASCET CRITERIA. The degree of stenosis in the cervical segment of the internal carotid artery is based on NASCET criteria. Normal is no stenosis. Mild is less than 50% stenosis. Moderate is 50-69% stenosis. Severe is 70% to 99% stenosis. Total occlusion is no detectable patent lumen.
--- NOTE | 2024-05-08 02:05 | CT_ITS ---
PROCEDURE INFORMATION: Exam: CTA Head With Contrast, Arteriography Exam date and time: 05/08/2024 2:38 AM Age: 74 years old Clinical indication: Injury or trauma; Additional info: Trauma, critical injury suspected TECHNIQUE: Imaging protocol: Computed tomographic angiography of the head with contrast. Exam focused on the arteries. 3D rendering (Not supervised by radiologist): MIP and/or 3D reconstructed images were created by the technologist. Radiation optimization: All CT scans at this facility use at least one of these dose optimization techniques: automated exposure control; mA and/or kV adjustment per patient size (includes targeted exams where dose is matched to clinical indication); or iterative reconstruction. Contrast material: ISOVUE; Contrast volume: 80 ml; Contrast route: INTRAVENOUS (IV); COMPARISON: CT HEAD/BRAIN WO CON 05/08/2024 2:26 AM FINDINGS: ANTERIOR CIRCULATION: Right internal carotid artery: Intracranial segment is patent with no significant stenosis. No aneurysm. Right middle cerebral artery: No occlusion or significant stenosis. No aneurysm. Right anterior cerebral artery: No occlusion or significant stenosis. No aneurysm. Left internal carotid artery: Intracranial segment is patent with no significant stenosis. No aneurysm. Left middle cerebral artery: No occlusion or significant stenosis. No aneurysm. Left anterior cerebral artery: No occlusion or significant stenosis. No aneurysm. POSTERIOR CIRCULATION: Right vertebral artery: No occlusion or significant stenosis. No aneurysm. Left vertebral artery: No occlusion or significant stenosis. No aneurysm. Basilar artery: No occlusion or significant stenosis. No aneurysm. Right posterior cerebral artery: origin of the right MUSHROOM CULTIVATOR. Left posterior cerebral artery: origin of the left MUSHROOM CULTIVATOR. Veins: Dural venous sinuses are intact. Brain: No definite mass, mass effect, or midline shift. Cerebral ventricles: No ventriculomegaly. Bones/joints: Deformities of the nasal bones. Soft tissues: Unremarkable. IMPRESSION: 1. No acute vascular findings. 2. Deformities of the nasal bones. Please see the maxillofacial CT.
--- NOTE | 2024-05-08 02:05 | CT_ITS ---
PROCEDURE INFORMATION: Exam: CT Head Without Contrast Exam date and time: 05/08/2024 2:26 AM Age: 74 years old Clinical indication: Injury or trauma; Additional info: Trauma, critical injury suspected TECHNIQUE: Imaging protocol: Computed tomography of the head without contrast. Radiation optimization: All CT scans at this facility use at least one of these dose optimization techniques: automated exposure control; mA and/or kV adjustment per patient size (includes targeted exams where dose is matched to clinical indication); or iterative reconstruction. COMPARISON: CT HEAD/BRAIN WO CON 05/17/2022 6:52 PM FINDINGS: Brain: Moderate atrophy. No intracranial hemorrhage. No mass. Multiple scattered foci of decreased attenuation within periventricular/subcortical white matter. No edema. Cerebral ventricles: No hydrocephalus. Mastoid air cells: No significant effusion. Bones: No calvarial fracture. Soft tissues: LEFT frontal soft tissue swelling. IMPRESSION: 1. No intracranial hemorrhage. 2. Probable chronic microvascular ischemic changes. 3. See facial bone CT report for additional details.
--- NOTE | 2024-05-08 02:05 | CT_ITS ---
PROCEDURE INFORMATION: Exam: CTA Abdomen and Pelvis With Contrast Exam date and time: 05/08/2024 2:43 AM Age: 74 years old Clinical indication: Injury or trauma; Additional info: Trauma, critical injury suspected TECHNIQUE: Imaging protocol: Computed tomographic angiography of the abdomen and pelvis with contrast. Exam focused on the arteries. 3D rendering (Not supervised by radiologist): MIP and/or 3D reconstructed images were created by the technologist. Radiation optimization: All CT scans at this facility use at least one of these dose optimization techniques: automated exposure control; mA and/or kV adjustment per patient size (includes targeted exams where dose is matched to clinical indication); or iterative reconstruction. Contrast material: ISOVUE; Contrast volume: 80 ml; Contrast route: INTRAVENOUS (IV); COMPARISON: CT ABDOMEN PELVIS W CON 05/09/2020 9:13 PM FINDINGS: Esophagus: Dilated patulous and thickened esophagus. Aorta: Infrarenal abdominal aortic aneurysm 3.9 cm. Celiac trunk and mesenteric arteries: No occlusion or significant stenosis. Renal arteries: No occlusion or significant stenosis. 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 Left iliac arteries: Moderate atherosclerotic attenuation left external iliac artery. Liver: Small low-density hepatic lesions possibly cysts. Gallbladder and biliary ducts: Unremarkable. No calcified stones. No ductal dilation. Pancreas: Unremarkable. No mass. No ductal dilation. Spleen: Unremarkable. No splenomegaly. Adrenal glands: Unremarkable. No mass. Kidneys and ureters: Unremarkable. No solid mass. No hydronephrosis. Stomach and bowel: Unremarkable. No obstruction. No mucosal thickening. Appendix: No evidence of appendicitis. Intraperitoneal space: Unremarkable. No free air. No significant fluid collection. Lymph nodes: Unremarkable. No enlarged lymph nodes. Urinary bladder: Unremarkable. No mass. Reproductive: Unremarkable as visualized. Bones/joints: Sclerosis and irregularity about the L4-L5 level of the spine, correlate with lumbar CT dictation. Soft tissues: Unremarkable. IMPRESSION: Chronic findings as above. No acute traumatic injury seen. Atherosclerosis aorta with aneurysm and mural plaque. No acute aortic injury appreciated.
--- NOTE | 2024-05-08 02:07 | CT_ITS ---
PROCEDURE INFORMATION: Exam: CT Maxillofacial Without Contrast Exam date and time: 05/08/2024 2:30 AM Age: 74 years old Clinical indication: Injury or trauma; Additional info: Facial trauma TECHNIQUE: Imaging protocol: Computed tomography of the face without contrast. Radiation optimization: All CT scans at this facility use at least one of these dose optimization techniques: automated exposure control; mA and/or kV adjustment per patient size (includes targeted exams where dose is matched to clinical indication); or iterative reconstruction. COMPARISON: CT HEAD/BRAIN WO CON 05/17/2022 FINDINGS: Paranasal sinuses: Scattered minimal to mild mucosal thickening. Trace air-fluid level within LEFT maxillary sinus. Orbital cavities: Unremarkable as visualized. Bones: No acute fracture. Deformity of LEFT nasal bone, chronic. Degenerative changes of cervical spine. Soft tissues: LEFT periorbital soft tissue swelling. Tiny calcification or foreign body along LEFT periorbital region, stable. IMPRESSION: No fracture.
[2024-05-08 02:21] LABS: POC Glucose,Bedside 99 (70-110)
[2024-05-08] MEDS: TET/DIPHTH/PERT-ADULT 0.5ML SYRINGE 0.5 ML IM (02:34)
[2024-05-08] MEDS: ONDANSETRON 4MG/2ML VIAL 4 MG IV (02:35)
[2024-05-08] MEDS: IOPAMIDOL-370 (76%);100ML BOTTLE 160 ML IV (03:00)
[2024-05-08] MEDS: 0.9 % SODIUM CHLORIDE 50 ML VIAL IV (03:00)
[2024-05-08] MEDS: SODIUM CHLORIDE 0.9% 10ML SYR (RAD ONLY) 10 ML IV (03:00)
[2024-05-08 03:25] LABS: Activated Partial Thrombo Time 32.3 seconds (22.8-30.6); INR 0.97 (0.9-1.1); Prothrombin Time 10.9 seconds (10.1-12.5)
[2024-05-08 03:42] LABS: Microscopic, Urine URINE MICROSCOPIC (MICROSCOPIC)
[2024-05-08 03:45] LABS: Appearance,Urine CLEAR (Clear); Bilirubin,Urine Negative (Negative); Blood, Urine 1+ (Negative); Color,Urine YELLOW (Yellow); Glucose,Urine (UA) Negative (Negative); Ketones,Urine Negative (Negative); Leukocyte Esterase,Urine Negative (Negative); Nitrate,Urine Negative (Negative); Protein,Urine Negative (Negative); Specific Gravity, Urine <= 1.005 (1.005-1.030); Urobilinogen,Urine 0.2 EU/dl (0.2)
[2024-05-08 03:57] LABS: Basophils # 0.1 K/mm3 (0-0.2); Basophils % 0.6 % (0.1-2.0); Eosinophils # 0.1 K/mm3 (0.0-0.4); Eosinophils % 1.4 % (0.1-12.0); Hematocrit 30.5 % (42.0-52.0); Hemoglobin 10.2 g/dL (14.1-18.0); Lymphocytes # 2.1 K/mm3 (0.7-4.5); Mean Corpuscular HGB Conc 33.4 g/dL (31.8-35.4); Mean Corpuscular Hemoglobin 29.2 pg (27.0-31.2); Mean Corpuscular Volume 87.4 fl (80-94); Mean Platelet Volume 9.4 fl (7.4-10.4); Monocytes # 0.6 K/mm3 (0.1-1.0); Monocytes % 6.9 % (1.7-9.3); Neutrophils # 5.1 K/mm3 (1.8-7.8); Platelet Count 247 K/mm3 (142-424); Red Blood Count 3.49 M/mm3 (4.60-6.20); Red Cell Distribution Width 12.4 % (11.5-17.5)
[2024-05-08 04:31] LABS: Ethyl Alcohol 184 mg/dl (0-10)
[2024-05-08 04:32] LABS: Alanine Aminotransferase 14 U/L (12-78); Albumin Level 2.5 g/dl (3.5-5.0); Alkaline Phosphatase 70 U/L (38-126); Anion Gap 11.5 mEq/L (5-15); Aspartate Amino Transferase 19 U/L (17-59); Bilirubin,Total 0.2 mg/dl (0.2-1.3); Blood Urea Nitrogen 23 mg/dl (9-20); Calcium 7.1 mg/dl (8.4-10.2); Carbon Dioxide 23 mmol/L (22.0-30.0); Chloride 92 mmol/L (98-107); Creatinine Clearance Estimated 49 mL/min (50-200); Estimated Glomerular Filt Rate 54 ml/min (>60); GFR (African American) 65 ML/MIN (>60); Globulin 2.6 g/dL (1.3-3.2); Glucose 93 mg/dl (74-100); Potassium 3.5 mmoL/L (3.5-5.1); Sodium 123 mmol/L (136-145); Total Protein,Serum 5.1 g/dl (6.3-8.2)
[2024-05-08] MEDS: PROCHLORPERAZINE 10MG/2ML VIAL 10 MG IV (04:35)
[2024-05-08 04:44] LABS: Benzodiazepines Screen,Urine Negative ng/ml (<200)
[2024-05-08 04:45] LABS: Amphetamine/Metha Screen,Urine Negative ng/ml (<1000); Barbiturates Screen,Urine Negative ng/ml (<200)
[2024-05-08 04:46] LABS: Cannabinoid Screen,Urine Negative ng/ml (<50)
[2024-05-08 04:47] LABS: Cocaine Screen,Urine Negative ng/ml (<300)
[2024-05-08 04:48] LABS: Methadone Screen,Urine Negative ng/ml (<300)
[2024-05-08 04:49] LABS: Opiate Screen,Urine Negative ng/ml (<300)
[2024-05-08 04:50] LABS: Phencyclidine Screen,Urine Negative ng/ml (<25)
--- NOTE | 2024-05-08 04:59 | [facility].EDGENADL ---
Discharge Plan Disposition Patient Disposition: Home, Self-Care Prescriptions Prescriptions: No Action albuterol sulfate [ProAir HFA] 90 mcg/actuation HFA aerosol inhaler 2 inh inhalation Q6HP PRN (Reason: Shortness Of Breath) rosuvastatin 20 mg tablet 20 mg PO DAILY duloxetine 30 mg capsule,delayed release(DR/EC) 60 mg PO DAILY montelukast 10 mg tablet 10 mg PO DAILY irbesartan 300 mg tablet 75 mg PO DAILY ipratropium-albuterol 0.5 mg-3 mg(2.5 mg base)/3 mL Solution For Nebulization 3 ml inhalation Q4RT 14 Days Qty: 1 0RF meloxicam 7.5 mg tablet 7.5 mg PO DAILY nifedipine 60 mg tablet extended release 24hr 60 mg PO DAILY fluoxetine 20 mg capsule 20 mg PO DAILY varenicline tartrate 0.5 mg (11)- 1 mg (42) tablets,dose pack 1 tab PO DAILY Referrals Follow up/Referrals: Provider,Referral, MD [Primary Care Provider] - See instructions Activity Restrictions/Add. Instructions Additional Instructions/Restrictions: Please follow-up with for surveillance of your aortic aneurysm. Please keep the clean, dry and covered. Please let soapy water run over in the shower once a day. Monitor for signs of infection. The sutures are absorbable and do not need to be removed. Please follow-up with your primary care provider. Please return to the emergency department if you develop any new or worsening symptoms or become concerned for your health. Clinical Impressions Clinical Impression: Complex laceration of face, Abdominal pain, Alcohol intoxication delirium, Fall, AAA (abdominal aortic aneurysm), Hyponatremia Print Language Print Language: Thai Discharge ED Provider: Jefe Burgess General Adult HPI <Antonio Du MD - Last Filed: 05/08/24 07:26> General Chief complaint: Fall Stated complaint: intoxication Time Seen by Provider: 05/08/24 02:05 Mode of Arrival: EMS Source of Information: EMS Description of Symptoms (Recalled from ER Triage Doc. by RN): PT HERE VIA EMS FROM HOME C/O FALL, UNKNOWN TIME DOWN. +ETOH, L SIDED FOREHEAD LAC NOTED. PT ALERT HOWEVER NOT ORIENTED. C-COLLAR IN PLACE. History of Present Illness HPI narrative: 74-year-old male with history of of aortic aneurysm, COPD, hypertension presents for fall, alcohol intoxication, facial laceration. The circumstances surrounding the events of the evening are unclear. EMS was called to the house but the people at the house did not really know what was going on. Patient was found in bed by EMS but had a large laceration above the left eyebrow. Patient is oriented to self only and unable to provide any significant history. Patient smells of alcohol. Related Data Home Medications ?Medication ?Instructions ?Recorded ?Confirmed albuterol sulfate 90 mcg/actuation 2 inh inhalation Q6HP PRN 03/22/22 02/05/24 aerosol inhaler (ProAir HFA) Shortness Of Breath duloxetine 30 mg capsule,delayed 60 mg PO DAILY Pain 03/22/22 02/05/24 release irbesartan 300 mg tablet 75 mg PO DAILY High blood pressure 03/22/22 02/05/24 montelukast 10 mg tablet 10 mg PO DAILY Allergy symptoms 03/22/22 02/05/24 rosuvastatin 20 mg tablet 20 mg PO DAILY Cholesterol 03/22/22 02/05/24 fluoxetine 20 mg capsule 20 mg PO DAILY 02/05/24 02/05/24 meloxicam 7.5 mg tablet 7.5 mg PO DAILY 02/05/24 02/05/24 nifedipine 60 mg tablet,extended 60 mg PO DAILY 02/05/24 02/05/24 release 24 hr varenicline tartrate 0.5 mg (11)-1 1 tab PO DAILY 02/05/24 02/05/24 mg (42) tablets in a dose pack Previous Rx's ?Medication ?Instructions ?Recorded ipratropium 0.5 mg-albuterol 3 mg 3 ml inhalation Q4RT 14 days #1 mL 05/18/22 (2.5 mg base)/3 mL nebulization soln Allergies Allergy/AdvReac Type Severity Reaction Status Date / Time acetaminophen (From Allergy Rash Verified 02/05/24 13:05 Tylenol-Codeine #3) codeine (From Allergy Rash Verified 02/05/24 13:05 Tylenol-Codeine #3) gabapentin Allergy Rash Verified 02/05/24 13:05 [facility] <Antonio Du MD - Last Filed: 05/08/24 07:26> [facility] Disclaimer: The information contained in this section may have been updated after the patient was seen, as this information can be updated by other users. Medical History (Updated 05/08/24 @ 06:56 by Antonio Du MD) Hyperlipidemia Hypertension CAD (coronary artery disease) COPD (chronic obstructive pulmonary disease) Family History (Updated 05/17/22 @ 21:59 by Mary Velazquez, RN) Other Family history of diabetes mellitus Social History (Updated 05/17/22 @ 22:02 by Mary Velazquez, RN) Smoking Status: Current every day smoker tobacco type: cigarettes packs per day: 1 years smoked: 57 quit status: considering quitting second hand exposure: No alcohol intake: never substance use type: denies use current occupational status: retired Travel in the last 8 weeks: None household members: none housing: apartment lives independently: Yes marital status: legally education level: elementary school current occupational exposures/hazards: No caffeine: Yes physical activity: none Other Medical History Have you received the Flu Vaccine for this season: No Have you received the Pneumonia Vaccine: No <Antonio Du MD - Last Filed: 05/08/24 07:26> ROS Obtained: Yes All systems reviewed & no additional complaints except as documented Physical Exam <Antonio Du MD - Last Filed: 05/08/24 07:26> General General appearance: appears intoxicated Comment: Awake, intermittently moaning Head Head exam: normocephalic and other (Large irregular laceration over the left eyebrow) Eye Eye exam: Present normal appearance, PERRL and EOMI; Absent conjunctival redness ENT ENT exam: Present normal oropharynx and normal external ear exam Neck Neck exam: Present normal inspection and full ROM; Absent tenderness Chest Chest inspection: Present symmetric chest wall rise; Absent normal inspection (Bruising to the right chest wall) or tenderness Respiratory Respiratory exam: Present normal lung sounds bilaterally; Absent respiratory distress Cardiovascular Cardiovascular exam: Present regular rate and normal rhythm Abdominal Exam Abdominal exam: Present soft and tenderness; Absent distention or guarding Comment: Suprapubic fullness noted Extremities Exam Extremities exam: Present normal inspection; Absent edema or joint swelling Back Exam Back exam: Present normal inspection; Absent tenderness Neurological Exam Neurological exam: Present other (Awake, partially oriented, slurred speech consistent with intoxication, moving all extremities) Psychiatric Psychiatric exam: Present other Skin Skin exam: Present warm, dry and normal color Lymphatic Lymphatic Findings: no adenopathy Medical Decision Making <Antonio Du MD - Last Filed: 05/08/24 07:26> Medical Records Medical records reviewed: Yes I reviewed the patient's medical records. Screening: Per USPSTF and CDC recommendations, given the prevalence of disease in our region, it is our hospital?s policy to screen for HIV and viral Hepatitis for all patients aged 18 and over and those with ongoing risk factors. [place] Inquiry Pt receiving controlled substance: No [place] was queried for this patient: No Vital Signs: 05/08/24 02:15 05/08/24 02:21 05/08/24 04:00 Temperature 97.6 F Temperature Source Oral Pulse Rate 97 H 87 Pulse Rate [Apical] 84 Respiratory Rate 18 18 Blood Pressure 168/81 H 120/79 Blood Pressure [Right Arm] 175/103 H Blood Pressure Mean 92 Blood Pressure Mean [Right Arm] 127 02 Sat by Pulse Oximetry 95 96 95 Oxygen Delivery Method Room Air Room Air Room Air 05/08/24 04:09 05/08/24 04:30 05/08/24 05:00 Temperature Temperature Source Pulse Rate 80 95 H 85 Pulse Rate [Apical] Respiratory Rate 18 Blood Pressure 120/79 107/73 L 115/69 Blood Pressure [Right Arm] Blood Pressure Mean 86 76 Blood Pressure Mean [Right Arm] 02 Sat by Pulse Oximetry 98 96 96 Oxygen Delivery Method Room Air 05/08/24 05:30 05/08/24 06:00 05/08/24 07:00 Temperature Temperature Source Pulse Rate 84 81 80 Pulse Rate [Apical] Respiratory Rate Blood Pressure 113/73 129/81 122/66 Blood Pressure [Right Arm] Blood Pressure Mean 86 97 Blood Pressure Mean [Right Arm] 02 Sat by Pulse Oximetry 97 94 L 97 Oxygen Delivery Method Room Air 05/08/24 07:30 05/08/24 08:01 05/08/24 08:30 Temperature Temperature Source Pulse Rate 85 91 H 79 Pulse Rate [Apical] Respiratory Rate Blood Pressure 135/69 158/83 H 121/69 Blood Pressure [Right Arm] Blood Pressure Mean Blood Pressure Mean [Right Arm] 02 Sat by Pulse Oximetry 96 98 100 Oxygen Delivery Method Room Air Room Air Room Air 05/08/24 09:00 Temperature Temperature Source Pulse Rate 76 Pulse Rate [Apical] Respiratory Rate Blood Pressure 133/77 Blood Pressure [Right Arm] Blood Pressure Mean Blood Pressure Mean [Right Arm] 02 Sat by Pulse Oximetry 99 Oxygen Delivery Method Room Air Lab Data Lab results reviewed: Yes I reviewed the patient's lab results. Lab Results 05/08/24 02:14: POC Glucose 99 05/08/24 02:56: WBC 8.0, RBC 3.49 L, Hgb 10.2 L, Hct 30.5 L, MCV 87.4, MCH 29.2, MCHC 33.4, RDW 12.4, Plt Count 247, MPV 9.4, Neut % (Auto) 64.0, Lymph % (Auto) 26.0, [place] % (Auto) 6.9, Eos % (Auto) 1.4, Baso % (Auto) 0.6, Neut # (Auto) 5.1, Lymph # (Auto) 2.1, [place] # (Auto) 0.6, Eos # (Auto) 0.1, Baso # (Auto) 0.1, PT 10.9, INR 0.97, APTT 32.3 H, Sodium 123 L, Potassium 3.5, Chloride 92 L, Carbon Dioxide 23, Anion Gap 11.5, BUN 23 H, Creatinine 1.30 H, Estimated Creat Clear 49, Estimated GFR 54 L, Est GFR ( Amer) 65, Glucose 93, Calcium 7.1 L, Total Bilirubin 0.2, AST 19, ALT 14, Alkaline Phosphatase 70, Total Protein 5.1 L, Albumin 2.5 L, Globulin 2.6, Albumin/Globulin Ratio 1.0 L, Plasma/Serum Alcohol 184 H 05/08/24 03:37: Urine Color Yellow, Urine Appearance Clear, Urine pH 6.0, Ur Specific [place] <= 1.005, Urine Protein Negative, Urine Glucose (UA) Negative, Urine Ketones Negative, Urine Blood 1+ A, Urine Nitrate Negative, Urine Bilirubin Negative, Urine Urobilinogen 0.2, Ur Leukocyte Esterase Negative, Ur Squamous Epith Cells 3-5, Urine Opiates Screen Negative, Urine Methadone Screen Negative, Ur Barbituates Screen Negative, Ur Phencyclidine Scrn Negative, Ur Amphetamines Screen Negative, U Benzodiazepines Scrn Negative, Urine Cocaine Screen Negative, U Marijuana (THC) Screen Negative 05/08/24 05:50: Sodium 126 L 05/08/24 08:46: Sodium 130 L 05/08/24 02:56 05/08/24 08:46 Orders (Tests/Meds): ED MEDICATIONS Generic Name Dose Route Start Last Admin Trade Name Benjaminq PRN Reason Stop Dose Admin Sodium Chloride 10 ml 05/08/24 02:05 Sodium Chloride 0.9% 10ml Flush Syringe IV 06/07/24 02:04 NEEDED PRN Maintain IV Site Tetanus/Reduced Diphtheria/Acell Pertussis 0.5 ml 05/08/24 02:15 05/08/24 02:34 Tet/Diphth/Pert-Adult 0.5ml Syringe IM 06/07/24 02:14 0.5 ml .ONCE GERALDO Administration Discontinued Medications Generic Name Dose Route Start Last Admin Trade Name Jez PRN Reason Stop Dose Admin Sodium Chloride 1,000 mls @ 999 mls/hr 05/08/24 05:45 05/08/24 05:55 Sod Chlor 0.9% 1000ml Bag IV 05/08/24 06:45 999 mls/hr .Q1H1M GERALDO Administration Pantoprazole Sodium 80 mg/ 100 mls @ 100 mls/hr 05/08/24 05:46 05/08/24 05:58 Sodium Chloride IV 05/08/24 06:45 100 mls/hr ONCE ONE Administration Iopamidol 160 ml 05/08/24 02:59 05/08/24 03:00 Iopamidol-370 (76%);100ml Bottle IV 05/08/24 03:00 160 ml ONCE ONE Administration Ondansetron HCl 4 mg 05/08/24 02:05 05/08/24 02:35 Ondansetron 4mg/2ml Vial IV 05/08/24 02:06 4 mg ONCE ONE Administration Prochlorperazine Edisylate 10 mg 05/08/24 04:25 05/08/24 04:35 Prochlorperazine 10mg/2ml Vial IV 05/08/24 04:26 10 mg ONCE ONE Administration Sodium Chloride 50 ml 05/08/24 02:59 05/08/24 03:00 0.9 % Sodium Chloride 50 Ml Vial IV 05/08/24 03:00 50 ml ONCE ONE Administration Sodium Chloride 10 ml 05/08/24 02:59 05/08/24 03:00 Sodium Chloride 0.9% 10ml Syr (Rad Only) IV 05/08/24 03:00 10 ml ONCE ONE Administration ORDERS Category Date Time Status CT angio abd/pel - TRAUMA Stat Cat Scan 05/08/24 02:[address] angio chest - dissection Stat Cat Scan 05/08/24 02:[address] angio head Stat Cat Scan 05/08/24 02:[address] angio neck Stat Cat Scan 05/08/24 02:[address] cervical spine wo con Stat Cat Scan 05/08/24 02:[address] facial bones wo con Stat Cat Scan 05/08/24 02:[address] head/brain wo con Stat Cat Scan 05/08/24 02:[address] lumbar spine wo con Stat Cat Scan 05/08/24 02:[address] thoracic spine wo con Stat Cat Scan 05/08/24 02:05 Completed POCUS Point of Care (ER Only) Stat Exams 05/08/24 02:09 Completed Activated Partial Thrombo Time Stat Lab 05/08/24 02:56 Completed Complete Blood Count Auto Diff Stat Lab 05/08/24 02:56 Completed Comprehensive Metabolic Panel Stat Lab 05/08/24 02:56 Completed Drug Screen,Urine Stat Lab 05/08/24 03:37 Completed Ethanol [Ethyl Alcohol] Stat Lab 05/08/24 02:56 Completed POC Glucose,Bedside Routine Lab 05/08/24 02:14 Completed Prothrombin Time INR Stat Lab 05/08/24 02:56 Completed Sodium Stat Lab 05/08/24 05:50 Completed Sodium Stat Lab 05/08/24 08:46 Completed Urinalysis and Microscopic Stat Lab 05/08/24 03:37 Completed Medical Decision Narrative: 74-year-old male with history of COPD, hypertension, aortic aneurysm presents for alcohol intoxication, altered mental status, fall with facial laceration. History was obtained via interactive discussion with patient, EMS, chart review. On arrival, patient is afebrile, hemodynamically stable, awake with slurred speech, partially oriented, reeks of alcohol, moving all extremities spontaneously. Full physical exam performed and significant for irregular laceration to the left eyebrow, bruising to the right chest wall, abdominal tenderness noted. Anticoagulation status unknown. Differential includes but is not limited to intracranial trauma intrathoracic trauma intra-abdominal trauma spine trauma extremity trauma. Bedside FAST exam was performed by me and was negative. Patient was sent emergently for CT trauma scans. Patient was given Tdap, Zofran for symptomatic management and correction of underlying abnormalities. Workup initiated including full trauma scans, trauma labs. On re-evaluation, patient remains intoxicated and otherwise stable. Laboratory workup independently interpreted by me and significant for mild anemia, hyponatremia with sodium 123, will repeat level and give 1 L of normal saline. creatinine 1.3, hypocalcemia noted. Alcohol level 184 Imaging independently interpreted by me and significant for no evidence of intracranial bleeding, rib fracture, intrathoracic or intra-abdominal bleeding. No facial fractures. See radiology read for full review of final results. At this time care dropped to oncoming physician pending continued metabolization and recheck of sodium. <Jefe Burgess MD - Last Filed: 05/08/24 09:36> Vital Signs: 05/08/24 02:15 05/08/24 02:21 05/08/24 04:00 Temperature 97.6 F Temperature Source Oral Pulse Rate 97 H 87 Pulse Rate [Apical] 84 Respiratory Rate 18 18 Blood Pressure 168/81 H 120/79 Blood Pressure [Right Arm] 175/103 H Blood Pressure Mean 92 Blood Pressure Mean [Right Arm] 127 02 Sat by Pulse Oximetry 95 96 95 Oxygen Delivery Method Room Air Room Air Room Air 05/08/24 04:09 05/08/24 04:30 05/08/24 05:00 Temperature Temperature Source Pulse Rate 80 95 H 85 Pulse Rate [Apical] Respiratory Rate 18 Blood Pressure 120/79 107/73 L 115/69 Blood Pressure [Right Arm] Blood Pressure Mean 86 76 Blood Pressure Mean [Right Arm] 02 Sat by Pulse Oximetry 98 96 96 Oxygen Delivery Method Room Air 05/08/24 05:30 05/08/24 06:00 05/08/24 07:00 Temperature Temperature Source Pulse Rate 84 81 80 Pulse Rate [Apical] Respiratory Rate Blood Pressure 113/73 129/81 122/66 Blood Pressure [Right Arm] Blood Pressure Mean 86 97 Blood Pressure Mean [Right Arm] 02 Sat by Pulse Oximetry 97 94 L 97 Oxygen Delivery Method Room Air 05/08/24 07:30 05/08/24 08:01 05/08/24 08:30 Temperature Temperature Source Pulse Rate 85 91 H 79 Pulse Rate [Apical] Respiratory Rate Blood Pressure 135/69 158/83 H 121/69 Blood Pressure [Right Arm] Blood Pressure Mean Blood Pressure Mean [Right Arm] 02 Sat by Pulse Oximetry 96 98 100 Oxygen Delivery Method Room Air Room Air Room Air 05/08/24 09:00 Temperature Temperature Source Pulse Rate 76 Pulse Rate [Apical] Respiratory Rate Blood Pressure 133/77 Blood Pressure [Right Arm] Blood Pressure Mean Blood Pressure Mean [Right Arm] 02 Sat by Pulse Oximetry 99 Oxygen Delivery Method Room Air Lab Data Lab Results 05/08/24 02:14: POC Glucose 99 05/08/24 02:56: WBC 8.0, RBC 3.49 L, Hgb 10.2 L, Hct 30.5 L, MCV 87.4, MCH 29.2, MCHC 33.4, RDW 12.4, Plt Count 247, MPV 9.4, Neut % (Auto) 64.0, Lymph % (Auto) 26.0, [place] % (Auto) 6.9, Eos % (Auto) 1.4, Baso % (Auto) 0.6, Neut # (Auto) 5.1, Lymph # (Auto) 2.1, [place] # (Auto) 0.6, Eos # (Auto) 0.1, Baso # (Auto) 0.1, PT 10.9, INR 0.97, APTT 32.3 H, Sodium 123 L, Potassium 3.5, Chloride 92 L, Carbon Dioxide 23, Anion Gap 11.5, BUN 23 H, Creatinine 1.30 H, Estimated Creat Clear 49, Estimated GFR 54 L, Est GFR ( Amer) 65, Glucose 93, Calcium 7.1 L, Total Bilirubin 0.2, AST 19, ALT 14, Alkaline Phosphatase 70, Total Protein 5.1 L, Albumin 2.5 L, Globulin 2.6, Albumin/Globulin Ratio 1.0 L, Plasma/Serum Alcohol 184 H 05/08/24 03:37: Urine Color Yellow, Urine Appearance Clear, Urine pH 6.0, Ur Specific [place] <= 1.005, Urine Protein Negative, Urine Glucose (UA) Negative, Urine Ketones Negative, Urine Blood 1+ A, Urine Nitrate Negative, Urine Bilirubin Negative, Urine Urobilinogen 0.2, Ur Leukocyte Esterase Negative, Ur Squamous Epith Cells 3-5, Urine Opiates Screen Negative, Urine Methadone Screen Negative, Ur Barbituates Screen Negative, Ur Phencyclidine Scrn Negative, Ur Amphetamines Screen Negative, U Benzodiazepines Scrn Negative, Urine Cocaine Screen Negative, U Marijuana (THC) Screen Negative 05/08/24 05:50: Sodium 126 L 05/08/24 08:46: Sodium 130 L Orders (Tests/Meds): ED MEDICATIONS Generic Name Dose Route Start Last Admin Trade Name Benjaminq PRN Reason Stop Dose Admin Sodium Chloride 10 ml 05/08/24 02:05 Sodium Chloride 0.9% 10ml Flush Syringe IV 06/07/24 02:04 NEEDED PRN Maintain IV Site Tetanus/Reduced Diphtheria/Acell Pertussis 0.5 ml 05/08/24 02:15 05/08/24 02:34 Tet/Diphth/Pert-Adult 0.5ml Syringe IM 06/07/24 02:14 0.5 ml .ONCE GERALDO Administration Discontinued Medications Generic Name Dose Route Start Last Admin Trade Name Jez PRN Reason Stop Dose Admin Sodium Chloride 1,000 mls @ 999 mls/hr 05/08/24 05:45 05/08/24 05:55 Sod Chlor 0.9% 1000ml Bag IV 05/08/24 06:45 999 mls/hr .Q1H1M GERALDO Administration Pantoprazole Sodium 80 mg/ 100 mls @ 100 mls/hr 05/08/24 05:46 05/08/24 05:58 Sodium Chloride IV 05/08/24 06:45 100 mls/hr ONCE ONE Administration Iopamidol 160 ml 05/08/24 02:59 05/08/24 03:00 Iopamidol-370 (76%);100ml Bottle IV 05/08/24 03:00 160 ml ONCE ONE Administration Ondansetron HCl 4 mg 05/08/24 02:05 05/08/24 02:35 Ondansetron 4mg/2ml Vial IV 05/08/24 02:06 4 mg ONCE ONE Administration Prochlorperazine Edisylate 10 mg 05/08/24 04:25 05/08/24 04:35 Prochlorperazine 10mg/2ml Vial IV 05/08/24 04:26 10 mg ONCE ONE Administration Sodium Chloride 50 ml 05/08/24 02:59 05/08/24 03:00 0.9 % Sodium Chloride 50 Ml Vial IV 05/08/24 03:00 50 ml ONCE ONE Administration Sodium Chloride 10 ml 05/08/24 02:59 05/08/24 03:00 Sodium Chloride 0.9% 10ml Syr (Rad Only) IV 05/08/24 03:00 10 ml ONCE ONE Administration ORDERS Category Date Time Status CT angio abd/pel - TRAUMA Stat Cat Scan 05/08/24 02:[address] angio chest - dissection Stat Cat Scan 05/08/24 02:[address] angio head Stat Cat Scan 05/08/24 02:[address] angio neck Stat Cat Scan 05/08/24 02:[address] cervical spine wo con Stat Cat Scan 05/08/24 02:[address] facial bones wo con Stat Cat Scan 05/08/24 02:[address] head/brain wo con Stat Cat Scan 05/08/24 02:[address] lumbar spine wo con Stat Cat Scan 05/08/24 02:[address] thoracic spine wo con Stat Cat Scan 05/08/24 02:05 Completed POCUS Point of Care (ER Only) Stat Exams 05/08/24 02:09 Completed Activated Partial Thrombo Time Stat Lab 05/08/24 02:56 Completed Complete Blood Count Auto Diff Stat Lab 05/08/24 02:56 Completed Comprehensive Metabolic Panel Stat Lab 05/08/24 02:56 Completed Drug Screen,Urine Stat Lab 05/08/24 03:37 Completed Ethanol [Ethyl Alcohol] Stat Lab 05/08/24 02:56 Completed POC Glucose,Bedside Routine Lab 05/08/24 02:14 Completed Prothrombin Time INR Stat Lab 05/08/24 02:56 Completed Sodium Stat Lab 05/08/24 05:50 Completed Sodium Stat Lab 05/08/24 08:46 Completed Urinalysis and Microscopic Stat Lab 05/08/24 03:37 Completed Medical Decision Narrative: 74-year-old male with history of COPD, hypertension, aortic aneurysm presents for alcohol intoxication, altered mental status, fall with facial laceration. History was obtained via interactive discussion with patient, EMS, chart review. On arrival, patient is afebrile, hemodynamically stable, awake with slurred speech, partially oriented, reeks of alcohol, moving all extremities spontaneously. Full physical exam performed and significant for irregular laceration to the left eyebrow, bruising to the right chest wall, abdominal tenderness noted. Anticoagulation status unknown. Differential includes but is not limited to intracranial trauma intrathoracic trauma intra-abdominal trauma spine trauma extremity trauma. Bedside FAST exam was performed by me and was negative. Patient was sent emergently for CT trauma scans. Patient was given Tdap, Zofran for symptomatic management and correction of underlying abnormalities. Workup initiated including full trauma scans, trauma labs. On re-evaluation, patient remains intoxicated and otherwise stable. Laboratory workup independently interpreted by me and significant for mild anemia, hyponatremia with sodium 123, will repeat level and give 1 L of normal saline. creatinine 1.3, hypocalcemia noted. Alcohol level 184 Imaging independently interpreted by me and significant for no evidence of intracranial bleeding, rib fracture, intrathoracic or intra-abdominal bleeding. No facial fractures. See radiology read for full review of final results. At this time care dropped to oncoming physician pending continued metabolization and recheck of sodium. Jenifer: I assumed primary responsibility for this patient after signout from previous physician. On my evaluation, patient states he is feeling little better. Alert and oriented. Sodium improved significantly to 130. Patient able to tolerate p.o. intake. Independent to rotation of hematologic workup nonactionable and independent interpretation of patient's trauma scans also nonactionable. No intracranial hemorrhage or facial bone fracture. No cervical spine injury. Because patient at baseline without signs or symptoms of clinical decompensation, deemed appropriate for discharge. Results were relayed to patient who voiced understanding and were agreeable to outpatient management and follow up. I discussed my clinical impression with patient and answered all questions. At this time, the evidence for any other entities in the differential is insufficient to warrant any further testing or ED observation. This was explained as well. Advisory was given that persistent or worsening symptoms require further evaluation. I confirmed the understanding of this discussion. Procedures <Antonio Du MD - Last Filed: 05/08/24 07:26> Risk/Benefits of Procedure(s) Were Explained: Yes Limited Ultrasound Indication:: Limited EFAST ultrasound Indication: Blunt trauma Views: [LUQ, RUQ, Pelvis, Limited Cardiac, Limited Thoracic] Interpretation: Peritoneal Free Fluid: Absent Pericardial effusion: Absent Right lung pneumothorax: Absent Left Lung pneumothorax: Absent Impression: Negative EFAST ultrasound Images were saved to permanent archive The study was technically adequate CPT 39040-96 (limited cardiac) 10076-96 (limited abdominal) 94868-88 (chest) This study was performed by me, and I personally interpreted all images/videos. Critical Care <Antonio Du MD - Last Filed: 05/08/24 07:26> Critical Care Time Critical Care Time: Yes Attestation: On 05/08/24, the high probability of a clinically significant, sudden or life threatening deterioration of the following system(s) required my full and direct attention, intervention and personal management. The time I documented below is in addition to time spent performing reported procedures but includes the following listed in this critical care notation. Total Time Total Critical Care Time: 40
[2024-05-08] MEDS: 0.9 % SODIUM CHLORIDE 1000ML 1,000 ML 999 ML IV (05:55)
[2024-05-08] MEDS: PANTOPRAZOLE SODIUM 80 MG in 0.9 % SODIUM CHLORIDE 100 ML 100 MG IV (05:58)
[2024-05-08 06:54] LABS: Sodium 126 mmol/L (136-145)
[2024-05-08 09:02] LABS: Sodium 130 mmol/L (136-145)
--- NOTE | 2024-05-08 10:05 | PC.NURSE ---
[facility] called for pt to have a ride home
--- NOTE | 2024-05-08 10:26 | PC.NURSE ---
Pt given clothes from [facility] clothing closet and d/c paperwork given and reviewed with pt. He was assisted to ER lobby to await ride.
== END 2024-05-08 10:27 | disposition home or self-care (01) ==
PROVIDERS: Emergency Medicine; Emergency Provider Emergency Medicine
DX: F10.121 Alcohol abuse with intoxication delirium (principal); S20.211A Contusion of right front wall of thorax, initial encounter; S01.81XA Laceration without foreign body of other part of head, initial encounter; I71.40 Abdominal aortic aneurysm, without rupture, unspecified; E87.1 Hypo-osmolality and hyponatremia; R10.9 Unspecified abdominal pain; R41.82 Altered mental status, unspecified; R47.81 Slurred speech; F17.210 Nicotine dependence, cigarettes, uncomplicated; Z23 Encounter for immunization; Y90.6 Blood alcohol level of 120-199 mg/100 ml; W19.XXXA Unspecified fall, initial encounter; Y93.9 Activity, unspecified; Y92.009 Unspecified place in unspecified non-institutional (private) residence as the place of occurrence of the external cause
CPT/HCPCS: 70450; 70486; 70496; 70498; 71275; 72125; 72128; 72131; 74174; 80053; 80307; 80320; 81001; 82962; 84295; 85025; 85610; 85730; 90471; 90715; 96361; 96374; 96375; 96376; 99291; J0780; J2405; J2470; J7030; Q9967

== ENCOUNTER 2024-10-07 22:24 | Emergency (ER) | payer MEDICARE, MEDICAID, SELFPAY ==
--- OUTSIDE RECORDS SUMMARY | 2024-10-02 08:11 | XMS_ITS | Continuity of Care Document ---
Author Organization [facility] Address [address] [place] [address] Phone Care Team Providers Care Apartment Community Assistant Manager Name Role Phone Deuce MSN, MOTOR VEHICLE TECHNICIAN, Lynette Unavailable Unavai lable Allergies, Adverse Reactions, Alerts Substance Reaction Status Criticality codeine Active No Information Medications Medication Instructions Dosage Effective Dates (start - stop) Status Comments DULOXETINE HYDROCHLORIDE DR [address] CAPSULE DR PART TAKE ONE (1) CAPSULE BY ORAL ROUTE EVERY DAY - Active ROSUVASTATIN CALCIUM 20MG TABLET TAKE ONE (1) TABLET BY ORAL ROUTE EVERY DAY - Active SYMBICORT 160-4.5 AEROSOL INHALE TWO (2) PUFFS BY INHALATION ROUTE TWO (2) TIMES EVERY DAY IN THE MORNING AND EVENING - Active MONTELUKAST SODIUM 10MG TABLET TAKE ONE (1) TABLET BY ORAL ROUTE EVERY DAY IN THE EVENING - Active ALBUTEROL SULFATE HFA HFA AEROSOL SOLN INHALE TWO (2) PUFFS BY MOUTH EVERY FOUR (4) TO SIX (6) HOURS NEEDED - Active IRBESARTAN 75MG TABLET TAKE ONE (1) TABL ET BY ORAL ROUTE EVERY DAY - Active FLUOXETINE HYDROCHLORIDE 20MG CAPSULE TAKE ONE (1) CAPSULE BY ORAL ROUTE EVERY DAY IN THE MORNING - Active MELOXICAM 7.5MG TABLET TAKE ONE (1) TABL ET BY ORAL ROUTE EVERY DAY - Active Vitamin D3 50 mcg (2,000 unit) capsule take 1 capsule by oral route every day 1 capsule - Active ferrous sulfate 325 mg (65 mg iron) tablet,delayed release take 1 tablet by oral route every day 1 tablet - Active gabapentin 300 mg capsule take 1 capsule by oral route 3 times every day 300 MG - Active nifedipine ER 60 mg tablet,extended release 24 hr TAKE ONE (1) TABLET BY ORAL ROUTE EVERY DAY - Active Space Chamber to be used with symbicort and albuterol as instructed. - Active Advance Directives Directive Yes / No Effective Date File Name No Information Encounters Encounter Description Practice Location Reason(s) For Visit Diagnoses Date Provider [facility], [address] [place] [address], [facility], tel:[phone] [facility] [place] No Information Tripathi Lynette. [address] [place], [place], [address] [place] [address] , . tel: [phone] [place] [address], [address] [place] [address], [facility], tel:[phone] [facility] [place] No Information 5 Tripathi Lynette. [address] [place], [place], [address] [place] [address] , [place]. tel: [phone] [facility], [address] [place] [address], [facility], tel:[phone] [facility] [place] No Information 5 Tripathi Lynette. [address] [place], [place], [address] [place] [address] , [place]. tel:[phone] [facility], [address] [place] [address], [facility], [place] tel:[phone] [facility] [place] No Information 5 Tripathi Lynette. [address] [place], [place], [address] [place] [address] , [place]. tel: [phone] [facility], [address] [place] [address], [facility], tel:[phone] [facility] [place] No Information 5 Tripathi Lynette. [address] [place], [place], [id number] , . tel:[phone] [facility], [address] [place] [address], [facility], tel:[phone] [facility] [place] f/u labs (chief complaint) AnemiaChronic renal insufficiencyCOPDEssent ial (primary) hypertensionEssential tremorHistory of fallingHyperlipidemiaLo w back pain, unspecifiedNicotine dependence, cigarettes, uncomplicatedPrediabete sRadiculopathy, cervical regionSolitary pulmonary noduleNonadherence to Medical TreatmentBody mass index [BMI] 22.0-22.9, adultFrailtyEncounter for therapeutic drug level monitoring 5 Tripathi Lynette. [address] [place], [place], [id number] , [place]. tel:[phone] [facility], [address] [place] [address], [facility], tel:[phone] [facility] [place] Back, Neck and Shoulder Pain (chief complaint)ht n crisis (chief complaint)co pd (chief complaint)ot her (chief complaint) Body mass index [BMI] 22.0-22.9, adultCOPDEssential tremorHypertensive crisisLow back pain, unspecifiedNicotine dependence, cigarettes, uncomplicatedPrediabete sRadiculopathy, cervical regionNonadherence to Medical TreatmentSolitary pulmonary noduleEssential (primary) hypertension 5 Tripathi Lynette. [address] [place], [place], [id number] , [place]. tel:[phone] [facility], [address] [place] [address], [id number], [place] tel:[phone] [facility] [place] medication manangement (chief complaint) COPDNicotine dependence, cigarettes, uncomplicatedSolitary pulmonary nodule 4 Tripathi Lynette. [address] [place], [place], [id number] , . tel: [phone] [facility], [address] [place] [address], [facility], tel:[phone] [facility] [place] depression screening (chief complaint)pr apare (chief complaint)ba ck pain and medications (chief complaint) Extreme povertyUnderachievement in schoolUnemployment, unspecifiedFood insecurityProblem related to primary support group, unspecifiedEncounter for screening for depressionLow back pain, unspecifiedCOPDEssentia l (primary) hypertensionNicotine dependence, cigarettes, uncomplicatedOther chronic painRadiculopathy, cervical region Sep-3 0-202 4 Tripathi Lynette. [address] [place], [place], [id number] , . tel: [phone] [facility], [address] [place] [address], [facility], tel:[phone] [facility] [place] Medication Refills (chief complaint)Fo llow up from pain management (chief complaint) Atherosclerotic heart diseaseEssential (primary) hypertensionOther chronic painNicotine dependence, cigarettes, uncomplicatedRadiculopa thy, cervical region Mar- 4 Tripathi Lynette. [address] [place], [place], [id number] , [place]. tel: [phone] [facility], [address] [place] [address], [facility], tel:[phone] [place] Repeated falls Nov- 3 Tripathi Lynette. [address] [place], [place], [id number] , [place]. tel: [phone] [facility], [address] [place] [address], [facility], tel:[phone] [facility] [place] Follow up (chief complaint) COPDEssential (primary) hypertensionOther chronic painNicotine dependence, cigarettes, uncomplicatedGERD disease w/ esophagitis, w/o bleedingRepeated falls 3 Tripathi Lynette. [address] [place] [address], [id number] , . tel: [phone] [facility], [address] [place] [address], [facility], tel:[phone] [facility] f/u CT and lab results (chief complaint) Vitamin B12 deficiency anemia, unspecifiedEssential tremorRepeated fallsChronic renal insufficiencyCOPDHypert ensive crisisOther chronic painSolitary pulmonary noduleAbrasion of right hand, initial encounterAnemiaPrediabe tesEssential (primary) hypertension 3 Tripathi Lynette. [address] [place] [address], [id number] , . tel: [phone] [facility], [address] [place] [address], [facility], [place] tel:[phone] [facility] CYNTHIMAHAMED SOB (chief complaint) COPD w/ acute exacerbationLow back pain, unspecifiedHypertensive crisisHyperlipidemiaVit zavaleta B12 deficiency anemia, unspecifiedNicotine dependence, cigarettes, uncomplicatedAcute upper respiratory infection, unspecifiedInsomnia, unspecifiedBody mass index [BMI] 22.0-22.9, adultAtherosclerotic heart diseaseHistory of fallingChronic renal insufficiencyAneurysm of the ascending aorta, without ruptureSolitary pulmonary noduleEncounter for screening for depressionEncounter for screening examination for other mental health and behavioral disorders Sep- 3 Tripathi Lynette. [address] [place] [address], [id number] , [place]. tel: [phone] [facility], [address] [place] [address], [facility], [place] tel:[phone] [facility] [place] Follow up from recent Hosptial Discharge (chief complaint) Other chronic painRadiculopathy, cervical regionEssential (primary) hypertensionCOPDVitamin B12 deficiency anemia, unspecified Apr- 3 Tripathi Lynette. [address] [place], [place], [id number] , [place]. tel:[phone] [facility], [address] [place] [address], [facility], tel:[phone] [facility] Illness (chief complaint) COPD w/ acute exacerbationHypertensiv e crisisSyncope and collapseVitamin B12 deficiency anemia, unspecifiedNicotine dependence, cigarettes, uncomplicatedAcute renal injuryBody mass index [BMI] 22.0-22.9, adult May- 3 Tripathi Lynette. [address] [place], [place], [id number] , [place]. tel:[phone] [facility], [address] [place] [address], [facility], tel:[phone] [facility] Visit for labs. (chief complaint) Hyperlipidemia 3 Tripathi Lynette. [address] [place], [place], [id number] , [place]. tel:[phone] [facility], [address] [place] [address], [address], tel:[phone] [facility] follow up neck/back pain (chief complaint) Other intervertebral disc degeneration, lumbosacral regionLow back pain, unspecifiedGross hematuriaEssential (primary) hypertensionCOPDNicotin e dependence, cigarettes, uncomplicated Feb-0 3 Tripathi Lynette. [address] [place], [place], [id number] , [place]. tel:[phone] [facility], [address] [place] [address], [address], [place] tel:[phone] [facility] back pain f/u MRII (chief complaint) Other intervertebral disc degeneration, lumbosacral regionEssential tremorAcute upper respiratory infection, unspecifiedNicotine dependence, cigarettes, uncomplicatedGross hematuriaLow back pain, unspecified Leland-2 0-202 3 Tripathi Lynette. [address] [place], [place], [id number] , [place]. tel:[phone] [facility], [address] [place] [address], [facility], tel:[phone] [facility] [place] f/u BP (chief complaint) Low back pain, unspecifiedPain in left hipGross hematuriaEssential (primary) hypertension 0 2 Tripathi Lynette. [address] [place], [place], [id number] , [place]. tel:[phone] [facility], [address] [place] [address], [facility], tel:[phone] [facility] [place] Gross hematuria 4 2 Tripathi Lynette. [address] [place], [place], [id number] , [place]. tel:[phone] [facility], [address] [place] [address], [facility], tel:[phone] [facility] [place] Pain (chief complaint) Anxiety disorder, unspecifiedRadiculopath y, cervical regionLow back pain, unspecifiedOther chronic pain Sep-2 6202 2 Tripathi Lynette. [address] [place], [place], [id number] , [place]. tel:[phone] [facility], [address] [place] [address], [facility], tel:[phone] [facility] [place] New Patient (chief complaint)Le ft Leg Pain (chief complaint)He adaches (chief complaint) Encounter for screening for depressionEncounter for screening examination for other mental health and behavioral disordersAnxiety disorder, unspecifiedCOPDEssentia l (primary) hypertensionHyperlipide miaOther chronic painEncounter for screening for diseases of the blood and blood-forming organs and certain disorders involving the immune mechanismEncounter for screening, unspecified Sep-2 0- 2 Tripathi Lynette. [address] [place], [place], [id number] , . tel: [phone] Family History Family Member Type Diagnosis Age At Onset Paternal grandfather Problem hx unknown Daughter Problem at 6 months old due to SIDS Brother Problem Alive and well Son Problem Alive and well Sister Problem Alive and well Sister Problem Alive and well Daughter Problem Alive and well Daughter Problem Alive and well Sister Problem Alive and well Son Problem due to complications shortly after . Paternal grandmother Problem hx unknown Brother Problem due to Cancer. Type of cancer unknown. Daughter Problem Alive and well Mother Problem Diabetes mellitus Brother Problem Alive and well Maternal grandmother Problem hx unknown Sister Problem passed due to Lung Cancer Daughter Problem Alive and well Father Problem cause of unknown Brother Problem Alive and well Daughter Problem Alive and well Sister Problem due to Dementia Daughter Problem Alive and well Sister Problem passed due to ca ncer. Type of cancer unknown. Maternal grandfather Problem Hx unknown Immunizations Vaccine Date Status Comments Influenza virus vaccine, trivalent (IIV3), split virus, preservative free, 0.5 mL dosage, for intramuscular use refused Source: New Immuni zation Record SARS-COV-2 (COVID-19) vaccin e, mRNA, spike protein, LNP, bivalent booster, preservative free, 50 mcg/0.5 mL or 25 mcg/0.25 mL dose (Moderna) refused Source: New I mmunization Record Influenza Flulaval refused Source: N ew Immunization Record Moderna refused Source: New Imm unization Record Influenza Flulaval refused Source: N ew Immunization Record Payers Payer name Insurance type Covered libertarian ID Authoriza tion(s) Mcr Adv Humana CI [id number] [facility]- Medicaid [employer] [place] [id number] [facility]- Medicaid Well[employer] [place] Payer [id number] [facility]- Medicaid [employer] CI [id number] Social History Type Description Quantity Date Captured Comments Alcohol Use Details Unknown Caffeine Use Details Unknown Tobacco Use Status Smoking Status No Information Sex Male Sexual Orientation Straight or heterosexual Oct Gender Identity Male Chief Complaint And Reason For Visit No Information Plan Of Treatment Date Type Action Status Goal Lipid panel. Due on due Goal Pneumococcal vac cine. Due on due Goal Diabetes screening. Due on due Goal Urinalysis due Goal Obtain Height, W eight, and BMI. Due on due Goal Hemoglobin (Pree emerita/HR 9 months). Due on due Goal ECG. Due on due Goal Generalized Anxi ety Disorder - 7 (ROSAS-7). Due on due Goal Tobacco Use Cess ation Counseling. Due on due Goal Tobacco Use Scre ening. Due on due Goal Hepatitis C Screening due Goal Drug Abuse Scree sebastian Test (DAST-10). Due on due Goal Unhealthy drug use screening due Goal Tobacco screening. Due on due Goal CBC. Due on due Goal Hematocrit/Hemog lobin. Due on due Goal CMP. Due on due Goal Vitamin B12. Due on due Goal Vitamin D. Due on due Goal Taking Aspirin o r other anti-coagulant. Due on due Goal Influenza vaccine. Due on due Goal Depression scree sebastian. Due on due Goal Obtain blood Pre ssure. Due on due Goal Lipid panel. Due on due Goal Taking Aspirin o r other anti-coagulant. Due on due Goal Depression scree sebastian. Due on due Goal Tobacco Use Scre ening. Due on due Goal Diabetes screening. Due on due Goal Influenza vaccine. Due on due Goal Vitamin B12. Due on due Goal Urinalysis due Goal Pneumococcal vac cine. Due on due Goal CMP. Due on due Goal Obtain blood Pre ssure. Due on due Goal ECG. Due on due Goal CBC. Due on due Goal Unhealthy drug use screening due Goal Tobacco Use Cess ation Counseling. Due on due Goal Tobacco screening. Due on due Goal Vitamin D. Due on due Goal Hepatitis C Screening due Goal Obtain Height, W eight, and BMI. Due on due Goal Drug Abuse Scree sebastian Test (DAST-10). Due on due Goal Generalized Anxi ety Disorder - 7 (ROSAS-7). Due on due Goal Lifestyle education regardin g diet completed Goal Lipid panel. Due on due Goal Drug Abuse Scree sebastian Test (DAST-10). Due on due Goal Vitamin D. Due on due Goal Tobacco screening. Due on due Goal Depression scree sebastian. Due on due Goal Vitamin B12. Due on due Goal Generalized Anxi ety Disorder - 7 (ROSAS-7). Due on due Goal Pneumococcal vac cine. Due on due Goal Obtain blood Pre ssure. Due on due Goal Unhealthy drug use screening due Goal CMP. Due on due Goal Hepatitis C Screening due Goal Tobacco Use Cess ation Counseling. Due on due Goal Urinalysis due Goal Diabetes screening. Due on due Goal CBC. Due on due Goal Taking Aspirin o r other anti-coagulant. Due on due Goal Obtain Height, W eight, and BMI. Due on due Goal Tobacco Use Scre ening. Due on due Goal Influenza vaccine. Due on due Goal ECG. Due on due Goal Tobacco cessation counseling completed Goal Lifestyle education regardin g diet completed Goal Urinalysis due Goal Depression scree sebastian. Due on due Goal Pneumococcal vac cine. Due on due Goal Taking Aspirin o r other anti-coagulant. Due on due Goal Diabetes screening. Due on due Goal CT-Colonography. Due on due Goal Drug Abuse Scree sebastian Test (DAST-10). Due on due Goal Obtain Height, W eight, and BMI. Due on due Goal Unhealthy drug use screening due Goal Lipid panel. Due on due Goal Colonoscopy. Due on due Goal Tobacco Use Cess ation Counseling. Due on due Goal Generalized Anxi ety Disorder - 7 (ROSAS-7). Due on due Goal Vitamin B12. Due on due Goal FIT. Due on due Goal ECG. Due on due Goal Vitamin D. Due on due Goal FOBT. Due on due Goal Hepatitis C Screening due Goal CMP. Due on due Goal FIT-DNA. Due on due Goal Tobacco Use Scre ening. Due on due Goal CBC. Due on due Goal Influenza vaccine. Due on due Goal Obtain blood Pre ssure. Due on due Goal Hepatitis C Screening due Goal Tobacco Use Cess ation Counseling. Due on due Goal Generalized Anxi ety Disorder - 7 (ROSAS-7). Due on due Goal Vitamin B12. Due on due Goal Urinalysis due Goal FOBT. Due on due Goal Diabetes screening. Due on due Goal Unhealthy drug use screening due Goal Depression scree sebastian. Due on due Goal FIT-DNA. Due on due Goal Taking Aspirin o r other anti-coagulant. Due on due Goal FIT. Due on due Goal Drug Abuse Scree sebastian Test (DAST-10). Due on due Goal Colonoscopy. Due on due Goal CBC. Due on due Goal CT-Colonography. Due on due Goal Tobacco Use Scre ening. Due on due Goal CMP. Due on due Goal Influenza vaccine. Due on due Goal ECG. Due on due Goal Obtain blood Pre ssure. Due on due Goal Obtain Height, W eight, and BMI. Due on due Goal Pneumococcal vac cine. Due on due Goal Vitamin D. Due on due Goal Lipid panel. Due on due Goal FOBT. Due on due Goal Hepatitis C Screening due Goal Generalized Anxi ety Disorder - 7 (ROSAS-7). Due on due Goal Unhealthy drug use screening due Goal Urinalysis due Goal Pneumococcal vac cine. Due on due Goal FIT. Due on due Goal Diabetes screening. Due on due Goal Depression scree sebastian. Due on due Goal CBC. Due on due Goal Colonoscopy. Due on due Goal Drug Abuse Scree sebastian Test (DAST-10). Due on due Goal ECG. Due on due Goal Tobacco Use Scre ening. Due on due Goal FIT-DNA. Due on due Goal Obtain Height, W eight, and BMI. Due on due Goal Vitamin B12. Due on due Goal CT-Colonography. Due on due Goal Influenza vaccine. Due on due Goal Lipid panel. Due on due Goal Vitamin D. Due on due Goal CMP. Due on due Goal Taking Aspirin o r other anti-coagulant. Due on due Goal Tobacco Use Cess ation Counseling. Due on due Goal Follow up Plan f or abnormal BMI (Less than 18.5, greater than 25). Due on due Goal Obtain blood Pre ssure. Due on due Goal Tobacco cessation counseling completed Goal FIT. Due on due Goal Taking Aspirin o r other anti-coagulant. Due on due Goal CMP. Due on due Goal Follow up Plan f or abnormal BMI (Less than 18.5, greater than 25). Due on due Goal FOBT. Due on due Goal Colonoscopy. Due on due Goal Hepatitis C Screening due Goal FIT-DNA. Due on due Goal Obtain blood Pre ssure. Due on due Goal CBC. Due on due Goal Unhealthy drug use screening due Goal Diabetes screening. Due on due Goal Drug Abuse Scree sebastian Test (DAST-10). Due on due Goal CT-Colonography. Due on due Goal ECG. Due on due Goal Tobacco Use Cess ation Counseling. Due on due Goal Vitamin D. Due on due Goal Depression scree sebastian. Due on due Goal Tobacco Use Scre ening. Due on due Goal Pneumococcal vac cine. Due on due Goal Obtain Height, W eight, and BMI. Due on due Goal Lipid panel. Due on 028 due Goal Vitamin B12. Due on 024 due Goal Urinalysis due Goal Generalized Anxi ety Disorder - 7 (ROSAS-7). Due on due Goal Influenza vaccine. Due on due Goal Obtain blood Pre ssure. Due on due Goal Diabetes screening. Due on due Goal CBC. Due on due Goal CMP. Due on due Goal Drug Abuse Scree sebastian Test (DAST-10). Due on due Goal FIT. Due on due Goal ECG. Due on due Goal Colonoscopy. Due on 023 due Goal Lipid panel. Due on 028 due Goal Tobacco Use Scre ening. Due on due Goal Follow up Plan f or abnormal BMI (Less than 18.5, greater than 25). Due on due Goal Unhealthy drug use screening due Goal Influenza vaccine. Due on due Goal Vitamin D. Due on due Goal CT-Colonography. Due on due Goal FOBT. Due on due Goal Obtain Height, W eight, and BMI. Due on due Goal Vitamin B12. Due on 024 due Goal Urinalysis due Goal Pneumococcal vac cine. Due on due Goal Generalized Anxi ety Disorder - 7 (ROSAS-7). Due on due Goal Tobacco Use Cess ation Counseling. Due on due Goal FIT-DNA. Due on due Goal Hepatitis C Screening due Goal Depression scree sebastian. Due on due Goal Taking Aspirin o r other anti-coagulant. Due on due Goal Drug Abuse Scree sebastian Test (DAST-10). Due on due Goal CT-Colonography. Due on due Goal FIT-DNA. Due on due Goal Diabetes screening. Due on M due Goal Colonoscopy. Due on due Goal FIT. Due on due Goal Tobacco Use Scre ening. Due on due Goal Tobacco Use Cess ation Counseling. Due on due Goal Influenza vaccine. Due on Oc due Goal Urinalysis due Goal CMP. Due on due Goal Unhealthy drug use screening due Goal ECG. Due on due Goal Depression scree sebastian. Due on due Goal Follow up Plan f or abnormal BMI (Less than 18.5, greater than 25). Due on due Goal Vitamin B12. Due on 024 due Goal CBC. Due on due Goal Pneumococcal vac cine. Due on due Goal Lipid panel. Due on 028 due Goal Taking Aspirin o r other anti-coagulant. Due on due Goal Generalized Anxi ety Disorder - 7 (ROSAS-7). Due on due Goal Obtain blood Pre ssure. Due on due Goal Hepatitis C Screening due Goal Vitamin D. Due on due Goal FOBT. Due on due Goal Obtain Height, W eight, and BMI. Due on due Goal Taking Aspirin o r other anti-coagulant. Due on due Goal CMP. Due on due Goal Obtain blood Pre ssure. Due on due Goal Tobacco Use Scre ening. Due on due Goal Follow up Plan f or abnormal BMI (Less than 18.5, greater than 25). Due on due Goal FIT. Due on due Goal Tobacco Use Cess ation Counseling. Due on due Goal Hepatitis C Screening due Goal Urinalysis due Goal Vitamin D. Due on due Goal CBC. Due on due Goal Obtain Height, W eight, and BMI. Due on due Goal CT-Colonography. Due on due Goal Diabetes screening. Due on due Goal Unhealthy drug use screening due Goal Colonoscopy. Due on 023 due Goal ECG. Due on due Goal Depression scree sebastian. Due on due Goal Lipid panel. Due on 028 due Goal FOBT. Due on due Goal Generalized Anxi ety Disorder - 7 (ROSAS-7). Due on due Goal FIT-DNA. Due on due Goal Drug Abuse Scree sebastian Test (DAST-10). Due on due Goal Vitamin B12. Due on due Goal Pneumococcal vac cine. Due on due Goal Lifestyle education regardin g diet completed Goal Obtain blood Pre ssure. Due on due Goal Follow up Plan f or abnormal BMI (Less than 18.5, greater than 25). Due on due Goal Influenza vaccine. Due on Ap due Goal Colonoscopy. Due on due Goal Lipid panel. Due on due Goal CBC. Due on due Goal Hepatitis C Scre ening. Due on due Goal CMP. Due on due Goal FIT. Due on due Goal Unhealthy drug u se screening. Due on due Goal Depression scree sebastian. Due on due Goal CT-Colonography. Due on due Goal Vitamin B12. Due on due Goal Pneumococcal vac cine. Due on due Goal Urinalysis due Goal Drug Abuse Scree sebastian Test (DAST-10). Due on due Goal Diabetes screening. Due on A due Goal Obtain Height, W eight, and BMI. Due on due Goal Generalized Anxi ety Disorder - 7 (ROSAS-7). Due on due Goal Vitamin D. Due on due Goal FOBT. Due on due Goal Tobacco Use Scre ening. Due on due Goal FIT-DNA. Due on due Goal ECG. Due on due Goal Tobacco Use Cess ation Counseling. Due on due Goal Vitamin D. Due on 4 due Goal Lipid panel. Due on 023 due Goal Tobacco Use Cess ation Counseling. Due on due Goal Pneumococcal vac cine. Due on due Goal ECG. Due on due Goal FIT-DNA. Due on due Goal Obtain blood Pre ssure. Due on due Goal CT-Colonography. Due on due Goal Vitamin B12. Due on 024 due Goal FIT. Due on due Goal Generalized Anxi ety Disorder - 7 (ROSAS-7). Due on due Goal Urinalysis due Goal Influenza vaccine. Due on Ap due Goal Depression scree sebastian. Due on due Goal Obtain Height, W eight, and BMI. Due on due Goal Diabetes screening. Due on A due Goal CMP. Due on due Goal Unhealthy drug u se screening. Due on due Goal Hepatitis C Scre ening. Due on due Goal FOBT. Due on due Goal Colonoscopy. Due on due Goal CBC. Due on due Goal Tobacco Use Scre ening. Due on due Goal Follow up Plan f or abnormal BMI (Less than 18.5, greater than 25). Due on due Goal Drug Abuse Scree sebastian Test (DAST-10). Due on due Goal Tobacco cessation counseling completed Goal Lifestyle education regardin g diet completed Goal CBC. Due on due Goal Vitamin D. Due on due Goal FIT-DNA. Due on due Goal FOBT. Due on due Goal Drug Abuse Scree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 loose, can lead to falls. Walking around in bare feet, or only socks, can also increase your risk of falling.?Take vitamin D pills - Taking vitamin D might lower the risk of falls in older people. This is because vitamin D helps make bones and muscles stronger. Your doctor can talk to you about whether you should take extra vitamin D, and how much.?Stay active - Moving your body regularly can help lower your risk of falling. It might also help prevent you from getting hurt if you do fall. It is best to do a few different activities that help with both strength and balance. There are many kinds of exercise that can be safe for older people. These include walking, swimming, and mona chi (a [place] martial art that involves slow, gentle movements).?Use a cane, walker, or other safety devices - If your doctor recommends that you use a cane or walker, be sure that it's the right size and you know how to use it. There are other devices that might help you avoid falling, too. These include grab bars or a sturdy seat for the shower, non-slip bath mats, and hand rails or treads for the stairs (to prevent slipping).?Take extra care if you have had surgery or are in the hospital - Ask for help with getting out of bed, getting up from a chair, or going to the bathroom. Your body needs time to heal, and it's normal to need help with these things while you recover. It can also help to keep your belongings within reach, and avoid walking around in the dark. If you need help, use the call button instead of trying to get up. Related to Repeated falls CT results reviewed w/ pt: Pulmonary nodules stableRepeat Low dose CT chest in 12 months Related to Solitary pulmonary nodule Stop use of NSAIDSMa y use tylenol for painGo to Pain management appointmentTake your BP medication as instructedRTC 2 weeks for f/u on medication and BPConsider nephrology consult Related to Chronic renal insufficiency Patient instructed o f the importance of taking medications as prescribed, following a low salt diet as well as getting physical activity as tolerated. Patient advised to keep BP log daily checking each morning and before bed. Patient to call the clinic if systolic blood pressure is greater than 150 and/or diastolic blood pressure is staying greater than 90.declined to go to the ER for evaluationNon-compliance with medication- but states I will take my medication this time. 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 This might include furniture, electrical cords, clutter, and loose rugs (figure 1). Keep your home well-lit so that you can easily see where you are going. Avoid storing things in high places so you don't have to reach or climb.?Wear non-slip socks or sturdy shoes that fit well - Wearing shoes with high heels or slippery soles, or shoes that are too loose, can lead to falls. Walking around in bare feet, or only socks, can also increase your risk of falling.?Take vitamin D pills - Taking vitamin D might lower the risk of falls in older people. This is because vitamin D helps make bones and muscles stronger. Your doctor can talk to you about whether you should take extra vitamin D, and how much.?Stay active - Moving your body regularly can help lower your risk of falling. It might also help prevent you from getting hurt if you do fall. It is best to do a few different activities that help with both strength and balance. There are many kinds of exercise that can be safe for older people. These include walking, swimming, and mona chi (a [place] martial art that involves slow, gentle movements).?Use a cane, walker, or other safety devices - If your doctor recommends that you use a cane or walker, be sure that it's the right size and you know how to use it. There are other devices that might help you avoid falling, too. These include grab bars or a sturdy seat for the shower, non-slip bath mats, and hand rails or treads for the stairs (to prevent slipping).?Take extra care if you have had surgery or are in the hospital - Ask for help with getting out of bed, getting up from a chair, or going to the bathroom. Your body needs time to heal, and it's normal to need help with these things while you recover. It can also help to keep your belongings within reach, and avoid walking around in the dark. If you need help, use the call button instead of trying to get up. Related to History of falling documented in past records Relat ed to Aneurysm of the ascending aorta, without rupture added from records reviewed Rela lara to Chronic renal insufficiency It is recommended to stop smoking/vaping to increase overall health and decrease risk of cardiovascular disease. If you wish to stop smoking/vaping, there is a free online [place] from smoking course offered through our local health department. You may call [phone] for more information.Use nicotine patches as instructed.RTC 1 month for f/u Related to Nicotine dependence, cigarettes, uncomplicated Physical activity as tolerated. Try to engage in some form of moderate physical activity for 30 minutes most days of the week. May modify activity as needed to reduce discomfort. Try to achieve/maintain a healthy body weight to reduce strain on musculoskeletal system. Verbalizes an understanding. Related to Body mass index [BMI] 22.0-22.9, adult Counseled on importa nce of sleep hygiene. Maintain a consistent sleep schedule. Avoid caffeine for at least 6 hours prior to bed. Limit screen time (TV, phone, video games) before bed. Make sure bedroom is cool and dark, which improves sleep quality. If taking medications to help with insomnia, try to take at least 30 minutes before goal bed time. Do not smoke or drink alcohol just before bedtime. Got to bed and get up at the same time daily. Related to Insomnia, unspecified Take rest. Drink ple nty of fluids. Uses saline sinus rinses. Use prescription and/or OTC medications for symptom relief as instructed. RTC for worsening URI symptoms. If develops high and/or persistent fever, chills, shortness of breath, severe cough, will need urgent evaluation. Verbalizes an understanding. Related to Acute upper respiratory infection, unspecified Patient instructed o n appropriate use of medications prescribed for back pain. Discussed conservative measures such as heat, ice, gentle strength stretching, and core muscle strengthening. Avoid heavy lifting, pulling, or tugging. Contact the clinic if any worsening or new symptoms related to back pain occur. Related to Low back pain, unspecified B-12 injection given in office today. Eat foods rich in B-12. Additional oral B12 replacement if indicated. Related to Vitamin B12 deficiency anemia, unspecified Patient instructed t o continue current medication regimen. Patient instructed to avoid tobacco smoke, vaping and other environmental smoke exposure. Patient instructed to limit exertional activity until COPD symptoms are under better control. Discussed signs and symptoms with COPD exacerbation. If symptoms do not improve after using medications prescribed today patient instructed to contact the clinic for a follow up appointment. Related to COPD w/ acute exacerbation Low fat, low cholest halle diet. Avoid fatty, fried, and greasy foods. Physical activity as tolerated. Counseled on risks of associated comorbidities, such as heart disease and stroke. Encouraged avoidance of tobacco products. Related to Hyperlipidemia Patient instructed o f the importance of taking medications as prescribed, following a low salt diet as well as getting physical activity as tolerated. Patient advised to keep BP log daily checking each morning and before bed. Patient to call the clinic if systolic blood pressure is greater than 150 and/or diastolic blood pressure is staying greater than 90. Related to Hypertensive crisis Lifestyle education regarding di et Related to Body mass index [BMI] 22.0-22.9, adult Giving encouragement to exercise Related to Body mass index [BMI] 22.0-22.9, adult Patient instructed o n appropriate use of medications prescribed for back/neck pain. Discussed conservative measures such as heat, ice, gentle strength stretching, and core muscle strengthening. Avoid heavy lifting, pulling, or tugging. Referral has been made to pain management. MRI was ordered and EMG for celeste upper and lower extremities that has not been completed. It may be beneficial to have these test to better guide your medical team in your care. Related to Radiculopathy, cervical region Patient instructed o f the importance of taking medications as prescribed, following a low salt diet as well as getting physical activity as tolerated. RTC in 2 weeks for f/u repeat BP and medication adjustment if BP has not normalized. Related to Essential (primary) hypertension Patient instructed t o continue current medication regimen. Patient instructed to avoid tobacco smoke, vaping and other environmental smoke exposure. Patient instructed to limit exertional activity until COPD symptoms are under better control. Discussed signs and symptoms with COPD exacerbation. If symptoms do not improve after using medications prescribed today patient instructed to contact the clinic for a follow up appointment. Related to COPD Physical activity as tolerated. Try to engage in some form of moderate physical activity for 30 minutes most days of the week. May modify activity as needed to reduce discomfort. Try to achieve/maintain a healthy body weight to reduce strain on musculoskeletal system. Verbalizes an understanding. Related to Body mass index [BMI] 22.0-22.9, adult It is recommended to stop smoking to increase overall health and decrease risk of cardiovascular disease. If you wish to stop smoking, there is a free online [place] from smoking course offered through our local health department. You may call [phone] for more information. Related to Nicotine dependence, cigarettes, uncomplicated Possible dehydration . Go to ER for further evaluation Related to Acute renal injury Eat foods rich in B- 12. Additional oral B12 replacement if indicated. RTC after ER evaluation/visit to start 6 week series of b12 injections. Related to Vitamin B12 deficiency anemia, unspecified Go to ER Related to Synco pe and collapse GO to ER Related to Hyper tensive crisis Go to the ER for fur ther evaluation r/o pneumonia vs chf Related to COPD w/ acute exacerbation Giving encouragement to exercise Related to Body mass index [BMI] 22.0-22.9, adult Lifestyle education regarding di et Related to Body mass index [BMI] 22.0-22.9, adult It is recommended to stop smoking to increase overall health and decrease risk of cardiovascular disease. If you wish to stop smoking, there is a free online [place] from smoking course offered through our local health department. You may call [phone] for more information. I have given you nicotine patches to begin for 4 weeks. We will reevaluate need for dose adjustment at this time. Apply patches to dry skin for 24 hours. Alternate application sites. If skin irritation occurs, discontinue use. Related to Nicotine dependence, cigarettes, uncomplicated Patient instructed t o continue current medication regimen. Patient instructed to avoid tobacco smoke, vaping and other environmental smoke exposure. Exertional activity as tolerated to maintain lung function. Discussed signs and symptoms with COPD exacerbation, patient instructed to contact the clinic if he or she shows any signs or symptoms of COPD exacerbation.Stop Smoking- I will try to see if our pharmacy will send your nicotine patches for you. Related to COPD Patient currently do ing well. BP in goal range. No medication changes. Patient instructed to follow a low salt diet, continuing taking blood pressure medications as prescribed. Keep routine follow up with clinic. Related to Essential (primary) hypertension Declines to go to Ur ologyIncrease the amount of water you drink dailyBP control was better todayUA still shows trace blood and protein in your Urine Related to Gross hematuria Continue current medicationsMethyprednisolone 80 mg today imketorolac 60 mg IMKeep upcoming appt w/ Neuro Related to Low back pain, unspecified Patient instructed o n appropriate use of medications prescribed for back pain. Discussed conservative measures such as heat, ice, gentle strength stretching, and core muscle strengthening. Avoid heavy lifting, pulling, or tugging. Contact the clinic if any worsening or new symptoms related to back pain occur.You have an appt on 03/22/22 at [address] 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 If you wish to stop smoking, there is a free online [place] from smoking course offered through our local health department. You may call [phone] for more information. I have given you nicotine patches to begin for 4 weeks. We will reevaluate need for dose adjustment at this time. Apply patches to dry skin for 24 hours. Alternate application sites. If skin irritation occurs, discontinue use. Related to Nicotine dependence, cigarettes, uncomplicated Take rest. Drink ple nty of fluids. Uses saline sinus rinses. Use prescription and/or OTC medications for symptom relief as instructed. RTC for worsening URI symptoms. If develops high and/or persistent fever, chills, shortness of breath, severe cough, will need urgent evaluation. Verbalizes an understanding. Related to Acute upper respiratory infection, unspecified Patient instructed o n appropriate use of medications prescribed for back pain. Discussed conservative measures such as heat, ice, gentle strength stretching, and core muscle strengthening. Avoid heavy lifting, pulling, or tugging. Contact the clinic if any worsening or new symptoms related to back pain occur.Make appt with Neurology for close follow-up of neuological changes, EMG- nerve conduction testing. Related to Other intervertebral disc degeneration, lumbosacral region Patient instructed o n appropriate use of medications prescribed for back pain. Discussed conservative measures such as heat, ice, gentle strength stretching, and core muscle strengthening. Avoid heavy lifting, pulling, or tugging. Contact the clinic if any worsening or new symptoms related to back pain occur. Related to Low back pain, unspecified MRI has been ordered Meloxicam refilledConsider pain management again- will wait for MR result and possibly Spine consult if necessary. Related to Pain in left hip Keep appt with Urology on at 1500 Related to Gross hematuria Patient currently do ing well. BP in goal range. No medication changes. Patient instructed to follow a low salt diet, continuing taking blood pressure medications as prescribed. Keep routine follow up with clinic. Related to Essential (primary) hypertension Apply ice to back, ( not directly on skin) for 20 minutes. May alternate with moist heat if stiffness occurs. Patient instructed on appropriate use of medications prescribed for back pain. Discussed conservative measures such as heat, ice, gentle strength stretching, and core muscle strengthening. Avoid heavy lifting, pulling, or tugging. Contact the clinic if any worsening or new symptoms related to back pain occur. Related to Low back pain, unspecified Discussed stress red uction techniques. Take medications as prescribed. Limit caffeine and nicotine. Try to follow a set sleep schedule. Get daily moderate exercise if able to tolerate.Increase duloxetine to 30 mg two times daily Related to Anxiety disorder, unspecified Increase duloxetine to 2 times daily to help with pain/anxietyStart taking Meloxicam two times dailyDO NOT TAKE IBUPROFEN WHILE USING MELOXICAMContinue to use asper cream on neck and backUse ice 20 minuntes in a towel to affected area, do no sleep with iceIf stiffness occurs alternate with moist heatI am going to send you to NEUROLOGY for further testing and treatment Related to Radiculopathy, cervical region rest, ice, compressi on as instructed to reduce joint pain and swellingDo not take more medication than instructedConsider another appointment with pain management. Related to Other chronic pain Low fat, low cholest halle diet. Avoid fatty, fried, and greasy foods. Physical activity as tolerated. Counseled on risks of associated comorbidities, such as heart disease and stroke. Encouraged avoidance of tobacco products. Related to Hyperlipidemia Patient instructed t o continue current medication regimen. Patient instructed to avoid tobacco smoke, vaping and other environmental smoke exposure. Patient instructed to limit exertional activity until COPD symptoms are under better control. Discussed signs and symptoms with COPD exacerbation. If symptoms do not improve after using medications prescribed today patient instructed to contact the clinic for a follow up appointment.Make sure you rinse your mouth out after each use of your inhalers Related to COPD Patient instructed o f the importance of taking medications as prescribed, following a low salt diet as well as getting physical activity as tolerated. Patient advised to keep BP log daily checking each morning and before bed. Patient to call the clinic if systolic blood pressure is greater than 150 and/or diastolic blood pressure is staying greater than 90. Related to Essential (primary) hypertension Discussed stress red uction techniques. Take medications as prescribed. Limit caffeine and nicotine. Try to follow a set sleep schedule. Get daily moderate exercise if able to tolerate.Take your depression/anxiety medications as instructed. Do not stop them abruptly. Monitor your symptoms around the 2nd week of medication. If you have suicidal or homicidal ideation, and feel you might act on them, go to the ER. Call me if this occurs. Related to Anxiety disorder, unspecified nicotine gum Related to COPD nicotine patch Related to COPD aversive conditioning Related to COPD remove triggers and cues Related to COPD smoke free car Related to COPD smoke free house Related to COPD Assessments Type Assessment Date No Information
--- NOTE | 2024-10-07 22:25 | ECG_ITS ---
APPROVED REPORT Exam: Resting ECG HR:89 bpm ECG Measurements Heart Rate 89 AXES TN 139 P 74 QRSd 92 QRS 59 QT 354 T 65 QTc 400 Conclusion SINUS RHYTHM NORMAL ECG UNCONFIRMED REPORT Normal sinus rhythm. No ST elevation or depression. QTc normal at 400 Electronically signed by : LAVINIA SANTIAGO, 10/08/2024 00:06:18
[2024-10-07 22:33] VITALS: BP 188/113; PULSE 88; RESP 20; TEMP 37.3; O2SAT 97; BMI 25.8
--- NOTE | 2024-10-07 22:38 | CT_ITS ---
PROCEDURE INFORMATION: Exam: CTA Chest With Contrast Exam date and time: 10/07/2024 11:05 PM Age: 74 years old Clinical indication: Pain; Chest pressure; Additional info: Back pain, neck pain, bilateral arm pain TECHNIQUE: Imaging protocol: Computed tomographic angiography of the chest with contrast. Exam focused on the arteries. 3D rendering (Not supervised by radiologist): MIP and/or 3D reconstructed images were created by the technologist. Radiation optimization: All CT scans at this facility use at least one of these dose optimization techniques: automated exposure control; mA and/or kV adjustment per patient size (includes targeted exams where dose is matched to clinical indication); or iterative reconstruction. Contrast material: ISOVUE; Contrast volume: 80 ml; Contrast route: INTRAVENOUS (IV); COMPARISON: CT ANGIO CHEST 05/08/2024 2:44 AM FINDINGS: Pulmonary arteries: Normal. No pulmonary emboli. Aorta: Moderate atherosclerosis of the aorta. No aneurysm or dissection. Lungs: Unremarkable. No consolidation. No masses. Pleural spaces: Unremarkable. No pneumothorax. No pleural effusion. Heart: Mild enlargement of the heart. Coronary arteries: There are coronary artery calcifications. Esophagus: Thickened appearance of the esophagus. Fluid in the distal esophagus likely secondary to reflux. Lymph nodes: Unremarkable. No enlarged lymph nodes. Bones/joints: DJD. Partially seen posterior cervical fixation hardware. Soft tissues: Unremarkable. IMPRESSION: No acute findings.
--- NOTE | 2024-10-07 22:38 | CT_ITS ---
PROCEDURE INFORMATION: Exam: CTA Abdomen and Pelvis With Contrast Exam date and time: 10/07/2024 11:05 PM Age: 74 years old Clinical indication: Abdominal pain; Acute; Additional info: Abdominal pain, back pain, n/v TECHNIQUE: Imaging protocol: Computed tomographic angiography of the abdomen and pelvis with contrast. Exam focused on the arteries. 3D rendering (Not supervised by radiologist): MIP and/or 3D reconstructed images were created by the technologist. Radiation optimization: All CT scans at this facility use at least one of these dose optimization techniques: automated exposure control; mA and/or kV adjustment per patient size (includes targeted exams where dose is matched to clinical indication); or iterative reconstruction. Contrast material: ISOVUE; Contrast volume: 80 ml; Contrast route: INTRAVENOUS (IV); COMPARISON: CT ANGIO ABD/PEL - TRAUMA 05/08/2024 2:43 AM FINDINGS: Esophagus: Fluid in the distal esophagus likely secondary to reflux. Aorta: [id number] atherosclerosis of the aorta. Infrarenal abdominal aorta measures up to 3.7 cm. No hemorrhage. No dissection. Celiac trunk and mesenteric arteries: No occlusion or significant stenosis. Renal arteries: No occlusion or significant stenosis. Right iliac arteries: Mild atherosclerosis of the right iliac arteries. 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 Left iliac arteries: Mild atherosclerosis of the left iliac arteries. Liver: Subcentimeter cysts of the liver. Gallbladder and biliary ducts: Unremarkable. No calcified stones. No ductal dilation. Pancreas: The pancreatic duct measures up to 4 mm. No obvious obstructing process. No pancreatic inflammation. Suggestion of a cystic structure in the tail of the pancreas measuring 7.5 mm series 2, image 368 Spleen: Unremarkable. No splenomegaly. Adrenal glands: Unremarkable. No mass. Kidneys and ureters: Unremarkable. No solid mass. No hydronephrosis. Stomach and bowel: Stomach distended by air and fluid. Fluid in large and small bowel loops. No wall thickening or obstructive pattern. Appendix: Appendix not clearly seen. No inflammation in the right lower quadrant. Intraperitoneal space: Unremarkable. No free air. No significant fluid collection. Lymph nodes: Unremarkable. No enlarged lymph nodes. Urinary bladder: Bladder decompressed with wall thickening. Reproductive: Unremarkable as visualized. Bones/joints: No acute fracture. Soft tissues: Unremarkable. IMPRESSION: 1. Stable infrarenal abdominal aortic aneurysm. No hemorrhage or dissection. 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 2. Bowel pattern with features most likely consistent with a gastroenteritis. 3. Increase in degree of pancreatic duct dilation. Small cystic structure of the tail of the pancreas which may be secondary to IPMN or a small cystic pancreatic neoplasm. Recommend clinical correlation and follow-up.
--- OUTSIDE RECORDS SUMMARY | 2024-10-07 22:42 | XMS_ITS | Clinical Summary ---
Author Organization Healthcare Address [address] [place] [address] Care Team Providers Care Board Certified Music Therapist Name Role Phone John Vance MD Primary Care Provider [phone] Social History Tobacco Use Types Packs/Day Years Used Date Smoking Tobacco: Every Day Sex and Gender Information Value Date Recorded Sex Assigned at Not on file Legal Sex Male 8:20 PM EDT Gender Identity Not on file Sexual Orientation Not on file Last Filed Vital Signs Vital Sign Reading Time Taken Comments Blood Pressure - - Pulse - - Temperature - - Respiratory Rate - - Oxygen Saturation - - Inhaled Oxygen Concentration - - Weight 63.5 kg (139 lb 15.9 oz) 08/28/2012 2:36 PM EDT Height - - Body Mass Index - - Plan of Treatment Health Maintenance Due Date Last Done Comments [facility]-Depression Screening 1951 [facility]-Hepatitis C Screening 1950 [facility]-Medicare Annual Wellness (AWV) 1950 [facility]-/Child/Adol SDOH Screenings 1950 [facility]- SDOH Screenings 1969 [facility]-Adult SDOH Screenings 1969 [facility]-DTaP,Tdap,and Td Vaccine s (1 - Tdap) 1970 CT Colonography 1996 Colonoscopy 1996 FIT-DNA 1996 FIT 1996 FOBT 1996 Sigmoidoscopy 1996 [facility]-Colorectal Cancer Screening 1996 [facility]-Pneumococcal Vaccine: 50 + Years (1 of 1 - PCV) 2001 [facility]-Zoster Vaccines (1 of 2) 2001 [facility]-UPLAG-19 Vaccine (1 - 20 24-25 season) 2023 [facility]-Influenza Vaccine (#1) 2024 [facility]-RSV Vaccine: 60+ Years o r (1 - 1-dose 75+ series) 2026 HPV Vaccines Aged Out No longer eligi ble based on patient's age to complete this topic [facility]-HIB Vaccines Aged Out No longer e ligible based on patient's age to complete this topic [facility]-Hepatitis A Vaccines Aged Out No longer eligible based on patient's age to complete this topic [facility]-IPV Vaccines Aged Out No longer e ligible based on patient's age to complete this topic [facility]-Rotavirus Vaccines Aged Out No lo nger eligible based on patient's age to complete this topic Insurance MEDICARE [employer] Care Teams Board Certified Music Therapist Relationship Specialty Start Date End Date John Vance MD [address] [place] [address] PCP - General 06/18/20
[2024-10-07 22:45] LABS: Hematocrit 44.7 % (42.0-52.0); Hemoglobin 14.8 g/dL (14.1-18.0); Immature Granulocytes % 0.4 %; Mean Corpuscular HGB Conc 33.1 g/dL (31.8-35.4); Mean Corpuscular Hemoglobin 28.2 pg (27.0-31.2); Mean Corpuscular Volume 85.1 fl (80-94); Nucleated Red Blood Cells % 0 %; Platelet Count 266 K/mm3 (142-424); Red Blood Count 5.25 M/mm3 (4.60-6.20); Red Cell Distribution Width-SD 42.9 fL; White Blood Count 8.1 K/mm3 (4.8-10.8)
[2024-10-07 22:47] LABS: Albumin Level 4.4 g/dl (3.5-5.0); Chloride 98 mmol/L (98-107); Sodium 136 mmol/L (136-145)
[2024-10-07] MEDS: ASPIRIN 325MG TABLET 325 MG PO (22:47)
[2024-10-07] MEDS: MORPHINE 2MG/ML SYRINGE 2 MG IV (22:47)
[2024-10-07 22:48] LABS: Potassium 4.0 mmoL/L (3.5-5.1)
[2024-10-07 22:50] LABS: Alanine Aminotransferase 11 U/L (12-78); Albumin/Globulin Ratio 1.3 (1.1-1.8); Alkaline Phosphatase 69 U/L (38-126); Anion Gap 10.0 mEq/L (5-15); Aspartate Amino Transferase 25 U/L (17-59); Bilirubin,Total 0.4 mg/dl (0.2-1.3); Blood Urea Nitrogen 23 mg/dl (9-20); Calcium 9.3 mg/dl (8.4-10.2); Carbon Dioxide 32 mmol/L (22.0-30.0); Creatinine Clearance Estimated 45 mL/min (50-200); Creatinine,Serum 1.50 mg/dl (0.66-1.25); Estimated Glomerular Filt Rate 46 ml/min (>60); GFR (African American) 56 ML/MIN (>60); Globulin 3.3 g/dL (1.3-3.2); Glucose 101 mg/dl (74-100); Lipase 50 U/L (23-300); Total Protein,Serum 7.7 g/dl (6.3-8.2)
[2024-10-07 22:51] LABS: Magnesium 1.7 mg/dl (1.6-2.3)
[2024-10-07 22:55] LABS: Lactate Venous 1.4 mmol/L (0.4-2.0); VBG HCO3 30.4 mmol/L (23-30); VBG PCO2 60.0 mmol/L (35-51); VBG PH 7.32 mmol/L (7.31-7.41); VBG PO2 26.5 mmol/L (28-40)
--- NOTE | 2024-10-07 22:59 | ED_ITS ---
Discharge Plan Disposition Patient Disposition: Home, Self-Care Condition: Good Prescriptions Prescriptions: New ondansetron 4 mg tablet,disintegrating 4 mg PO Q6H PRN (Reason: nausea and vomiting) 3 Days Qty: 10 0RF albuterol sulfate [Ventolin HFA] 90 mcg/actuation HFA aerosol inhaler 2 inh inhalation Q4H PRN (Reason: shortness of breath or wheezing) Qty: 8.5 0RF No Action albuterol sulfate [ProAir HFA] 90 mcg/actuation HFA aerosol inhaler 2 inh inhalation Q6HP PRN (Reason: Shortness Of Breath) rosuvastatin 20 mg tablet 20 mg PO DAILY duloxetine 30 mg capsule,delayed release(DR/EC) 60 mg PO DAILY montelukast 10 mg tablet 10 mg PO DAILY irbesartan 300 mg tablet 75 mg PO DAILY ipratropium-albuterol 0.5 mg-3 mg(2.5 mg base)/3 mL Solution For Nebulization 3 ml inhalation Q4RT 14 Days Qty: 1 0RF meloxicam 7.5 mg tablet 7.5 mg PO DAILY nifedipine 60 mg tablet extended release 24hr 60 mg PO DAILY fluoxetine 20 mg capsule 20 mg PO DAILY varenicline tartrate 0.5 mg (11)- 1 mg (42) tablets,dose pack 1 tab PO DAILY Referrals Follow up/Referrals: Michael Coats MD [Staff Physician, Cardiology] - See instructions Referral Note: Follow up for chest pain, AAA/aortic abnormalities, doesn't want referrals to external system Provider,Referral, [Primary Care Provider, Medical] - See instructions Activity Restrictions/Add. Instructions Additional Instructions/Restrictions: You were evaluated in the ER and are believed to be appropriate for discharge at this time. Take all of your medications as prescribed. It is extremely important that you take all of your medications. Take the prescribed Zofran (ondansetron) if needed for nausea or vomiting. Drink plenty of water to maintain good hydration. Continue using your albuterol inhaler as prescribed. Please follow-up with your primary care doctor in 1 to 2 days to discuss your ER visit and abnormalities of your aorta. You have also been referred back to cardiology, call Dr. Coats's office to make an appointment for close follow- up for the abnormalities of your aorta. Return to the ER with any new, worsening, or otherwise concerning symptoms. Clinical Impressions Clinical Impression: Chest pain, COPD (chronic obstructive pulmonary disease) AAA (abdominal aortic aneurysm) Qualifiers: Abdominal aorta location: infrarenal aorta Presence of rupture: without rupture Qualified Code(s): I71.43 - Infrarenal abdominal aortic aneurysm, without rupture Print Language Print Language: Indian Discharge ED Provider: Alex Aggarwal General Adult HPI <Alex Aggarwal MD - Last Filed: 10/08/24 00:04> General Chief complaint: Chest Pain Stated complaint: pain Time Seen by Provider: 10/07/24 22:31 Mode of Arrival: Wheelchair Source of Information: Patient Description of Symptoms (Recalled from ER Triage Doc. by RN): pt to ED with c/o CP, bilat arm pain, and neck pain since daylight . Pt reports he has not taken any of his home medications for 1 month. reports hx of heart attack with cardiac stents. History of Present Illness HPI narrative: Enmanuel Crocker is a 74 yea old male with a history of ascending aortic aneurysm, COPD, hypertension who presents to the emergency department for complaints of stabbing and tearing back pain that radiates to his bilateral arms and bilateral neck. Patient states that symptoms started this evening while he was sitting on his bed smoking a cigarette. Patient states that the pain was sudden and severe. He denies any chest pain. He does report 2 episodes of vomiting with this. He reports some diffuse abdominal pain as well. He reports shortness of breath. Patient states that he was previously on aspirin and blood pressure medication but stopped taking it last month as he did not feel that it was doing anything for him. Related Data Home Medications ?Medication ?Instructions ?Recorded ?Confirmed albuterol sulfate 90 mcg/actuation 2 inh inhalation Q6 HP PRN 03/22/22 02/05/24 aerosol inhaler (ProAir HFA) Shortness Of Breath duloxetine 30 mg capsule,delayed 60 mg PO DAILY Pain 0 03/22/22 02/05/24 release irbesartan 300 mg tablet 75 mg PO DAILY High blood pr essure 03/22/22 02/05/24 montelukast 10 mg tablet 10 mg PO DAILY Allergy sympt oms 03/22/22 02/05/24 rosuvastatin 20 mg tablet 20 mg PO DAILY Cholesterol 0 03/22/22 02/05/24 fluoxetine 20 mg capsule 20 mg PO DAILY 02/05/2401/07 meloxicam 7.5 mg tablet 7.5 mg PO DAILY 02/05/24 nifedipine 60 mg tablet,extended 60 mg PO DAILY 02/05/24 release 24 hr varenicline tartrate 0.5 mg (11)-1 1 tab PO DAILY 01/0702/05/24 mg (42) tablets in a dose pack Previous Rx's ?Medication ?Instructions ?Recorded ipratropium 0.5 mg-albuterol 3 mg 3 ml inhalation Q4RT 14 days #1 mL 05/18/22 (2.5 mg base)/3 mL nebulization soln albuterol sulfate 90 mcg/actuation 2 inh inhalation Q4 H PRN shortness 10/08/24 aerosol inhaler (Ventolin HFA) of breath or wheezing # 8.5 grams ondansetron 4 mg disintegrating 4 mg PO Q6H PRN nausea and 10/08/24 tablet vomiting 3 days #10 tabs Allergies Allergy/AdvReac Type Severity Reaction Status Date / Time acetaminophen (From Allergy Rash Verified 02/05/24 13:05 Tylenol-Codeine #3) codeine (From Allergy Rash Verified 02/05/24 13:05 Tylenol-Codeine #3) gabapentin Allergy Rash Verified 02/05/24 13:05 PFSH <Alex Aggarwal MD - Last Filed: 10/08/24 00:04> FOR[facility]LY [facility] Disclaimer: The information contained in this section may have been updated after the patient was seen, as this information can be updated by other users. Medical History (Updated 10/08/24 @ 01:51 by Heather Bennett MD) Hyperlipidemia Hypertension CAD (coronary artery disease) COPD (chronic obstructive pulmonary disease) Family History (Updated 05/17/22 @ 21:59 by Mary Velazquez RN) Other Family history of diabetes mellitus Social History (Updated 05/17/22 @ 22:02 by Mary Velazquez RN) Smoking Status: Current every day smoker tobacco type: cigarettes packs per day: 1 years smoked: 57 quit status: considering quitting second hand exposure: No alcohol intake: never substance use type: denies use current occupational status: retired Travel in the last 8 weeks?: None household members: none housing: apartment lives independently: Yes marital status: legally education level: elementary school current occupational exposures/hazards: No caffeine: Yes physical activity: none Have you lived/traveled outside [place] in past 30 days?: No Contact w/someone who lives/traveled outside US past 30 days?: No Exposure to someone with infectious disease in past 14 days?: No Do you have a fever (greater than 100.4 F or 38 C)?: No Have you tested positive for COVID-19?: No Exposed to someone with COVID-19 in past 14 days?: No Do you have a sore throat?: No Do you have a cough?: No Do you have any weakness?: No Do you have any diarrhea?: No Are you experiencing any unusual bleeding?: No Do you have any muscle aches/pain?: No Do you have any abdominal pain?: No Are you experiencing loss of taste or smell?: No Other Medical History Have you received the Flu Vaccine for this season: No Have you received the Pneumonia Vaccine: No <Alex Aggarwal MD - Last Filed: 10/08/24 00:04> ROS Obtained: Yes Systems reviewed as appropriate & no additional complaints except as documented Physical Exam <Alex Aggarwal MD - Last Filed: 10/08/24 00:04> General General appearance: alert and in no apparent distress Comment: Uncomfortable appearing Head Head exam: atraumatic Eye Eye exam: Present normal appearance ENT ENT exam: Present normal external ear exam Neck Neck exam: Present full ROM Chest Chest inspection: Present symmetric chest wall rise Respiratory Respiratory exam: Absent normal lung sounds bilaterally (Active cough, mild rhonchi bilaterally), respiratory distress, wheezes or stridor Cardiovascular Cardiovascular exam: Present regular rate, normal rhythm and other (Mildly diminished left radial pulse compared to right) Abdominal Exam Abdominal exam: Present soft, tenderness (Throughout with mild guarding but no peritonitis) and guarding; Absent distention exam: Present deferred Extremities Exam Extremities exam: Present normal inspection Back Exam Back exam: Present normal inspection Neurological Exam Neurological exam: Present alert and oriented X3 Psychiatric Psychiatric exam: Present normal affect Skin Skin exam: Present warm and dry Medical Decision Making <Alex Aggarwal MD - Last Filed: 10/08/24 00:04> Medical Records Screening: Per USPSTF and CDC recommendations, given the prevalence of disease in our region, it is our hospital?s policy to screen for HIV and viral Hepatitis for all patients aged 18 and over and those with ongoing risk factors. [place] Inquiry Pt receiving controlled substance: No Vital Signs: 10/07/24 22:33 10/07/24 23:18 10/07/24 23:30 Temperature 99.1 F Temperature Source Oral Pulse Rate 85 82 Pulse Rate [Left Radial] 88 Respiratory Rate 20 18 19 Blood Pressure 158/95 H 141/94 H Blood Pressure [Right Arm] 188/113 H Blood Pressure Mean [Right Arm] 138 Blood Pressure Source [Right Arm] Automatic Cuff Blood Pressure Position [Right Arm] Sitting 02 Sat by Pulse Oximetry 97 96 97 Oxygen Delivery Method Room Air 10/08/24 00:00 10/08/24 00:30 10/08/24 00:50 Temperature Temperature Source Pulse Rate 90 89 77 Pulse Rate [Left Radial] Respiratory Rate 21 25 H Blood Pressure 181/99 H 160/97 H Blood Pressure [Right Arm] Blood Pressure Mean [Right Arm] Blood Pressure Source [Right Arm] Blood Pressure Position [Right Arm] 02 Sat by Pulse Oximetry 95 96 Oxygen Delivery Method 10/08/24 01:14 Temperature Temperature Source Pulse Rate 86 Pulse Rate [Left Radial] Respiratory Rate Blood Pressure Blood Pressure [Right Arm] Blood Pressure Mean [Right Arm] Blood Pressure Source [Right Arm] Blood Pressure Position [Right Arm] 02 Sat by Pulse Oximetry Oxygen Delivery Method Lab Data Lab Results 10/07/24 22:27: WBC 8.1, RBC 5.25, Hgb 14.8, Hct 44.7, MCV 85.1, MCH 28.2, MCHC 33.1, RDW 13.9, Plt Count 266, MPV 9.5, Neut % (Auto) 81.6 H, Lymph % (Auto) 11.7, Collin % (Auto) 3.6, Eos % (Auto) 2.2, Baso % (Auto) 0.5, Neut # (Auto) 6.6, Lymph # (Auto) 0.9, Collin # (Auto) 0.3, Eos # (Auto) 0.2, Baso # (Auto) 0.0, PT 10.6, INR 0.95, APTT 28.2, Sodium 136, Potassium 4.0, Chloride 98, Carbon Dioxide 32 H, Anion Gap 10.0, BUN 23 H, Creatinine 1.50 H, Estimated Creat Clear 45, Estimated GFR 46 L, Est GFR ( Amer) 56 L, Glucose 101 H, Calcium 9.3, Magnesium 1.7, Total Bilirubin 0.4, AST 25, ALT 11 L, Alkaline Phosphatase 69, Troponin I < 0.01, C-Reactive Protein 6.4 H, NT-Pro-B Natriuret Pep 229 H, Total Protein 7.7 D, Albumin 4.4, Globulin 3.3 H, Albumin/Globulin Ratio 1.3, Lipase 50 10/07/24 22:38: VBG pH 7.32, VBG pCO2 60.0 H, VBG pO2 26.5 L, VBG HCO3 30.4 H, V BG Total CO2 32.3 H, VBG O2 Saturation 49.6 L, VBG Base Excess 4.4 H, VBG Lactic Acid 1.4 10/07/24 23:46: Chlamy pneumoniae PCR Not detected, Adenovirus (PCR) Not detected, B. pertussis DNA (PCR) Not detected, Coronavirus OC43 (PCR) Not detected, Coronavirus HKU1 (PCR) Not detected, Coronavirus 229E (PCR) Not detected, SARS-CoV-2 (PCR) Not detected, Coronavirus NL63 (PCR) Not detected, Human Metapneumovir PCR Not detected, Influenza A (H1) PCR Not detected, Influ A (H1N1/09) PCR Not detected, Influenza A (H3) PCR Not detected, Influenza Type A (PCR) Not detected, Influenza Type B (PCR) Not detected, M. pneumoniae (PCR) Not detected, Parainfluenza 1 (PCR) Not detected, Parainfluenza 2 (PCR) Not detected, Parainfluenza 3 (PCR) Not detected, Parainfluenza 4 (PCR) Not detected, RSV (PCR) Not detected, Entero/Rhino (PCR) Not detected 10/08/24 00:59: Urine Color Yellow, Urine Appearance Clear, Urine pH 6.5, Ur Specific Deridder <= 1.005, Urine Protein Negative, Urine Glucose (UA) Negative, Urine Ketones Negative, Urine Blood 1+ A, Urine Nitrate Negative, Urine Bilirubin Negative, Urine Urobilinogen 0.2, Ur Leukocyte Esterase Negative, Urine RBC Occasional, Ur Squamous Epith Cells Occasional, Urine Bacteria Trace 10/08/24 01:21: Troponin I < 0.01 10/07/24 22:27 10/07/24 22:27 Orders (Tests/Meds): ED MEDICATIONS Discontinued Medications Generic Name Dose Route Start Last Admin Trade Name Jez PRN Reason Stop Dose Admin Albuterol/Ipratropium 9 ml 10/07/24 23:55 10/08/24 00:49 Ipratropium/Albuterol 3 Ml Neb IH 10/07/24 23:56 9 ml ONCE ONE Administration Aspirin 325 mg 10/07/24 22:38 10/07/24 22:47 Aspirin 325mg Tablet PO 10/07/24 22:39 325 mg ONCE ONE Administration Gabapentin 300 mg 10/07/24 23:55 10/08/24 00:31 Gabapentin 100mg Capsule PO 10/07/24 23:56 300 mg ONCE ONE Administration Lactated Ringer's 500 mls @ 999 mls/hr 10/07/24 23:59 10/08/24 01:02 Lactated Ringer's 500ml IV 10/08/24 00:29 Infused .Q31M ONE Infusion Iopamidol 80 ml 10/07/24 23:14 10/07/24 23:15 Iopamidol-370 (76%);100ml Bottle IV 10/07/24 23:15 80 ml ONCE ONE Administration Irbesartan 75 mg 10/07/24 23:55 10/08/24 00:31 Irbesartan 75mg Tablet PO 10/07/24 23:56 75 mg ONCE ONE Administration Ketorolac Tromethamine 15 mg 10/07/24 23:55 10/08/24 00:32 Ketorolac 15mg/Ml Vial IV 10/07/24 23:56 15 mg ONCE ONE Administration Morphine Sulfate 2 mg 10/07/24 22:38 10/07/24 22:47 Morphine 2mg/Ml Syringe IV 10/07/24 22:39 2 mg ONCE ONE Administration Ondansetron HCl 4 mg 10/07/24 23:21 10/08/24 00:32 Ondansetron 4mg/2ml Vial IV 10/07/24 23:22 4 mg ONCE ONE Administration Sodium Chloride 50 ml 10/07/24 23:14 10/07/24 23:15 0.9 % Sodium Chloride 50 Ml Vial IV 10/07/24 23:15 50 ml ONCE ONE Administration Sodium Chloride 10 ml 10/07/24 23:14 10/07/24 23:15 Sodium Chloride 0.9% 10ml Syr (Rad Only) IV 10/07/24 23:15 10 ml ONCE ONE Administration ORDERS Category Date Time Status CT angio abdomen pelvis Stat Cat Scan 10/07/24 22:38 Completed CTA Chest [CT angio chest - dissection] Stat Cat Scan 10/07/24 22:38 Completed BNP [NT Pro Brain Natriuretic Pep.] Stat Lab 10/07/24 22:27 Completed CBC w/Auto Diff [Complete Blood Count Auto Diff] Stat Lab 10/07/24 22:27 Completed CMP [Comprehensive Metabolic Panel] Stat Lab 10/07/24 22:27 Completed CRP [C-Reactive Protein] Stat Lab 10/07/24 22:27 Completed Full Resp Panel w/COVID ([facility]) Routine Lab 10/07/24 23:46 Completed Lipase Stat Lab 10/07/24 22:27 Completed Magnesium Stat Lab 10/07/24 22:27 Completed PT INR [Prothrombin Time INR] Stat Lab 10/07/24 22:27 Completed PTT [Activated Partial Thrombo Time] Stat Lab 10/07/24 22:27 Completed Troponin I Q3H Lab 10/08/24 01:21 Completed Troponin I Q3H Lab 10/08/24 04:45 Ordered Troponin I Stat Lab 10/07/24 22:27 Completed UA [Urinalysis and Microscopic] Stat Lab 10/08/24 00:59 Completed VBG [Venous Blood Gas] Stat RT 10/07/24 22:38 Completed ECG Data Tracing #1: I reviewed this ECG and interpreted as documented below: Normal sinus rhythm. No ST elevation or depression. QTc of 400 Medical Decision Narrative: Enmanuel Crocker is a 74 yea old male with a history of ascending aortic aneurysm, COPD, hypertension who presents to the emergency department for complaints of stabbing and tearing back pain that radiates to his bilateral arms and bilateral neck. Patient states that symptoms started this evening while he was sitting on his bed smoking a cigarette. Patient states that the pain was sudden and severe. He denies any chest pain. He does report 2 episodes of vomiting with this. He reports some diffuse abdominal pain as well. He reports shortness of breath. Patient states that he was previously on aspirin and blood pressure medication but stopped taking it last month as he did not feel that it was doing anything for him. Family does state that he was diagnosed with cancer of some sort but never followed up about it. On arrival, patient is hypertensive with blood pressure with BP of 188/133, heart rate within normal meds, temperature 99.1 ?F, saturation 97% on room air. Physical exam, stated above, revealed an ill and uncomfortable appearing male in no respiratory distress. Patient has present radial pulses bilaterally, however left radial pulse appears slightly diminished compared to right. No murmurs or rubs are appreciated. Patient has some rhonchi and a dry cough on my exam but is moving appropriate amount of air. Abdomen is diffusely tender with mild amount of guarding but not peritonitic and nondistended. Differential diagnosis includes, but is not limited to: Aortic dissection, aortic aneurysm, ACS, pericarditis, pneumonia, pneumothorax, pleurisy, pulmonary embolism, metastatic disease, among others. Patient was administered 325 mg of aspirin as well as 2 mg of IV morphine and 4 mg of IV Zofran. Workup in the emergency department included: CTA of the chest dissection protocol, CTA abdomen pelvis, troponin, CBC with differential, CMP, CRP, lipase, magnesium, PTT, BNP, CBC with differential, PT/INR, EKG, VBG with lactate, urinalysis, full respiratory panel. EKG without ischemic changes. See interpretation above. At this time, patient's initial troponin is negative, coagulation studies unremarkable. No leukocytosis, no anemia. Patient's pH normal at 7.32, pCO2 elevated at 60 but appears well compensated with bicarb elevated at 30.4, likely secondary to COPD. Lactate normal at 1.4. Creatinine is chronically elevated and appears close to baseline at 1.5 with BUN of 23. Anion gap normal at 10. Liver enzymes within normal limits. Bilirubin within normal limits. Magnesium normal at 1.7. CRP mildly elevated at 6.4. BNP mildly elevated to 29. Lipase normal at 50. The remainder of his workup is pending at this time. CT imaging was interpreted by me personally. 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 Patient noted to have an infrarenal abdominal aortic aneurysm as well. Will have radiology expedite reads due to concern for possible dissection/expanding aneurysm. At this time, patient's care was handed off to the oncoming physician, Dr. Bennett, pending radiology follow-up and completion of his workup <Heather Bennett MD - Last Filed: 10/08/24 02:05> Vital Signs: 10/07/24 22:33 10/07/24 23:18 10/07/24 23:30 Temperature 99.1 F Temperature Source Oral Pulse Rate 85 82 Pulse Rate [Left Radial] 88 Respiratory Rate 20 18 19 Blood Pressure 158/95 H 141/94 H Blood Pressure [Right Arm] 188/113 H Blood Pressure Mean [Right Arm] 138 Blood Pressure Source [Right Arm] Automatic Cuff Blood Pressure Position [Right Arm] Sitting 02 Sat by Pulse Oximetry 97 96 97 Oxygen Delivery Method Room Air 10/08/24 00:00 10/08/24 00:30 10/08/24 00:50 Temperature Temperature Source Pulse Rate 90 89 77 Pulse Rate [Left Radial] Respiratory Rate 21 25 H Blood Pressure 181/99 H 160/97 H Blood Pressure [Right Arm] Blood Pressure Mean [Right Arm] Blood Pressure Source [Right Arm] Blood Pressure Position [Right Arm] 02 Sat by Pulse Oximetry 95 96 Oxygen Delivery Method 10/08/24 01:14 Temperature Temperature Source Pulse Rate 86 Pulse Rate [Left Radial] Respiratory Rate Blood Pressure Blood Pressure [Right Arm] Blood Pressure Mean [Right Arm] Blood Pressure Source [Right Arm] Blood Pressure Position [Right Arm] 02 Sat by Pulse Oximetry Oxygen Delivery Method Lab Data Lab Results 10/07/24 22:27: WBC 8.1, RBC 5.25, Hgb 14.8, Hct 44.7, MCV 85.1, MCH 28.2, MCHC 33.1, RDW 13.9, Plt Count 266, MPV 9.5, Neut % (Auto) 81.6 H, Lymph % (Auto) 11.7, Collin % (Auto) 3.6, Eos % (Auto) 2.2, Baso % (Auto) 0.5, Neut # (Auto) 6.6, Lymph # (Auto) 0.9, Collin # (Auto) 0.3, Eos # (Auto) 0.2, Baso # (Auto) 0.0, PT 10.6, INR 0.95, APTT 28.2, Sodium 136, Potassium 4.0, Chloride 98, Carbon Dioxide 32 H, Anion Gap 10.0, BUN 23 H, Creatinine 1.50 H, Estimated Creat Clear 45, Estimated GFR 46 L, Est GFR ( Amer) 56 L, Glucose 101 H, Calcium 9.3, Magnesium 1.7, Total Bilirubin 0.4, AST 25, ALT 11 L, Alkaline Phosphatase 69, Troponin I < 0.01, C-Reactive Protein 6.4 H, NT-Pro-B Natriuret Pep 229 H, Total Protein 7.7 D, Albumin 4.4, Globulin 3.3 H, Albumin/Globulin Ratio 1.3, Lipase 50 10/07/24 22:38: VBG pH 7.32, VBG pCO2 60.0 H, VBG pO2 26.5 L, VBG HCO3 30.4 H, V BG Total CO2 32.3 H, VBG O2 Saturation 49.6 L, VBG Base Excess 4.4 H, VBG Lactic Acid 1.4 10/07/24 23:46: Chlamy pneumoniae PCR Not detected, Adenovirus (PCR) Not detected, B. pertussis DNA (PCR) Not detected, Coronavirus OC43 (PCR) Not detected, Coronavirus HKU1 (PCR) Not detected, Coronavirus 229E (PCR) Not detected, SARS-CoV-2 (PCR) Not detected, Coronavirus NL63 (PCR) Not detected, Human Metapneumovir PCR Not detected, Influenza A (H1) PCR Not detected, Influ A (H1N1/09) PCR Not detected, Influenza A (H3) PCR Not detected, Influenza Type A (PCR) Not detected, Influenza Type B (PCR) Not detected, M. pneumoniae (PCR) Not detected, Parainfluenza 1 (PCR) Not detected, Parainfluenza 2 (PCR) Not detected, Parainfluenza 3 (PCR) Not detected, Parainfluenza 4 (PCR) Not detected, RSV (PCR) Not detected, Entero/Rhino (PCR) Not detected 10/08/24 00:59: Urine Color Yellow, Urine Appearance Clear, Urine pH 6.5, Ur Specific Deridder <= 1.005, Urine Protein Negative, Urine Glucose (UA) Negative, Urine Ketones Negative, Urine Blood 1+ A, Urine Nitrate Negative, Urine Bilirubin Negative, Urine Urobilinogen 0.2, Ur Leukocyte Esterase Negative, Urine RBC Occasional, Ur Squamous Epith Cells Occasional, Urine Bacteria Trace 10/08/24 01:21: Troponin I < 0.01 Orders (Tests/Meds): ED MEDICATIONS Discontinued Medications Generic Name Dose Route Start Last Admin Trade Name Jez PRN Reason Stop Dose Admin Albuterol/Ipratropium 9 ml 10/07/24 23:55 10/08/24 00:49 Ipratropium/Albuterol 3 Ml Neb IH 10/07/24 23:56 9 ml ONCE ONE Administration Aspirin 325 mg 10/07/24 22:38 10/07/24 22:47 Aspirin 325mg Tablet PO 10/07/24 22:39 325 mg ONCE ONE Administration Gabapentin 300 mg 10/07/24 23:55 10/08/24 00:31 Gabapentin 100mg Capsule PO 10/07/24 23:56 300 mg ONCE ONE Administration Lactated Ringer's 500 mls @ 999 mls/hr 10/07/24 23:59 10/08/24 01:02 Lactated Ringer's 500ml IV 10/08/24 00:29 Infused .Q31M ONE Infusion Iopamidol 80 ml 10/07/24 23:14 10/07/24 23:15 Iopamidol-370 (76%);100ml Bottle IV 10/07/24 23:15 80 ml ONCE ONE Administration Irbesartan 75 mg 10/07/24 23:55 10/08/24 00:31 Irbesartan 75mg Tablet PO 10/07/24 23:56 75 mg ONCE ONE Administration Ketorolac Tromethamine 15 mg 10/07/24 23:55 10/08/24 00:32 Ketorolac 15mg/Ml Vial IV 10/07/24 23:56 15 mg ONCE ONE Administration Morphine Sulfate 2 mg 10/07/24 22:38 10/07/24 22:47 Morphine 2mg/Ml Syringe IV 10/07/24 22:39 2 mg ONCE ONE Administration Ondansetron HCl 4 mg 10/07/24 23:21 10/08/24 00:32 Ondansetron 4mg/2ml Vial IV 10/07/24 23:22 4 mg ONCE ONE Administration Sodium Chloride 50 ml 10/07/24 23:14 10/07/24 23:15 0.9 % Sodium Chloride 50 Ml Vial IV 10/07/24 23:15 50 ml ONCE ONE Administration Sodium Chloride 10 ml 10/07/24 23:14 10/07/24 23:15 Sodium Chloride 0.9% 10ml Syr (Rad Only) IV 10/07/24 23:15 10 ml ONCE ONE Administration ORDERS Category Date Time Status CT angio abdomen pelvis Stat Cat Scan 10/07/24 22:38 Completed CTA Chest [CT angio chest - dissection] Stat Cat Scan 10/07/24 22:38 Completed BNP [NT Pro Brain Natriuretic Pep.] Stat Lab 10/07/24 22:27 Completed CBC w/Auto Diff [Complete Blood Count Auto Diff] Stat Lab 10/07/24 22:27 Completed CMP [Comprehensive Metabolic Panel] Stat Lab 10/07/24 22:27 Completed CRP [C-Reactive Protein] Stat Lab 10/07/24 22:27 Completed Full Resp Panel w/COVID ([facility]) Routine Lab 10/07/24 23:46 Completed Lipase Stat Lab 10/07/24 22:27 Completed Magnesium Stat Lab 10/07/24 22:27 Completed PT INR [Prothrombin Time INR] Stat Lab 10/07/24 22:27 Completed PTT [Activated Partial Thrombo Time] Stat Lab 10/07/24 22:27 Completed Troponin I Q3H Lab 10/08/24 01:21 Completed Troponin I Q3H Lab 10/08/24 04:45 Ordered Troponin I Stat Lab 10/07/24 22:27 Completed UA [Urinalysis and Microscopic] Stat Lab 10/08/24 00:59 Completed VBG [Venous Blood Gas] Stat RT 10/07/24 22:38 Completed Medical Decision Narrative: Enmanuel Crocker is a 74 yea old male with a history of ascending aortic aneurysm, COPD, hypertension who presents to the emergency department for complaints of stabbing and tearing back pain that radiates to his bilateral arms and bilateral neck. Patient states that symptoms started this evening while he was sitting on his bed smoking a cigarette. Patient states that the pain was sudden and severe. He denies any chest pain. He does report 2 episodes of vomiting with this. He reports some diffuse abdominal pain as well. He reports shortness of breath. Patient states that he was previously on aspirin and blood pressure medication but stopped taking it last month as he did not feel that it was doing anything for him. Family does state that he was diagnosed with cancer of some sort but never followed up about it. On arrival, patient is hypertensive with blood pressure with BP of 188/133, heart rate within normal meds, temperature 99.1 ?F, saturation 97% on room air. Physical exam, stated above, revealed an ill and uncomfortable appearing male in no respiratory distress. Patient has present radial pulses bilaterally, however left radial pulse appears slightly diminished compared to right. No murmurs or rubs are appreciated. Patient has some rhonchi and a dry cough on my exam but is moving appropriate amount of air. Abdomen is diffusely tender with mild amount of guarding but not peritonitic and nondistended. Differential diagnosis includes, but is not limited to: Aortic dissection, aortic aneurysm, ACS, pericarditis, pneumonia, pneumothorax, pleurisy, pulmonary embolism, metastatic disease, among others. Patient was administered 325 mg of aspirin as well as 2 mg of IV morphine and 4 mg of IV Zofran. Workup in the emergency department included: CTA of the chest dissection protocol, CTA abdomen pelvis, troponin, CBC with differential, CMP, CRP, lipase, magnesium, PTT, BNP, CBC with differential, PT/INR, EKG, VBG with lactate, urinalysis, full respiratory panel. EKG without ischemic changes. See interpretation above. At this time, patient's initial troponin is negative, coagulation studies unremarkable. No leukocytosis, no anemia. Patient's pH normal at 7.32, pCO2 elevated at 60 but appears well compensated with bicarb elevated at 30.4, likely secondary to COPD. Lactate normal at 1.4. Creatinine is chronically elevated and appears close to baseline at 1.5 with BUN of 23. Anion gap normal at 10. Liver enzymes within normal limits. Bilirubin within normal limits. Magnesium normal at 1.7. CRP mildly elevated at 6.4. BNP mildly elevated to 29. Lipase normal at 50. The remainder of his workup is pending at this time. CT imaging was interpreted by me personally. 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 Patient noted to have an infrarenal abdominal aortic aneurysm as well. Will have radiology expedite reads due to concern for possible dissection/expanding aneurysm. At this time, patient's care was handed off to the oncoming physician, Dr. Bennett, pending radiology follow-up and completion of his workup Bennett: Upon my assumption of care patient is no longer complaining of chest pain. He states he is still having pain in the back of his neck radiating down both arms. He has a history of extensive neck surgery, radiculopathy. He states he had a prescription for gabapentin briefly from his PCP and that seemed to help his pain but they no longer prescribe it for him. He is neurologically intact throughout with benign cardiac exam. On pulmonary exam he has wheezing throughout with a history of COPD and some hypercarbia on VBG without other findings of COPD exacerbation at this time. DuoNebs being administered. I agree with the assessment and plan from Dr. Aggarwal and am following up on the CT angiography of the chest, abdomen, pelvis. I personally interpreted these and do not appreciate obvious new dissection flap, there does appear to be intra-abdominal aortic aneurysm without rupture that appears to be stable from prior on my personal interpretation. I do also appreciate either dissection flap or abnormal appearing bifurcation at the right common iliac artery, this appears stable and unchanged from May of this year. See radiology reads for full interpretations. Radiology reads are in agreement with my interpretations and states that patient's vascular abnormalities in multiple locations of the aorta are unchanged. They do also comment on gastroenteritis being present. Administered 1 dose of gabapentin as well as Toradol. I discussed at length the patient not following up with his physicians and not taking his medications which are putting him at risk for dissection and rupture which could be lethal. Patient understands he needs to be taking his home medications. He reports he has significant difficulties with transportation and therefore does not want referrals to outside systems for follow-up of vascular pathology but is willing to follow-up within [facility] system. I administered irbesartan in the ER for hypertension. He has already received Zofran. He is also receiving small IV fluid bolus due to mild kidney dysfunction but no SHELBY. I explained I am not going to be prescribing gabapentin for him but that he needs to follow-up with his primary care doctor to address these chronic problems and that he should go back to cardiology for further follow-up of his vascular pathology. He has seen them in the past for the abdominal aortic aneurysm and is agreeable to this. Family at bedside understands these findings and recommendations as well. Repeat troponin also undetectably low less than 0.01 which is very reassuring against acute cardiac pathology. On reassessment patient is stable, pain of the neck/arms is improved. He has no neurologic deficits. He remains asymptomatic from chest and abdominal pain and is tolerating oral intake. I provided referral back to cardiology for follow-up of his vascular abnormalities since he has seen them in the past, I also recommended follow-up with his primary care doctor to address his chronic pain and other chronic problems. I gave him strict instructions to continue taking his home medications as prescribed. I also recommended adequate hydration to protect kidney function, encouraged him to continue using his DuoNebs and COPD medications at home. I gave him a prescription for albuterol since he is not sure how much is left in his home inhaler. He was also given strict return precautions for the ER. He and family at bedside indicated understanding to all instructions and the patient was discharged in stable condition. Critical Care <Alex Aggarwal MD - Last Filed: 10/08/24 00:04> Critical Care Time Critical Care Time: No
[2024-10-07 23:00] LABS: NT Pro Brain Natriuretic Pep. 229 pg/mL (0-125)
[2024-10-07 23:03] LABS: Troponin I < 0.01 ng/ml (0.00-0.034)
[2024-10-07 23:14] LABS: Activated Partial Thrombo Time 28.2 seconds (22.8-30.6); INR 0.95 (0.9-1.1); Prothrombin Time 10.6 seconds (10.1-12.5)
[2024-10-07] MEDS: IOPAMIDOL-370 (76%);100ML BOTTLE 80 ML IV (23:15)
[2024-10-07] MEDS: SODIUM CHLORIDE 0.9% 10ML SYR (RAD ONLY) 10 ML IV (23:15)
[2024-10-07] MEDS: 0.9 % SODIUM CHLORIDE 50 ML VIAL IV (23:15)
[2024-10-07 23:18] VITALS: BP 158/95; PULSE 85; RESP 18; O2SAT 96
[2024-10-07 23:30] VITALS: BP 141/94; PULSE 82; RESP 19; O2SAT 97
[2024-10-07 23:37] LABS: C-Reactive Protein 6.4 mg/L (0-4)
[2024-10-07 23:51] LABS: Adenovirus,PCR Not Detected (NotDetected); Chlamydophila Pneumoniae, PCR Not Detected (NotDetected); Coronavirus 19, PCR Not Detected (NotDetected); Coronovirus HKU1,PCR Not Detected (NotDetected); Influenza A, PCR Not Detected (NotDetected); Influenza AH1, 2009 Not Detected (NotDetected); Influenza AH1, PCR Not Detected (NotDetected); Influenza AH3,PCR Not Detected (NotDetected); Influenza B, PCR Not Detected (NotDetected); Mycoplasma Pneumoniae, PCR Not Detected (NotDetected); Parainfluenza 1, PCR Not Detected (NotDetected); Parainfluenza 2, PCR Not Detected (NotDetected); Parainfluenza 3, PCR Not Detected (NotDetected); Parainfluenza 4, PCR Not Detected (NotDetected)
[2024-10-08] VITALS: BP 181/99; PULSE 90; RESP 21; O2SAT 95
[2024-10-08 00:30] VITALS: BP 160/97; PULSE 89; RESP 25; O2SAT 96
[2024-10-08] MEDS: GABAPENTIN 100MG CAPSULE 300 MG PO (00:31)
[2024-10-08] MEDS: IRBESARTAN 75MG TABLET 75 MG PO (00:31)
[2024-10-08] MEDS: RINGERS SOLUTION,LACTATED 500 ML 999 ML IV (00:31)
[2024-10-08] MEDS: ONDANSETRON 4MG/2ML VIAL 4 MG IV (00:32)
[2024-10-08] MEDS: KETOROLAC 15MG/ML VIAL 15 MG IV (00:32)
[2024-10-08] MEDS: IPRATROPIUM/ALBUTEROL 3 ML NEB 9 ML IH (00:49)
[2024-10-08 00:50] VITALS: PULSE 77
[2024-10-08 01:07] LABS: Microscopic, Urine URINE MICROSCOPIC (MICROSCOPIC)
[2024-10-08 01:14] VITALS: PULSE 86
[2024-10-08 01:14] LABS: Bilirubin,Urine Negative (Negative); Color,Urine YELLOW (Yellow); Glucose,Urine (UA) Negative (Negative); Ketones,Urine Negative (Negative); Leukocyte Esterase,Urine Negative (Negative); PH,Urine 6.5 (5.0-8.5); Protein,Urine Negative (Negative); Specific Gravity, Urine <= 1.005 (1.005-1.030); Urobilinogen,Urine 0.2 EU/dl (0.2)
[2024-10-08 01:23] LABS: Bacteria,Urine Trace /lpf; RBC,Urine Occasional #/hpf (0-3); Squamous Epithelial Cell,Urine Occasional #/hpf (0-5)
[2024-10-08 01:50] LABS: Troponin I < 0.01 ng/ml (0.00-0.034)
[2024-10-08 02:21] VITALS: BP 164/96; PULSE 98; RESP 21; TEMP 37.3; O2SAT 94
== END 2024-10-08 02:23 | disposition home or self-care (01) ==
PROVIDERS: Emergency Provider Student in an Organized Health Care Education/Training Program
DX: R07.9 Chest pain, unspecified (principal); I71.40 Abdominal aortic aneurysm, without rupture, unspecified; J44.9 Chronic obstructive pulmonary disease, unspecified; I10 Essential (primary) hypertension
CPT/HCPCS: 0223U; 71275; 74174; 80053; 81001; 82803; 83690; 83735; 83880; 84484; 85025; 85610; 85730; 86140; 93005; 96374; 96375; 99285; J1885; J2270; J2405; J7120; Q9967